=== PATIENT | female | born 1985 | race Caucasian/White ===

== ENCOUNTER 2016-03-07 18:05 | Emergency (ER) | payer MEDICAID ==
--- NOTE | 2016-03-07 18:27 | ER Document Report ---
ED Medical Screen (RME) - General Stated Complaint: HEAD PAIN Notes: headache over the past couple of days that has become more severe today. dizzyness h/o HTN I have greeted and performed a rapid initial assessment of this patient. A comprehensive ED assessment and evaluation of the patient, analysis of test results and completion of the medical decision making process will be conducted by additional ED providers. TRAVEL OUTSIDE OF THE [place] IN LAST 30 DAYS: No - Related Data Allergies/Adverse Reactions: No Known Allergies Allergy (Unverified 01/05/16 20:48) Past Medical History - Past Medical History Cardiac Medical History: Reports: Hx Hypertension Past Surgical History: Reports: Hx Appendectomy, Hx Orthopedic Surgery - L Knee , Hx Tubal Ligation - Immunizations Hx Diphtheria, Pertussis, Tetanus Vaccination: Yes Physical Exam - Vital signs Vitals: Temp Pulse Resp BP Pulse Ox 98.3 F 88 20 149/113 H 97 03/07/16 18:24 03/07/16 18:24 03/07/16 18:24 03/07/16 18:24 03/07/16 18:24 Course - Vital Signs Vital signs: Temp Pulse Resp BP Pulse Ox 98.3 F 88 20 149/113 H 97 03/07/16 18:24 03/07/16 18:24 03/07/16 18:24 03/07/16 18:24 03/07/16 18:24
[2016-03-07] MEDS ORDERED: ACETAMINOPHEN 325 MG TABLET PO ONE (18:31)
[2016-03-07 19:26] LABS: AMORPHOUS SEDIMENT,URINE TRACE /HPF; APPEARANCE,URINE TURBID; BILIRUBIN,URINE NEGATIVE (NEGATIVE); GLUCOSE, URINE NEGATIVE (NEGATIVE); KETONES,URINE NEGATIVE (NEGATIVE); LEUKOCYTE ESTERASE,URINE LARGE (NEGATIVE); NITRITE,URINE NEGATIVE (NEGATIVE); PROTEIN,URINE 30 mg/dL (NEGATIVE); URINE SPECIFIC GRAVITY 1.028
[2016-03-07 19:33] LABS: ALANINE AMINOTRANSFERASE 36 U/L (9-52); ALBUMIN 4.3 g/dL (3.5-5.0); ALKALINE PHOSPHATASE 89 U/L (38-126); ANION GAP 14 (5-19); ASPARTATE AMINO TRANSFERASE 24 U/L (14-36); BILIRUBIN,TOTAL 0.4 mg/dL (0.2-1.3); BLOOD UREA NITROGEN 15 mg/dL (7-20); CALCIUM 9.6 mg/dL (8.4-10.2); CARBON DIOXIDE 27 mmol/L (22-30); CHLORIDE 102 mmol/L (98-107); CREATININE RESULT 0.76 mg/dL (0.52-1.25); GLUCOSE 106 mg/dL (75-110); POTASSIUM 4.3 mmol/L (3.6-5.0); SODIUM 142.6 mmol/L (137-145); TOTAL PROTEIN 8.1 g/dL (6.3-8.2)
[2016-03-07] MEDS ORDERED: METOCLOPRAMIDE HCL INJ/PF 10 MG/2 ML SDV IM ONE (22:12)
[2016-03-07] MEDS ORDERED: DIPHENHYDRAMINE HCL 50 MG/ML VIAL IM ONE (22:12)
[2016-03-07] MEDS ORDERED: KETOROLAC TROMETHAMINE 60 MG/2 ML SDV IM ONE (22:12)
--- NOTE | 2016-03-07 22:51 | ER Document Report ---
ED General - General Chief Complaint: Headache Stated Complaint: HEAD PAIN Notes: Patient is a 30-year-old female who presents with complaint of a headache. She says been ongoing for 3 days. Gradual in onset. Gradually worsening over last 3 days. Pain is focal to the frontal sinuses. She does not have pain anywhere else. She denies any vomiting. No fevers. No recent infections. No recent trauma or injuries. No focal weakness or numbness. No blurred vision. Some photophobia. No other complaints at this time. TRAVEL OUTSIDE OF THE [place] IN LAST 30 DAYS: No - Related Data Allergies/Adverse Reactions: No Known Allergies Allergy (Verified 03/07/16 18:30) Past Medical History - Social History Smoking Status: Unknown if Ever Smoked Chew tobacco use (# tins/day): No Frequency of alcohol use: None Drug Abuse: None Family History: Hypertension Patient has suicidal ideation: No Patient has homicidal ideation: No - Past Medical History Cardiac Medical History: Reports: Hx Hypertension Renal/ Medical History: Denies: Hx Peritoneal Dialysis Past Surgical History: Reports: Hx Appendectomy, Hx Orthopedic Surgery - L Knee , Hx Tubal Ligation - Immunizations Hx Diphtheria, Pertussis, Tetanus Vaccination: Yes Review of Systems - Review of Systems Notes: My Normal Review Basic REVIEW OF SYSTEMS: CONSTITUTIONAL : Denies fever, chills, or sweats. Denies recent illness. EENT: Denies eye, ear, throat, or mouth pain or symptoms. Denies nasal or sinus congestion. RESPIRATORY: Denies cough, cold, or chest congestion. Denies shortness of breath, difficulty breathing, or wheezing. GASTROINTESTINAL: Denies abdominal pain. Denies nausea, vomiting, or diarrhea. Denies constipation. Last BM: GENITOURINARY: Denies difficulty urinating, painful urination, burning, frequency, or blood in urine. MUSCULOSKELETAL: Denies neck or back pain or joint pain or swelling. SKIN: Denies rash or skin lesions. NEUROLOGICAL: Denies altered mental status or loss of consciousness. Has a headache. Denies weakness or paralysis or loss of use of either side. Denies problems with gait or speech. Denies sensory or motor loss. ALL OTHER SYSTEMS REVIEWED AND NEGATIVE. Physical Exam - Vital signs Vitals: Temp Pulse Resp BP Pulse Ox 98.3 F 88 20 149/113 H 97 03/07/16 18:24 03/07/16 18:24 03/07/16 18:24 03/07/16 18:24 03/07/16 18:24 - Notes Notes: General Appearance: Well nourished, alert, cooperative, no acute distress, moderate obvious discomfort. Vitals: reviewed, See vital signs table. Head: no swelling or tenderness to the head Eyes: PERRL, EOMI, Conjuctiva clear Mouth: No decreasd moisture Neck: Supple, no neck tenderness, No thyromegaly Lungs: No wheezing, No rales, No rhonci, No accessory muscle use, good air exchange bilaterally. Heart: Normal rate, Regular rythm, No murmur, no rub Abdomen: Normal BS, soft, No rigidity, No abdominal tenderness, No guarding, no rebound, no abdominal masses, no organomegaly Extremities: strength 5/5 in all extremities, good pulses in all extremities, no swelling or tenderness in the extremities, no edema. Skin: warm, dry, appropriate color, no rash Neuro: speech clear, oriented x 3, normal affect, responds appropriately to questions. Cranial nerves II through XII are intact. Distal sensation intact. Patient moves all extremities without difficulty. Course - Vital Signs Vital signs: Temp Pulse Resp BP Pulse Ox 98.3 F 88 20 167/91 H 97 03/07/16 18:24 03/07/16 18:24 03/07/16 18:24 03/07/16 18:29 03/07/16 18:24 - Laboratory Result Diagrams: 03/07/16 18:55 Laboratory results interpreted by me: 03/07/16 18:55 Urine Protein 30 H Urine Blood MODERATE H Urine Urobilinogen 2.0 H Ur Leukocyte Esterase LARGE H - EKG Interpretation by Me Additional EKG results interpreted by me: 03/07/16 22:51 EKG is reviewed and interpreted by me. EKG shows normal sinus rhythm with rate of [address] segment elevation or depression. No ischemic T wave inversions. ID interval, QRS duration, QTC intervals are within normal range. No old EKG available for comparison. - Transfer of Care Notes: 03/07/16 23:59 Patient's headache is gone. She is feeling improved. She looks well. She has no neurologic deficits on exam. I do not suspect subarachnoid hemorrhage that her headache is gradual in onset and gradually worsening over last 3 days. It was not sudden or maximal in onset. I suspect there may be a sinus component to her headache being that her sinuses are very tender to touch on palpation. She has no fevers and no fluid levels on CT scan in her sinuses. Do not feel that antibiotics. At this time. CT scan was ordered in triage before evaluated the patient. CT scan was negative. Patient encouraged return to ER she has recurrent worsening headache, fevers, vomiting, or feels unwell. Patient agrees with plan and will be discharged home. Dictation of this chart was performed using voice recognition software; therefore, there may be some unintended grammatical errors. Discharge - Discharge Clinical Impression: Headache Qualifiers: Headache type: unspecified Headache chronicity pattern: acute headache Intractability: not intractable Qualified Code(s): R51 - Headache Hypertension Qualifiers: Hypertension type: unspecified secondary hypertension Qualified Code(s): I15.9 - Secondary hypertension, unspecified; I15 - Secondary hypertension Condition: Good Disposition: HOME, SELF-CARE Additional Instructions: HEADACHE: The physician does not feel that the headache you are experiencing has a serious underlying cause. Most headaches are due to emotional stress, with resultant muscle tension (tension headache). Occasionally, headaches are secondary to changes in the blood vessels of the scalp (vascular headache and migraine headache). Sometimes, a headache is the first symptom of another developing illness, such as a viral infection. You have no evidence of stroke, bleeding, meningitis, or other serious cause of your headache. The treatment of headaches varies with the severity and cause of the pain. Not all headaches need pain shots. In fact, there is evidence that using narcotics for headaches may make them worse in the long run. The physician will determine the therapy that's in your best interest. If you develop a fever, if the headache is different from any you've previously experienced, or if the headache progressively worsens, then call your physician at once or go to the emergency room. REGLAN (METOCLOPRAMIDE): Reglan has been prescribed. This medicine affects the stomach and intestines. It can be used to treat nausea and vomiting, to prevent reflux of stomach acid up into the esophagus, or to increase the contractions of the stomach and intestines. It is often prescribed for esophagitis, and for paralysis of the stomach in diabetics. Reglan can cause either mild restlessness or drowsiness. You should contact the doctor at once if you become extremely restless, anxious, or cannot sleep, or if you develop uncontrollable motions of the lips, tongue, or jaw. Do not take alcohol with this medicine. Do not drive or operate machinery until you have been taking this medicine long enough to know how it affects you. Call the doctor if you develop abdominal pains, lightheadedness, black stool, or blood in the stool or vomitus. USE OF DIPHENHYDRAMINE: Diphenhydramine (Benadryl) is an antihistamine and has been recommended to help treat your headache and to prevent side effects of other medications used to treat headaches. The medication can be repeated four times daily. Age Elixir (12.5 mg/tsp) 25 mg pill adult 1-2 tabs Antihistamines may cause drowsiness, especially with the first dose. Do not operate machinery or drive while under the effects of the medication. Do not combine the medication with alcohol, or with any other medication without talking to your doctor. FOLLOW-UP CARE: If you have been referred to a physician for follow-up care, call the physician s office for an appointment as you were instructed or within the next two days. If you experience worsening or a significant change in your symptoms, notify the physician immediately or return to the Emergency Department at any time for re-evaluation. Please follow up with your doctor in 2-3 days for reevaluation. Please return to the ER if you have recurrent headaches, fevers, vomiting, blurred vision, or feel unwell. Please keep a log of her blood pressures. Please take them daily. Please bring a log of your blood pressures to a primary care physician to evaluate to see if you need to be started on blood pressure medications if your blood pressure continues to be high. Prescriptions: Diphenhydramine HCl [Benadryl] 25 mg PO Q6 PRN #30 capsule PRN Reason: Metoclopramide HCl [Reglan 10 mg Tablet] 1 tab PO ASDIR PRN #25 tablet PRN Reason: Forms: Elevated Blood Pressure
[2016-03-08 00:37] VITALS: BP 137/94
--- NOTE | 2016-03-08 08:01 | EKG REPORT ---
SEVERITY:- NORMAL ECG - SINUS RHYTHM : Confirmed by: Eusebio Chu MD 08-Mar-2016 08:00:36
== END 2016-03-08 01:00 | disposition home or self-care (01) ==
LOC: ER 18:05
DX: I10 Essential (primary) hypertension (principal); R51 Headache
CPT/HCPCS: 99285; 96372; 36415; 80053; 81001; 70450; 93005; 93010; J3490; J1200; J1885; J2765

== ENCOUNTER 2016-04-03 15:19 | Emergency (ER) | payer MEDICAID ==
[2016-04-03] MEDS ORDERED: IBUPROFEN 800 MG TABLET PO ONE (16:41)
--- NOTE | 2016-04-03 16:41 | ER Document Report ---
ED Medical Screen (RME) - General Stated Complaint: LEFT FOOT INJURY Time seen by provider: 16:40 Mode of Arrival: Ambulatory Information source: Patient Notes: 30-year-old female presents to ED for pain to her left foot. She states she dropped the glass tray out of her refrigerator onto her foot and severe pain on the upper foot near the ankle. Some bruising and swelling. Last menstrual period 04/01/2016 I have greeted and performed a rapid initial assessment of this patient. A comprehensive ED assessment and evaluation of the patient, analysis of test results and completion of medical decision making process will be conducted by an additional ED providers. TRAVEL OUTSIDE OF THE [place] IN LAST 30 DAYS: No - Related Data Allergies/Adverse Reactions: No Known Allergies Allergy (Verified 04/03/16 16:39) Past Medical History - Past Medical History Cardiac Medical History: Reports: Hx Hypertension Renal/ Medical History: Denies: Hx Peritoneal Dialysis Past Surgical History: Reports: Hx Appendectomy, Hx Orthopedic Surgery - L Knee , Hx Tubal Ligation - Immunizations Hx Diphtheria, Pertussis, Tetanus Vaccination: Yes
--- NOTE | 2016-04-03 19:46 | ER Document Report ---
HPI - HPI Patient complains to provider of: pain to left foot Onset: This afternoon Onset/Duration: Sudden Quality of pain: Throbbing Pain Level: 3 Associated Symptoms: Other - Pain was a small bruise to the top of the left foot Exacerbated by: Movement, Walking Relieved by: Denies Similar symptoms previously: No Recently seen / treated by doctor: No - ROS ROS below otherwise negative: Yes - CONSTITUTIONAL Constitutional: DENIES: Fever, Chills - EENT EENT: DENIES: Sore Throat, Ear Pain, Nasal Drainage-Clear, Nasal Drainage- Purulent, Congestion, Eye problems - NEURO Neurology: DENIES: Headache, Weakness, Vision blurred, Dizzinesss / Vertigo - CARDIOVASCULAR Cardiovascular: DENIES: Chest pain - RESPIRATORY Respiratory: DENIES: Trouble Breathing, Coughing - GASTROINTESTINAL Gastrointestinal: DENIES: Abdominal Pain, Nausea, Patient vomiting, Diarrhea, Constipation, Black / Bloody Stools - URINARY Urinary: DENIES: Dysuria, Urgency, Frequency - REPRODUCTIVE Reproductive: DENIES: :, Postmenopausal, Abnormal bleeding / discharge - MUSCULOSKELETAL Musculoskeletal: REPORTS: Extremity pain. DENIES: Back Pain, Neck Pain, Swelling - DERM Skin Color: Ecchymosis, Other - Small ecchymotic area to the left foot minimal swelling Skin Problems: None Past Medical History - General Information source: Patient - Social History Smoking Status: Never Smoker Chew tobacco use (# tins/day): No Frequency of alcohol use: None Drug Abuse: None Family History: CAD, COPD, CVA, DM, Hyperlipidemia, Hypertension Patient has suicidal ideation: No Patient has homicidal ideation: No - Past Medical History Cardiac Medical History: Reports: Hx Hypertension Pulmonary Medical History: Reports: None EENT Medical History: Reports: None Neurological Medical History: Reports: None Endocrine Medical History: Reports: None Renal/ Medical History: Reports: None Malignancy Medical History: Reports: None GI Medical History: Reports: None Musculoskeltal Medical History: Reports None Skin Medical History: Reports None Psychiatric Medical History: Reports: None Traumatic Medical History: Reports: None Infectious Medical History: Reports: None Past Surgical History: Reports: Hx Appendectomy, Hx Orthopedic Surgery - L Knee , Hx Tubal Ligation - Immunizations Immunizations up to date: Yes Hx Diphtheria, Pertussis, Tetanus Vaccination: Yes Vertical Provider Document - CONSTITUTIONAL Agree With Documented VS: Yes Exam Limitations: No Limitations General Appearance: WD/WN, Mild Distress - INFECTION CONTROL TRAVEL OUTSIDE OF THE [place] IN LAST 30 DAYS: No - HEENT HEENT: Atraumatic, Normal ENT Exam, Normocephalic, PERRLA - NECK Neck: Normal Inspection, Supple - RESPIRATORY Respiratory: Breath Sounds Normal, No Respiratory Distress, Chest Non-Tender O2 Sat by Pulse Oximetry: 97 - MUSCULOSKELETAL/EXTREMETIES Musculoskeletal/Extremeties: Tender - Left foot top of the foot bruised mild swelling, Edema, Eccymosis - NEURO Level of Consciousness: Awake, Alert, Appropriate Deep Tendon Reflexes: 2+ - DERM Integumentary: Warm, No Rash Course - Re-evaluation Re-evalutation: 04/03/16 20:07 Discussed x-ray with patient written report given to patient for follow-up patient provided ice ibuprofen and crutches and discharged home - Vital Signs Vital signs: Temp Pulse Resp BP Pulse Ox 98.3 F 89 18 146/101 H 97 04/03/16 16:17 04/03/16 16:17 04/03/16 16:17 04/03/16 16:17 04/03/16 16:17 - Diagnostic Test Radiology reviewed: Image reviewed, Reports reviewed Procedures - Immobilization Left Foot Time completed: 20:07 Immobilizer type: Crutches Performed by: PCT Post-Proc Neuro Vasc Exam: Normal Alignment checked and good: Yes Discharge - Discharge Clinical Impression: Contusion of left foot Qualifiers: Encounter type: initial encounter Qualified Code(s): S90.32XA - Contusion of left foot, initial encounter Condition: Stable Disposition: HOME, SELF-CARE Instructions: Family Physicians / Practices Additional Instructions: CONTUSION: Your injury has resulted in a contusion -- a crushing of the deep tissues. No injury to important structures was detected during the physician's exam. Contusions vary in the amount of pain they cause, and in the length of time required for healing. Typically, the area will become bruised, and will remain painful to touch for two or three weeks. However, most patients are back to working and playing within a few days. After the initial period of rest and cold-packs, your symptoms (together with the doctor's recommendations) will determine how rapidly you can get back to full activity. Usually this means "do what feels okay, but don't do things that hurt." If re-examination was recommended, it's important to follow up as instructed. Call the doctor or return any time if pain increases, if swelling becomes severe, if you develop numbness or weakness in an injured extremity, or if any other alarming symptoms occur. USE OF TYLENOL (ACETAMINOPHEN): Acetaminophen may be taken for pain relief or fever control. It's much safer than aspirin, offering a wider range of "safe" dosages. It is safe during . Some brand names are Tylenol, Panadol, Datril, Anacin 3, Tempra, and Liquiprin. Acetaminophen can be repeated every four hours. The following are maximum recommended dosages: WEIGHT Dose Drops Elixir Chewable( 80mg) (LBS.) drprs=droppers tsp=teaspoon 6 40 mg 0.4 ml (1/2) 6-11 80 mg 0.8 ml (full) tsp 1 tab 12-16 120 mg 1 1/2 drprs 3/4 tsp 1 1/2 tabs 17-23 160 mg 2 drprs 1 tsp 2 tabs 24-30 240 mg 3 drprs 1 1/2 tsp 3 tabs 30-35 320 mg 2 tsp 4 tabs 36-41 360 mg 2 1/4 tsp 4 1/2 tabs 42-47 400 mg 2 1/2 tsp 5 tabs 48-53 480 mg 3 tsp 6 tabs 54-59 520 mg 3 1/4 tsp 6 1/2 tabs 60-64 560 mg 3 1/2 tsp 7 tabs 65-70 600 mg 3 3/4 tsp 7 1/2 tabs 71-76 640 mg 4 tsp 8 tabs 77-82 720 mg 4 1/2 tsp 9 tabs 83-88 800 mg 5 tsp 10 tabs >89 pounds or adults 650 mg to 900 mg Acetaminophen can be repeated every four hours. Maximum dose not to exceed 4000 mg a day. These maximum recommended dosages are slightly higher than the dosages written on the product container, but these dosages are very safe and below the toxic dosage for acetaminophen. USE OF CRUTCHES: The doctor has recommended that you not bear weight at this time. You will need to use crutches. Adjust the crutches so the tops come to about two inches under the armpit while you are standing upright. Use your hands -- not your armpits -- to support your weight. To get into a chair, support yourself with one crutch on the injured side. Hold the chair with the other hand, then lower yourself while putting all your weight on the good leg. Going up stairs is `good leg up, step up, then bring up crutches and bad leg.' Down stairs is `bad leg and crutches down, then bring good leg down.' If you develop numbness or swelling in an arm or hand, you are using the crutches incorrectly. Return if you are having any problems with the crutches. ICE & ELEVATION: Apply ice packs frequently against the painful area. Many different schedules are recommended, such as "20 minutes on, 20 minutes off" or "one hour ice, two hours rest." If you need to work, you may need to go longer between ice treatments. You should plan to have the area ice packed AT LEAST one- fourth of the time. The ice should be applied over the wrap, tape, or splint, or over a layer of cloth -- not directly against the skin. Some ice bags have a built-in cloth and can be put directly on the skin. Your injured part should be elevated as much as possible over the next 48 hours. Try to keep the injury above the level of the heart. Avoid use of the injured area. Elevation and rest will decrease the swelling. USE OF XATY-[id number] IBUPROFEN: Ibuprofen (Advil, Nuprin, Medipren, Motrin IB) is a medication for fever and pain control. In addition, it has anti- inflammatory effects which may be beneficial, especially in the treatment of injuries. It's best to take ibuprofen with food. Persons with ulcer disease or allergy to aspirin should notify their physician of this before taking ibuprofen. Ibuprofen can be given every four to six hours, for a total of four doses daily. Age Pain or fever dose Antiinflammatory dose 6-8 yr 200 mg (1 tab) 200 mg (1 tab) 9-11 yr 200 mg (1 tab) 200-400 mg (1-2 tab) 11-14 yr 200-400 mg (1-2 tab) 400 mg (2 tab) 15-adult 400 mg (2 tab) 600 mg (3 tab) FOLLOW-UP CARE: If you have been referred to a physician for follow-up care, call the physician s office for an appointment as you were instructed or within the next two days. If you experience worsening or a significant change in your symptoms, notify the physician immediately or return to the Emergency Department at any time for re-evaluation. Prescriptions: Ibuprofen 600 mg PO Q6HP PRN #20 tablet PRN Reason:
[2016-04-03 20:03] VITALS: BP 150/92
== END 2016-04-03 20:05 | disposition home or self-care (01) ==
LOC: ER 15:19
DX: S90.32XA Contusion of left foot, initial encounter (principal); X58.XXXA Exposure to other specified factors, initial encounter; Z98.51 Tubal ligation status
CPT/HCPCS: 99283; 73630; J3490

== ENCOUNTER 2016-05-17 15:57 | Emergency (ER) | payer MEDICAID ==
--- NOTE | 2016-05-17 16:52 | ER Document Report ---
ED Medical Screen (RME) - General Stated Complaint: SORE THROAT Notes: Patient complains of sore throat and dry cough since yesterday. Denies nasal congestion. No fever. Voice is hoarse. I have greeted and performed a rapid initial assessment of this patient. A comprehensive ED assessment and evaluation of the patient, analysis of test results and completion of the medical decision making process will be conducted by additional ED providers. TRAVEL OUTSIDE OF THE [place] IN LAST 30 DAYS: No - Related Data Allergies/Adverse Reactions: No Known Allergies Allergy (Verified 05/17/16 16:50) Past Medical History - Past Medical History Cardiac Medical History: Reports: Hx Hypertension Renal/ Medical History: Denies: Hx Peritoneal Dialysis Past Surgical History: Reports: Hx Appendectomy, Hx Orthopedic Surgery - L Knee , Hx Tubal Ligation - Immunizations Immunizations up to date: Yes Hx Diphtheria, Pertussis, Tetanus Vaccination: Yes Physical Exam - Vital signs Vitals: Temp Pulse Resp BP Pulse Ox 98.7 F 94 16 146/110 H 98 05/17/16 16:40 05/17/16 16:40 05/17/16 16:40 05/17/16 16:40 05/17/16 16:40 - HEENT Notes: Throat with mild erythema, uvula with mild edema. No airway compromise noted. Course - Vital Signs Vital signs: Temp Pulse Resp BP Pulse Ox 98.7 F 94 16 146/110 H 98 05/17/16 16:40 05/17/16 16:40 05/17/16 16:40 05/17/16 16:40 05/17/16 16:40
--- NOTE | 2016-05-17 18:32 | ER Document Report ---
ED ENT - General Chief Complaint: Sore Throat Stated Complaint: SORE THROAT Time seen by provider: 18:26 Mode of Arrival: Ambulatory Information source: Patient Notes: 81-year-old female presents to ED TRAVEL OUTSIDE OF THE [place] IN LAST 30 DAYS: No - HPI Patient complains to provider of: Nose problem, Throat problem Onset: Yesterday Onset/Duration: Gradual Quality of pain: Sharp Severity: Moderate Pain Level: 3 Context: Recent Illness Location of pain: Sinus Associated symptoms: Runny nose, Sinus drainage, Sore throat, Other - Elevated blood pressure Similar symptoms previously: Yes Recently seen / treated by doctor: No - Related Data Allergies/Adverse Reactions: No Known Allergies Allergy (Verified 05/17/16 16:50) Past Medical History - General Information source: Patient - Social History Smoking Status: Never Smoker Cigarette use (# per day): No Chew tobacco use (# tins/day): No Smoking Education Provided: No Frequency of alcohol use: None Drug Abuse: None Lives with: Family Family History: Arthritis, CAD, COPD, CVA, DM, Hyperlipidemia, Hypertension, Thyroid Disfunction Patient has suicidal ideation: No Patient has homicidal ideation: No - Past Medical History Cardiac Medical History: Reports: Hx Hypertension Pulmonary Medical History: Reports: None EENT Medical History: Reports: None Neurological Medical History: Reports: None Endocrine Medical History: Reports: None Renal/ Medical History: Reports: None Malignancy Medical History: Reports: None GI Medical History: Reports: None Musculoskeltal Medical History: Reports None Skin Medical History: Reports None Psychiatric Medical History: Reports: None Traumatic Medical History: Reports: None Infectious Medical History: Reports: None Past Surgical History: Reports: Hx Appendectomy, Hx Orthopedic Surgery - L Knee , Hx Tubal Ligation - Immunizations Immunizations up to date: Yes Hx Diphtheria, Pertussis, Tetanus Vaccination: Yes Review of Systems - Review of Systems Constitutional: No symptoms reported EENT: Nose discharge, Sinus discharge, Throat pain Cardiovascular: No symptoms reported Respiratory: Cough Gastrointestinal: No symptoms reported Genitourinary: No symptoms reported Female Genitourinary: No symptoms reported Musculoskeletal: No symptoms reported Skin: No symptoms reported Hematologic/Lymphatic: No symptoms reported Neurological/Psychological: No symptoms reported -: Yes All other systems reviewed and negative Physical Exam - Vital signs Vitals: Temp Pulse Resp BP Pulse Ox 98.7 F 94 16 146/110 H 98 05/17/16 16:40 05/17/16 16:40 05/17/16 16:40 05/17/16 16:40 05/17/16 16:40 Interpretation: Hypertensive - General General appearance: Appears well, Alert - HEENT Head: Normocephalic, Atraumatic Eyes: Normal Pupils: PERRL Ears: Normal External canal: Normal Tympanic membrane: Normal Sinus: Normal Nasal: Purulent discharge, Swelling Mouth/Lips: Normal, Other Pharynx: Post nasal drainage Neck: Normal - Respiratory Respiratory status: No respiratory distress Chest status: Nontender Breath sounds: Nonproductive cough Chest palpation: Normal - Cardiovascular Rhythm: Regular Heart sounds: Normal auscultation Murmur: No - Abdominal Inspection: Normal Distension: No distension Bowel sounds: Normal Tenderness: Nontender Organomegaly: No organomegaly - Back Back: Normal, Nontender - Extremities General upper extremity: Normal inspection, Nontender, Normal color, Normal ROM , Normal temperature General lower extremity: Normal inspection, Nontender, Normal color, Normal ROM , Normal temperature, Normal weight bearing. No: Hansel's sign - Neurological Neuro grossly intact: Yes Cognition: Normal Orientation: AAOx4 [place] Coma Scale Eye Opening: Spontaneous [place] Coma Scale Verbal: Oriented [place] Coma Scale Motor: Obeys Commands [place] Coma Scale Total: 15 Speech: Normal Motor strength normal: LUE, RUE, LLE, RLE Sensory: Normal - Psychological Associated symptoms: Normal affect, Normal mood - Skin Skin Temperature: Warm Skin Moisture: Dry Skin Color: Normal Course - Re-evaluation Re-evalutation: 05/17/16 18:44 Patient was treated with lisinopril before discharging home. I have called becka maldonado who the patient states is her pharmacist and they stated she had not had a prescription for lisinopril since 2014. Patient and father both state that she has a few lisinopril left at home but that she does not have a refill on the prescription. Instructed patient to follow[facility]up with [facility] to continue her blood pressure medication and to be sure that she does fill them. Patient recommended use and saline spray for her nose and warm saltwater gargles for her sore throat. - Vital Signs Vital signs: Temp Pulse Resp BP Pulse Ox 97.8 F 76 16 152/97 H 98 05/17/16 18:57 05/17/16 18:57 05/17/16 18:57 05/17/16 18:57 05/17/16 18:57 Discharge - Discharge Clinical Impression: Sore throat (viral) Condition: Stable Disposition: HOME, SELF-CARE Additional Instructions: SORE THROAT: Sore throats may be caused by viruses, bacteria, or fungi. Most are due to a virus, and must get better on their own. Bacterial sore throats, particularly those due to "strep," need treatment with antibiotics. If an antibiotic is prescribed, be sure to take the medication for a full 10 days. Failure to take the antibiotic can result in complications such as rheumatic fever. Sometimes, an injection of antibiotics is given instead of pills or liquid. This single "shot" is equal in effectiveness to the oral medication. To relieve symptoms, take acetaminophen for pain. Sip clear liquids frequently, or eat popsicles or ice chips. Anesthetic sprays or lozenges may help. Make sure the air in the room is not too dry. Avoid using decongestants or antihistamines. Call the doctor if there is no improvement in two days, or if you have difficulty breathing, increasing throat pain, high fever, rash, or frequent vomiting. HIGH BLOOD PRESSURE REQUIRING TREATMENT: Your blood pressure is high. This is called "hypertension." Today's reading was 146/110 (normal is less than 140/90). Your history and exam suggest that this is not a temporary problem. You need treatment of your blood pressure. If left untreated, high blood pressure greatly increases your risk of heart attack and stroke. Please don't ignore this problem. If you have blood pressure medicine but aren't using it regularly, start taking it again. Some simple things you can do to help are: Get some aerobic exercise for at least 20 minutes on a daily basis. (See your doctor before beginning any new exercise program.) Eat a low-fat diet. Lose excess weight. Avoid salty foods and avoid adding salt to any of the foods you eat. Avoid diet pills, decongestants, "energizing" herbs, and other medicines that elevate blood pressure. There are many different medicines that treat blood pressure. If your medication causes unpleasant side effects, call your doctor. There are others you can try. Treating hypertension is a life-long investment in your health. UPPER RESPIRATORY ILLNESS: You have a viral infection of the respiratory passages -- a "cold." This common infection causes nasal congestion, drainage, and often sore throat and cough. It is highly contagious. The disease usually lasts about 10 to 14 days. There is no "cure" for the viral infection -- it must run its course. If there is a complication, such as bacterial infection in the nose, sinuses, middle ear, or bronchial tubes, antibiotics may be required. The antibiotics won't affect the virus. Drink plenty of fluids. A humidifier may help. An expectorant medication or decongestant may make you more comfortable. Use acetaminophen or ibuprofen for fever or aches. See the doctor if fever persists over two days, if there is any significant worsening of your symptoms, or if you simply fail to improve as expected. USE OF ACETAMINOPHEN (Tylenol): Acetaminophen may be taken for pain relief or fever control. It's much safer than aspirin, offering a wider range of "safe" dosages. It is safe during . Some brand names are Tylenol, Panadol, Datril, Anacin 3, Tempra, and Liquiprin. Acetaminophen can be repeated every four hours. The following are maximum recommended dosages: >89 pounds or adults 650 mg to 900 mg Acetaminophen can be repeated every four hours. Maximum dose not to exceed 4000 mg a day. ANGIOTENSIN CONVERTING ENZYME INHIBITOR MEDICATION: "TRINI inhibitor" drugs are used to lower high blood pressure (or to reduce the "work" of the heart in patients with heart failure). These drugs block an enzyme that makes your blood vessels constrict and makes you retain salt. The result is lower blood pressure. TRINI inhibitors cause few side effects. The most common side effect is a dry nagging cough. Occasionally, lightheadedness may occur while you get used to the medicine. Some patients may retain extra potassium (this is a problem if you are taking potassium supplements, potassium-containing salt substitutes, or a potassium-retaining drug such as triamterene, spironolactone, or amiloride) . If you are taking lithium, the lithium level must be rechecked after starting an TRINI inhibitor. TRINI inhibitors should NOT be used during . Contact the doctor or return if you develop severe lightheadedness, wheeze , weakness, palpitations or other new symptoms. FOLLOW-UP CARE: If you have been referred to a physician for follow-up care, call the physician s office for an appointment as you were instructed or within the next two days. If you experience worsening or a significant change in your symptoms, notify the physician immediately or return to the Emergency Department at any time for re-evaluation. Prescriptions: Lisinopril 10 mg PO DAILY #30 tablet Forms: Elevated Blood Pressure Referrals: [facility] [Provider Group] - Follow up as needed
[2016-05-17] MEDS ORDERED: LISINOPRIL 10 MG TABLET PO ONE (18:39)
[2016-05-17 19:20] VITALS: BP 152/97
== END 2016-05-17 18:57 | disposition home or self-care (01) ==
LOC: ER 15:57
DX: J02.8 Acute pharyngitis due to other specified organisms (principal); B97.89 Other viral agents as the cause of diseases classified elsewhere; R09.89 Other specified symptoms and signs involving the circulatory and respiratory systems; R09.82 Postnasal drip; R05 Cough; I10 Essential (primary) hypertension
CPT/HCPCS: 99282; 87070; 87880; J3490

== ENCOUNTER 2017-02-01 18:55 | Emergency (ER) | payer MEDICAID ==
[2017-02-01] MEDS ORDERED: HYDROCODONE/ACETAMINOPHEN 5-325 MG TABLET PO ONE (19:44)
--- NOTE | 2017-02-01 20:24 | RADIOLOGY REPORT (SQ) ---
EXAM DESCRIPTION: T SPINE AP/LAT COMPLETED DATE/TIME: 02/01/2017 8:12 pm REASON FOR STUDY: LS pain after lifting COMPARISON: None. NUMBER OF VIEWS: Two views. TECHNIQUE: AP and lateral radiographic images acquired of the thoracic spine. LIMITATIONS: None. FINDINGS: MINERALIZATION: Normal. ALIGNMENT: Normal. No scoliosis. VERTEBRAE: No fracture or bone lesion. Maintained height, normal segmentation. DISCS: No significant loss of height or significant narrowing. No large osteophytes. HARDWARE: None in the spine. MEDIASTINUM AND SOFT TISSUES: Normal heart size and aortic contour. No soft tissue abnormality. VISUALIZED LUNG HUMPHRIES: Clear. OTHER: No other significant finding. IMPRESSION: NO SIGNIFICANT RADIOGRAPHIC FINDING IN THE THORACIC SPINE. TECHNICAL DOCUMENTATION: JOB ID: [id number] [employer]- All Rights Reserved
--- NOTE | 2017-02-01 20:24 | RADIOLOGY REPORT (SQ) ---
EXAM DESCRIPTION: L SPINE WHOLE COMPLETED DATE/TIME: 02/01/2017 8:12 pm REASON FOR STUDY: LS pain after lifting COMPARISON: None. NUMBER OF VIEWS: Five views including obliques. TECHNIQUE: AP, lateral, oblique, and sacral radiographic images acquired of the lumbar spine. LIMITATIONS: None. FINDINGS: MINERALIZATION: Normal. SEGMENTATION: Normal. No transitional anatomy. ALIGNMENT: Normal. VERTEBRAE: Maintained height. No fracture or worrisome bone lesion. DISCS: Preserved height. No significant osteophytes or end plate irregularity. POSTERIOR ELEMENTS: Pedicles and facets are intact. No pars defect or posterior arch defects. HARDWARE: None in the spine. PARASPINAL SOFT TISSUES: Normal. PELVIS: Intact as visualized. No fractures or worrisome bone lesions. SI joints intact. OTHER: No other significant finding. IMPRESSION: NORMAL 5 VIEW LUMBAR SPINE. TECHNICAL DOCUMENTATION: JOB ID: [id number] [employer]- All Rights Reserved
--- NOTE | 2017-02-01 22:16 | ER Document Report ---
ED General - General Chief Complaint: Low Back Pain Stated Complaint: BACK PAINS Time Seen by Provider: 02/01/17 19:36 Mode of Arrival: Ambulatory Information source: Patient, Parent Notes: Patient is a 31-year-old morbidly obese white female comes emergency room stating that she hurt her back at work. When asked further patient states she does not want to make this a workers comp. 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 Patient did not have any loss of urine or stool she has no paresthesia running down the legs but she does state that it hurts to move. Patient denies any other medical problems at this time. TRAVEL OUTSIDE OF THE [place] IN LAST 30 DAYS: No - HPI Onset: Just prior to arrival Onset/Duration: Sudden, Worse Quality of pain: Sharp, Throbbing Severity: Moderate Pain Level: 3 Context: Lifting at work Does not want workers comp Associated symptoms: None Exacerbated by: Sitting, Standing, Movement, Walking Relieved by: Denies Similar symptoms previously: No Recently seen / treated by doctor: No - Related Data Allergies/Adverse Reactions: No Known Allergies Allergy (Verified 02/01/17 18:59) Past Medical History - General Information source: Patient, Friend - Social History Smoking Status: Current Every Day Smoker Cigarette use (# per day): Yes Smoking Education Provided: Yes Frequency of alcohol use: None Drug Abuse: None Family History: Arthritis, CAD, COPD, CVA, DM, Hyperlipidemia, Hypertension, Thyroid Disfunction Patient has suicidal ideation: No Patient has homicidal ideation: No - Past Medical History Cardiac Medical History: Reports: Hx Hypertension Renal/ Medical History: Denies: Hx Peritoneal Dialysis Past Surgical History: Reports: Hx Appendectomy, Hx Orthopedic Surgery - L Knee , Hx Tubal Ligation - Immunizations Immunizations up to date: Yes Hx Diphtheria, Pertussis, Tetanus Vaccination: Yes Review of Systems - Review of Systems Constitutional: No symptoms reported EENT: No symptoms reported Cardiovascular: No symptoms reported Respiratory: No symptoms reported Gastrointestinal: No symptoms reported Genitourinary: No symptoms reported Female Genitourinary: No symptoms reported Musculoskeletal: Back pain, Muscle pain Skin: No symptoms reported Hematologic/Lymphatic: No symptoms reported Neurological/Psychological: No symptoms reported -: Yes All other systems reviewed and negative Physical Exam - Vital signs Vitals: Temp Pulse Resp BP Pulse Ox 98.3 F 99 16 150/95 H 97 02/01/17 19:07 02/01/17 19:07 02/01/17 19:07 02/01/17 19:07 02/01/17 19:07 Interpretation: Hypertensive - General General appearance: Alert, Other - Uncomfortable appearing In distress: Moderate - Respiratory Respiratory status: No respiratory distress Chest status: Nontender Breath sounds: Normal. No: Decreased air movement, Nonproductive cough, Productive cough, Rales, Rhonchi, Stridor, Wheezing, Other - Cardiovascular Rhythm: Regular Heart sounds: Normal auscultation Murmur: No - Abdominal Inspection: Normal Distension: No distension. No: Distended, Tympanitic, Fluid wave, Distended bladder, Other Bowel sounds: Normal Tenderness: Nontender Organomegaly: No organomegaly. No: Hepatomegaly, Splenomegaly, Mass, Other - Back Back: Tender, Vertebra tenderness, Other - Physical exam shows that patient has over exaggerated responce to touch. I had justr touched the lower lumbar region and before I could even put anyy pressure on the area with one finger patient began reacting as though I had used a needle. Inspection of area showed no sign of any type rash. She displayed good DTR's and vascular exam in bilat lower extremities. Straight leg raises neagative bilat. No: Normal, Nontender, Deformity/step-off, CVA tenderness, Scars, Scoliosis, Wounds - Extremities General upper extremity: Normal inspection, Normal strength General lower extremity: Normal inspection, Normal strength - Neurological Neuro grossly intact: Yes Cognition: Normal Orientation: AAOx4 Theodore Coma Scale Eye Opening: Spontaneous Theodore Coma Scale Verbal: Oriented [place] Coma Scale Motor: Obeys Commands Theodore Coma Scale Total: 15 Speech: Normal Course - Vital Signs Vital signs: Temp Pulse Resp BP Pulse Ox 97.6 F 82 16 121/64 96 02/01/17 22:28 02/01/17 22:28 02/01/17 19:07 02/01/17 22:28 02/01/17 22:28 - Diagnostic Test Radiology reviewed: Reports reviewed - Neg Discharge - Discharge Clinical Impression: Acute lumbosacral myofascial strain Qualifiers: Encounter type: initial encounter Qualified Code(s): S39.012A - Strain of muscle, fascia and tendon of lower back, initial encounter Condition: Good Disposition: HOME, SELF-CARE Instructions: Ice Packs ([facility]), Low Back Pain ([facility]), Muscle Strain ([facility]), Oral Narcotic Medication ([facility]), Warm Packs ([facility]) Additional Instructions: It appears that you have a lumbosacral strain. This is a acute injury from lifting moving twisting turning kind of injury. X-rays only show us if there was bone involvement like a fracture. A lot of times in lifting moving or pulling you can have a disc herniation or a muscle tear multiple other reasons for pain. At this time we are going to treat this as a muscle strain and work on place you on some pain medication a muscle relaxer and some steroids. You should ice down the area 3 times a day for the next 3-4 days and then you may use moist heat. Also this is something that needs to be addressed by your primary care physician and possible referral to orthopedist. If the pain continues more than 48 hours then you should probably contact her primary get a referral to orthopedic doctor. As far as work goes you may return to work light duty no lifting over 15 pounds for at least one week or until cleared by your physician. You have any loss of urine or stool if you find that you are walking or dragging her foot or have any other concerns at all return to ER to be rechecked. Prescriptions: Hydrocodone/Acetaminophen [[place] 7.5-325 mg Tablet] 1 tab PO Q4 #15 tablet Methocarbamol [Robaxin 500 mg Tablet] 500 mg PO BID #20 tablet Methylprednisolone [Medrol Dosepack (4 mg/Tab) 21 Tab/Dosepak] 4 mg PO ASDIR PRN #21 tab.ds.pk PRN Reason: Forms: Elevated Blood Pressure, Smoking Cessation Education, Return to Work Referrals: PEMA NGUYEN MD [ACTIVE STAFF] - Follow up as needed
[2017-02-01 22:29] VITALS: BP 121/64
== END 2017-02-01 22:25 | disposition home or self-care (01) ==
LOC: ER 18:55
DX: S39.012A Strain of muscle, fascia and tendon of lower back, initial encounter (principal); X50.0XXA Overexertion from strenuous movement or load, initial encounter; Y92.511 Restaurant or cafe as the place of occurrence of the external cause; Y99.0 Civilian activity done for income or pay; I10 Essential (primary) hypertension; E66.01 Morbid (severe) obesity due to excess calories; Z68.43 Body mass index [BMI] 50.0-59.9, adult; F17.210 Nicotine dependence, cigarettes, uncomplicated; Z71.6 Tobacco abuse counseling
CPT/HCPCS: 72070; 72110; 99283

== ENCOUNTER 2017-08-01 18:26 | Emergency (ER) | payer SELFPAY ==
[2017-08-01 18:35] VITALS: BP 149/101
--- NOTE | 2017-08-01 18:57 | ER Document Report ---
HPI - HPI Pain Level: 4 Notes: Patient is a 32-year-old female with no significant past medical history presents to the ED complaining of a sore throat, nasal congestion/discharge, dry nonproductive cough times 2 days. Patient still eating and drinking without difficulties. She is urinating and bowel movements. She denies any significant cardiopulmonary medical history. Denies any drug allergies. Denies any smoking or IV drug use. No other concerns or complaints at this time. Denies any headache, fever, neck pain, chest pain, palpitations, syncope , shortness of breath, wheeze, dyspnea, abdominal pain, nausea/vomiting/diarrhea , urinary retention, dysuria, hematuria, or rash. - ROS Systems Reviewed and Negative: Yes All other systems reviewed and negative - EENT EENT: REPORTS: Sore Throat - RESPIRATORY Respiratory: REPORTS: Coughing - REPRODUCTIVE Reproductive: DENIES: : Past Medical History - Social History Smoking Status: Never Smoker Chew tobacco use (# tins/day): No Frequency of alcohol use: None Drug Abuse: None Family History: Arthritis, CAD, COPD, CVA, DM, Hyperlipidemia, Hypertension, Thyroid Disfunction Patient has suicidal ideation: No Patient has homicidal ideation: No - Past Medical History Cardiac Medical History: Reports: Hx Hypertension Renal/ Medical History: Denies: Hx Peritoneal Dialysis Past Surgical History: Reports: Hx Appendectomy, Hx Orthopedic Surgery - L Knee , Hx Tubal Ligation - Immunizations Immunizations up to date: Yes Hx Diphtheria, Pertussis, Tetanus Vaccination: Yes Vertical Provider Document - CONSTITUTIONAL Agree With Documented VS: Yes Notes: PHYSICAL EXAMINATION: GENERAL: Well-appearing, well-nourished and in no acute distress. A&Ox4. Answers questions appropriately. Moves comfortably w/o notable distress HEAD: Atraumatic, normocephalic. EYES: Pupils equal round and reactive to light, extraocular movements intact, sclera anicteric, conjunctiva are normal. ENT: EAC clear b/l. TM's intact b/l without erythema, fluid, or perforation. Nares patent and with clear discharge. oropharynx mild erythema without exudates. 1+ tonsilar hypertrophy without erythema or exudate. No palatine shift. Uvula midline. No tongue protrusion. No drooling, hoarseness, or airway compromise. Moist mucous membranes. No sinus tenderness. NECK: Normal range of motion, supple without lymphadenopathy. No rigidity/ meningismus. LUNGS: Breath sounds clear to auscultation bilaterally and equal. No wheezes rales or rhonchi. No retractions HEART: Regular rate and rhythm without murmurs, rubs, gallops. ABDOMEN: Soft, nontender, nondistended abdomen. No guarding, no rebound. No masses appreciated. Normal bowel sounds present. No CVA tenderness bilaterally. No hepatosplenomegaly. NEUROLOGICAL: Normal speech, normal gait. PSYCH: Normal mood, normal affect. SKIN: Warm, Dry, normal turgor, no rashes or lesions noted. - INFECTION CONTROL TRAVEL OUTSIDE OF THE [place] IN LAST 30 DAYS: No Course - Re-evaluation Re-evalutation: 08/01/17 19:14 Patient is an afebrile, well-hydrated, 32-year-old female who presents to the ED with an acute URI, suspect viral. Vitals are acceptable. PE is otherwise unremarkable. Rapid strep was negative with throat culture pending. Patient has no significant tachycardia, tachypnea, or hypoxia. She is nontoxic- appearing. She is tolerating p.o. without difficulties. No other labs or imaging warranted at this time based on H&P. Low suspicion for any meningitis, sepsis, peritonsillar/pharyngeal abscess, respiratory compromise, Addison's, or other emergent systemic condition at this time. Patient is aware this condition can change from initial presentation and she needs to monitor symptoms closely. Conservative measures otherwise for symptoms. Recheck with your PCM in 2-3 days. Return to the ED with any worsening/concerning symptoms otherwise as reviewed in discharge. Patient is in agreement. - Vital Signs Vital signs: Temp Pulse Resp BP Pulse Ox 98.9 F 93 16 149/101 H 98 08/01/17 18:33 08/01/17 18:33 08/01/17 18:33 08/01/17 18:33 08/01/17 18:33 Discharge - Discharge Clinical Impression: Acute URI Condition: Stable Disposition: HOME, SELF-CARE Instructions: Upper Respiratory Illness ([facility]) Additional Instructions: Maintain adequate fluid intake Take meds as directed tylenol/ibuprofen as needed over the counter cold medication as needed for symptoms Humidified air may help Wash your hands regularly Wear a mask when coughing F/u: with your PCM in 3-5 days for a recheck Return to the ED with any fever, worsening pain, chest pain, palpitations, syncope, worsening GIVENS, neck pain/stiffness, shortness of breath, wheezing, drooling, trouble swallowing/breathing, abdominal pain, n/v/d, rash, or worsening/concerning symptoms otherwise. Forms: Elevated Blood Pressure Referrals: TOMMY BLAKE DO [ASSOCIATE] - Follow up as needed
== END 2017-08-01 19:17 | disposition home or self-care (01) ==
LOC: ER 18:26
DX: J06.9 Acute upper respiratory infection, unspecified (principal); I10 Essential (primary) hypertension; Z98.51 Tubal ligation status
CPT/HCPCS: 87070; 87880; 99283

== ENCOUNTER 2017-10-06 18:23 | Observation (INO) | payer SELFPAY ==
[2017-10-06] MEDS ORDERED: HYDROCODONE/ACETAMINOPHEN 5-325 MG TABLET PO ONE (18:49)
[2017-10-06] MEDS ORDERED: KETOROLAC TROMETHAMINE 60 MG/2 ML SDV IM ONE (18:49)
--- NOTE | 2017-10-06 18:53 | ER Document Report ---
ED Medical Screen (RME) - General Chief Complaint: Chest Pain Stated Complaint: CHEST PAIN Time Seen by Provider: 10/06/17 18:48 Notes: 32 years old female presents today with left-sided chest pain with morbid obesity. Since this morning. No fever chills cough. Centered around the left parasternal region, nonradiating not associated with any left arm numbness tingling sensation nausea vomiting palpitation or diaphoresis. Sharp chest wall tenderness noted on palpation. TRAVEL OUTSIDE OF THE [place] IN LAST 30 DAYS: No - Related Data Allergies/Adverse Reactions: No Known Allergies Allergy (Verified 02/01/17 18:59) Past Medical History - Past Medical History Cardiac Medical History: Reports: Hx Hypertension Renal/ Medical History: Denies: Hx Peritoneal Dialysis Past Surgical History: Reports: Hx Appendectomy, Hx Orthopedic Surgery - L Knee , Hx Tubal Ligation - Immunizations Immunizations up to date: Yes Hx Diphtheria, Pertussis, Tetanus Vaccination: Yes
[2017-10-06] MEDS ORDERED: ONDANSETRON 4 MG TAB.RAPDIS PO ONE (20:33)
--- NOTE | 2017-10-06 20:33 | ER Document Report ---
ED General - General Chief Complaint: Chest Pain Stated Complaint: CHEST PAIN Time Seen by Provider: 10/06/17 18:48 Notes: Patient is a 32-year-old male that comes emergency department for chief complaint of pain across the center to left side of her chest, she states symptoms started at 6 AM this morning, she states that during the day it is worsened, then she became nauseated, she vomited once. She still reports some nausea. She denies dizziness or passing out, shortness of breath, flank pain. When asked the location of her pain she points to the upper abdominal area. She denies history of the same. She denies any daily medications. Past medical history of tubal ligation denies any other medical history. She denies smoking, alcohol, or recreational drugs. No family history of early cardiac disease. TRAVEL OUTSIDE OF THE [place] IN LAST 30 DAYS: No - Related Data Allergies/Adverse Reactions: No Known Allergies Allergy (Verified 02/01/17 18:59) Past Medical History - General Information source: Patient - Social History Smoking Status: Never Smoker Frequency of alcohol use: Occasional Drug Abuse: None Lives with: Family Family History: Arthritis, CAD, COPD, CVA, DM, Hyperlipidemia, Hypertension, Thyroid Disfunction Patient has suicidal ideation: No Patient has homicidal ideation: No - Past Medical History Cardiac Medical History: Reports: Hx Hypertension Renal/ Medical History: Denies: Hx Peritoneal Dialysis Past Surgical History: Reports: Hx Appendectomy, Hx Orthopedic Surgery - L Knee , Hx Tubal Ligation - Immunizations Immunizations up to date: Yes Hx Diphtheria, Pertussis, Tetanus Vaccination: Yes Review of Systems - Review of Systems Constitutional: No symptoms reported EENT: No symptoms reported Cardiovascular: See HPI Respiratory: No symptoms reported Gastrointestinal: See HPI Genitourinary: No symptoms reported Female Genitourinary: No symptoms reported Musculoskeletal: No symptoms reported Skin: No symptoms reported Hematologic/Lymphatic: No symptoms reported Neurological/Psychological: No symptoms reported Physical Exam - Vital signs Vitals: Resp Pulse Ox 16 100 10/06/17 20:47 10/06/17 20:47 - Notes Notes: GENERAL: Alert, interacts well. No acute distress. Morbidly obese. HEAD: Normocephalic, atraumatic. EYES: Pupils equal, round, and reactive to light. Extraocular movements intact. ENT: Oral mucosa moist, tongue midline. NECK: Full range of motion. Supple. Trachea midline. LUNGS: Clear to auscultation bilaterally, no wheezes, rales, or rhonchi. No respiratory distress. HEART: Regular rate and rhythm. No murmur ABDOMEN: Tender with positive Shah sign in the right upper quadrant, tender in the epigastric area, remaining abdomen is soft and benign. EXTREMITIES: Moves all 4 extremities spontaneously. No edema, normal radial and dorsalis pedis pulses bilaterally. No cyanosis. BACK: no cervical, thoracic, lumbar midline tenderness. No saddle anesthesia, normal distal neurovascular exam. NEUROLOGICAL: Alert and oriented x3. Normal speech. [cranial nerves II through XII grossly intact]. PSYCH: Normal affect, normal mood. SKIN: Warm, dry, normal turgor. No rashes or lesions noted. Course - Re-evaluation Re-evalutation: Patient does not appear to be in distress, she indicates the epigastric area as her source of pain, chest x-ray, EKG, troponin without evidence of cardiac abnormality, patient is only 32 years old and denies recreational drug abuse. CBC shows leukocytosis at 17.9 thousand, elevated neutrophils but no bandemia. CMP including lipase generally unremarkable. Urinalysis unremarkable. Ultrasound performed shows cholelithiasis without cholecystitis. Patient has received pain medication and Toradol, on reevaluation she is still very tender in the right upper quadrant. With her developing symptoms, vomiting, leukocytosis, cholelithiasis, and persistent pain I am concerned she may be developing cholecystitis. Discussed with patient, will discuss with surgeon for possible admission to the hospital and possible cholecystectomy. Discussed with Dr. Miller, evaluated the patient bedside, he will admit the patient to the hospital. - Vital Signs Vital signs: Temp Pulse Resp BP Pulse Ox 98.4 F 17 132/86 H 100 10/07/17 02:20 10/06/17 20:49 10/06/17 20:49 10/06/17 20:49 - Laboratory Result Diagrams: 10/06/17 19:45 10/06/17 19:45 Laboratory results interpreted by me: 10/06/17 10/06/17 10/06/17 19:45 19:45 21:55 WBC 17.9 H RDW 14.4 H Seg Neutrophils % 83.1 H Lymphocytes % 12.0 L Absolute Neutrophils 14.9 H Total Protein 8.9 H Urine Ketones TRACE H Ur Leukocyte Esterase TRACE H Discharge - Discharge Clinical Impression: RUQ pain Cholelithiasis Qualifiers: Cholelithiasis location: gallbladder Cholecystitis presence: without cholecystitis Biliary obstruction: without biliary obstruction Qualified Code(s) : K80.20 - Calculus of gallbladder without cholecystitis without obstruction Vomiting Qualifiers: Vomiting type: unspecified Vomiting Intractability: non-intractable Nausea presence: with nausea Qualified Code(s): R11.2 - Nausea with vomiting, unspecified Leukocytosis Qualifiers: Leukocytosis type: unspecified Qualified Code(s): D72.829 - Elevated white blood cell count, unspecified Condition: Stable Disposition: ADMITTED OBSERVATION Admitting Provider: Surgicalist Unit Admitted: Surgical Floor
[2017-10-06 20:44] LABS: ABSOLUTE LYMPHOCYTES (AUTO) 2.1 10^3/uL (0.5-4.7); ABSOLUTE MONOCYTES (AUTO) 0.8 10^3/uL (0.1-1.4); ABSOLUTE NEUT (AUTO) 14.9 10^3/uL (1.7-8.2); BASOPHILS % (AUTO) 0.3 % (0-2); EOSINOPHILS % (AUTO) 0.1 % (0-6); HEMATOCRIT 41.3 % (36.0-47.0); HEMOGLOBIN 13.9 g/dL (12.0-15.5); MEAN CORPUSCULAR HEMOGLOBIN 30.1 pg (27.0-33.4); MEAN CORPUSCULAR HGB CONC 33.6 g/dL (32.0-36.0); MEAN CORPUSCULAR VOLUME 90 fl (80-97); MONOCYTES % (AUTO) 4.5 % (3-13); PLATELET COUNT 373 10^3/uL (150-450); RED CELL DISTRIBUTION WIDTH 14.4 % (11.5-14.0); SEGMENTED NEUTROPHILS % (AUTO) 83.1 % (42-78); TOTAL CELLS COUNTED % (AUTO) 100 %; WHITE BLOOD COUNT 17.9 10^3/uL (4.0-10.5)
--- NOTE | 2017-10-06 20:58 | RADIOLOGY REPORT (SQ) ---
EXAM DESCRIPTION: CHEST SINGLE VIEW COMPLETED DATE/TIME: 10/06/2017 8:41 pm REASON FOR STUDY: chest pain COMPARISON: None. EXAM PARAMETERS: NUMBER OF VIEWS: One view. TECHNIQUE: Single frontal radiographic view of the chest acquired. RADIATION DOSE: NA LIMITATIONS: None. FINDINGS: LUNGS AND PLEURA: No opacities, masses or pneumothorax. No pleural effusion. MEDIASTINUM AND HILAR STRUCTURES: No masses. Contour normal. HEART AND VASCULAR STRUCTURES: Heart normal in size. Normal vasculature. BONES: No acute findings. HARDWARE: None in the chest. OTHER: No other significant finding. IMPRESSION: NO ACUTE RADIOGRAPHIC FINDING IN THE CHEST. TECHNICAL DOCUMENTATION: JOB ID: [id number] [employer]- All Rights Reserved Reading location - IP/workstation name: [email or web address]
[2017-10-06 21:31] LABS: ALANINE AMINOTRANSFERASE 28 U/L (9-52); ALBUMIN 4.5 g/dL (3.5-5.0); ALKALINE PHOSPHATASE 100 U/L (38-126); ANION GAP 13 (5-19); ASPARTATE AMINO TRANSFERASE 21 U/L (14-36); BILIRUBIN,DIRECT 0.2 mg/dL (0.0-0.4); BILIRUBIN,TOTAL 0.2 mg/dL (0.2-1.3); BLOOD UREA NITROGEN 12 mg/dL (7-20); CALCIUM 9.9 mg/dL (8.4-10.2); CARBON DIOXIDE 24 mmol/L (22-30); CHLORIDE 103 mmol/L (98-107); GLUCOSE 102 mg/dL (75-110); POTASSIUM 4.3 mmol/L (3.6-5.0); SODIUM 140.3 mmol/L (137-145); TOTAL PROTEIN 8.9 g/dL (6.3-8.2)
[2017-10-06 22:19] LABS: APPEARANCE,URINE SLIGHTLY-CLOUDY; BILIRUBIN,URINE NEGATIVE (NEGATIVE); COLOR,URINE YELLOW; GLUCOSE, URINE NEGATIVE (NEGATIVE); KETONES,URINE TRACE mg/dL (NEGATIVE); LEUKOCYTE ESTERASE,URINE TRACE (NEGATIVE); NITRITE,URINE NEGATIVE (NEGATIVE); PROTEIN,URINE NEGATIVE (NEGATIVE); URINE SPECIFIC GRAVITY 1.026; UROBILINOGEN,URINE NEGATIVE mg/dL (<2.0)
[2017-10-07] MEDS ORDERED: MORPHINE SULFATE 10 MG/ML INJ IV ONE (00:31)
[2017-10-07] MEDS ORDERED: NORMAL SALINE 1000 ML 1,000 ML IV ONE (00:31)
--- NOTE | 2017-10-07 00:47 | RADIOLOGY REPORT (SQ) ---
EXAM DESCRIPTION: US ABDOMEN LIMITED COMPLETED DATE/TME: 10/06/2017 22:21 CLINICAL HISTORY: 32 years Female, RUQ and epigastric pain, vomiting Comparison: None. LIMITATIONS: Bowel gas artifact. FINDINGS: Cholelithiasis, negative sonographic Shah's test, liver, a 0.5 -cm diameter common bile duct, no intrahepatic ductal dilation, -cm right kidney, pancreas, visualized vasculature/abdominal aorta, and no significant ascites appear otherwise unremarkable. IMPRESSION: No acute findings. Cholelithiasis. Obscured pancreas.
[2017-10-07] MEDS ORDERED: PIPERACILLIN/TAZOBACTAM 3.375 GM VIAL IV ONE ×2 (00:59→05:03)
[2017-10-07] MEDS ORDERED: NORMAL SALINE 1000 ML 1,000 ML IV PRN (00:59)
--- NOTE | 2017-10-07 01:49 | PDOC H&P ---
History of Present Illness Admission Date/PCP: 10/07/17 01:10 Patient complains of: abdominal pains History of Present Illness: TRAVIS BASS is a 32 year old female who had a bowl of cereal with milk for breakfast yesterday at 6 am. This was immediately followed by mild chest pains. She was able to go to work but then pains more at the RUQ. She got home from work at 5 pm and the pains in the RUQ got worse and associated with nausea and vomiting. She then went to ED where an ultrasound of the gallbladder showed stones. Her troponin level was normal though she still have a mild anterior chest pains. Her pains in the RUQ was worse. Her WBC is 17,000. Past Medical History Cardiac Medical History: Reports: Hypertension Endocrine Medical History: Reports: Obesity Past Surgical History Past Surgical History: Reports: Appendectomy, Orthopedic Surgery - L Knee, Tubal Ligation Social History Smoking Status: Unknown if Ever Smoked Frequency of Alcohol Use: None Family History Family History: Arthritis, CAD, COPD, CVA, DM, Hyperlipidemia, Hypertension, Thyroid Disfunction Parental Family History Reviewed: Yes - father has DM Children Family History Reviewed: No Sibling(s) Family History Reviewed.: Yes - brother has DM Medication/Allergy Home Medications: Tramadol HCl/Acetaminophen [Ultracet 37.5 mg/325 mg Tablet] 1 each PO Q6 #20 tablet 01/06/16 Diphenhydramine HCl [Benadryl] 25 mg PO Q6 PRN #30 capsule 03/07/16 Metoclopramide HCl [Reglan 10 mg Tablet] 1 tab PO ASDIR PRN #25 tablet 03/07/16 Ibuprofen 600 mg PO Q6HP PRN #20 tablet 04/03/16 Lisinopril 10 mg PO DAILY #30 tablet 05/17/16 Hydrocodone/Acetaminophen [[place] 7.5-325 mg Tablet] 1 tab PO Q4 #15 tablet 02/01 Methocarbamol [Robaxin 500 mg Tablet] 500 mg PO BID #20 tablet 02/01/17 Methylprednisolone [Medrol Dosepack (4 mg/Tab) 21 Tab/Dosepak] 4 mg PO ASDIR PRN #21 tab.ds.pk 02/01/17 Allergies/Adverse Reactions: No Known Allergies Allergy (Verified 02/01/17 18:59) Review of Systems Constitutional: PRESENT: other - no fever/chills Eyes: PRESENT: other - no visual/hearing changes Cardiovascular: PRESENT: chest pain Respiratory: PRESENT: other - no cough Gastrointestinal: PRESENT: abdominal pain, nausea, vomiting Genitourinary: PRESENT: other - no dysuria Musculoskeletal: PRESENT: back pain Neurological: PRESENT: other - had some lightheadedness prior to going to ED Hematologic/Lymphatic: PRESENT: other - no easy bruising Physical Exam Vital Signs: Temp Pulse Resp BP Pulse Ox 17 132/86 H 100 10/06/17 20:49 10/06/17 20:49 10/06/17 20:49 General appearance: PRESENT: mild distress Head exam: PRESENT: atraumatic Eye exam: PRESENT: conjunctiva pink Mouth exam: PRESENT: moist Neck exam: PRESENT: full ROM Respiratory exam: PRESENT: clear to auscultation quyen Cardiovascular exam: PRESENT: RRR Pulses: PRESENT: normal radial pulses Vascular exam: PRESENT: normal capillary refill GI/Abdominal exam: PRESENT: soft, tenderness - RUQ Rectal exam: PRESENT: deferred Extremities exam: PRESENT: full ROM Musculoskeletal exam: PRESENT: ambulatory Neurological exam: PRESENT: alert, oriented to person, oriented to place, oriented to time, oriented to situation Psychiatric exam: PRESENT: appropriate affect Skin exam: PRESENT: normal color, warm Results Impressions: Chest X-Ray 10/06/17 20:28 IMPRESSION: NO ACUTE RADIOGRAPHIC FINDING IN THE CHEST. Abdomen Ultrasound 10/06/17 22:21 IMPRESSION: No acute findings. Cholelithiasis. Obscured pancreas. Assessment & Plan - Diagnosis (1) Acute cholecystitis Is this a current diagnosis for this admission?: Yes - Time Time Spent: 30 to 50 Minutes - Inpatient Certification Medical Necessity: Need For IV Fluids, Need for Pain Control, Need for IV Antibiotics, Need for Surgery - Plan Summary Plan Summary: Keep NPO Hydrate Start IV antibiotics Zosyn For possible Lap Yulisa by Dr Long
[2017-10-07] MEDS ORDERED: GLUCAGON,HUMAN RECOMB 1 MG INJ SUBCUT PRN (01:50)
[2017-10-07] MEDS ORDERED: DEXTROSE 40% GEL 15 GM TUBE PO PRN ×2 (01:50)
[2017-10-07] MEDS ORDERED: ONDANSETRON HCL INJ/PF 4 MG/2 ML SDV IV PRN (01:50)
[2017-10-07] MEDS ORDERED: DEXTROSE 50%-WATER 25 GM/50 ML DISP.SYRIN IV PRN ×2 (01:50)
[2017-10-07] MEDS: NORMAL SALINE 1000 ML 1,000 ML IV PRN ×2 (03:55→10:31)
[2017-10-07] MEDS: PIPERACILLIN/TAZOBACTAM 3.375 GM VIAL IV SCH ×2 (05:23→13:35)
--- NOTE | 2017-10-07 07:16 | EKG REPORT ---
SEVERITY:- NORMAL ECG - SINUS RHYTHM : Confirmed by: Eusebio Chu MD 07-Oct-2017 07:16:12
[2017-10-07] MEDS: HYDROMORPHONE HCL INJ/PF 2 MG/ML AMPULE IV PRN (08:08)
[2017-10-07] MEDS ORDERED: ROCURONIUM BROMIDE INJ 50 MG/5 ML VIAL IV ONE (09:35)
[2017-10-07] MEDS ORDERED: SUCCINYLCHOLINE CHLORIDE INJ 200 MG/10 ML VIAL ONE (09:35)
[2017-10-07] MEDS ORDERED: NEOSTIGMINE METHYLSULFATE 10 MG/10 ML VIAL ONE (09:35)
[2017-10-07] MEDS ORDERED: GLYCOPYRROLATE 1 MG/5 ML SYRINGE ONE (09:35)
--- NOTE | 2017-10-07 11:25 | Progress Note ---
Provider Note Provider Note: This is a patient with acute cholecystitis. I have offered the patient cholecystectomy as definitive treatment. Risks and benefits of surgery were discussed at length. Informed consent was obtained, and all questions were answered.
[2017-10-07] MEDS: PIPERACILLIN SODIUM/TAZOBACTAM 3.375 GM in NORMAL SALINE 100 ML IV SCH ×2 (15:00→21:45)
[2017-10-07] MEDS ORDERED: FENTANYL CITRATE INJ/PF 100 MCG/2 ML AMPUL ONE ×2 (16:10)
[2017-10-07] MEDS ORDERED: HYDROMORPHONE HCL INJ/PF 2 MG/ML AMPULE ONE (16:11)
[2017-10-07] MEDS ORDERED: MIDAZOLAM 2 MG/2 ML INJ ONE (16:11)
[2017-10-07] MEDS ORDERED: PROPOFOL INJ 200 MG/20 ML VIAL IV ONE (16:11)
[2017-10-07] MEDS ORDERED: ONDANSETRON HCL INJ/PF 4 MG/2 ML SDV ONE (16:11)
[2017-10-07] MEDS ORDERED: LIDOCAINE 1% INJ-PF (10 MG/ML) 30 ML SDV ONE (16:32)
[2017-10-07] MEDS ORDERED: BUPIVACAINE HCL 0.5 % INJ/PF 30 ML SDV ONE (16:32)
[2017-10-07] MEDS ORDERED: MEPERIDINE HCL/PF INJ 25 MG/1 ML DISP.SYRIN IV PRN (16:54)
[2017-10-07] MEDS ORDERED: PROMETHAZINE HCL INJ 25 MG/1 ML VIAL IV PRN (16:54)
[2017-10-07] MEDS ORDERED: DIPHENHYDRAMINE HCL 50 MG/ML VIAL IV PRN (16:54)
[2017-10-07] MEDS ORDERED: FENTANYL CITRATE INJ/PF 100 MCG/2 ML AMPUL IV PRN ×3 (16:54)
[2017-10-07] MEDS ORDERED: KETOROLAC TROMETHAMINE INJ/PF 30 MG/1 ML SDV ONE (18:39)
[2017-10-07] MEDS ORDERED: KETOROLAC TROMETHAMINE INJ/PF 30 MG/1 ML SDV INJ ONE (19:00)
--- NOTE | 2017-10-07 19:02 | Operative Report ---
Nonrecallable Operative Report DATE OF SURGERY: 10/07/17 PREOPERATIVE DIAGNOSIS: Acute cholecystitis POSTOPERATIVE DIAGNOSIS: 1. Acute cholecystitis. 2. Gallbladder hydrops OPERATION: Laparoscopic fenestrated subtotal cholecystectomy. SURGEON: JOSEPH GORDILLO ANESTHESIA: GA TISSUE REMOVED OR ALTERED: Gallbladder COMPLICATIONS: None apparent ESTIMATED BLOOD LOSS: 150 cc PROCEDURE: Drains/implants: 15 Maltese round Ayush drain in the gallbladder fossa. Procedure in detail: After informed consent was obtained, the patient was laid in the supine position in the operating room. The area of the abdomen was prepped and draped in a normal sterile fashion. A supraumbilical incision was created with a 15 blade scalpel. Dissection was carried down through the subcutaneous tissue using sharp and blunt dissection. The cicatrix was identified, grasped with a Alice clamp, and retracted upwards. The linea alba fascia was incised sharply. The abdomen was entered sharply. The balloon trocar was inserted, and pneumoperitoneum was achieved. A subxiphoid 5 mm port was placed under direct laparoscopic visualization. 2 more 5 mm ports were placed in the right upper quadrant in similar fashion. Atraumatic graspers were placed through the 5 mm ports. The gallbladder was tense and distended. There was active inflammation surrounding the entire gallbladder. The gallbladder was retracted cephalad with some difficulty. Due to the tense and distended nature of the gallbladder a cyst aspiration needle was used to suction hydropic bile from within the gallbladder. The gallbladder was then easier to manipulate. The dense inflammatory reaction extended from the top of the gallbladder down to the infundibulum. Dissection was begun in and around the infundibulum. Tissue was cleared away from the infundibulum using sharp and blunt dissection. The cystic duct and cystic artery could not be positively identified due to the excessive amount of inflammation. Once this was realized, it was felt prudent to free the gallbladder from the liver and perform subtotal cholecystectomy. The gallbladder was freed from the liver using a mixture of sharp dissection, blunt dissection, and electrocautery. Once this was completed, the dissection was taken as far down the infundibulum as was felt safe. The gallbladder was then amputated. The mucosa was cauterized. The gallbladder was placed into an Endo Catch bag and pulled out through the umbilicus. Several stones were spilled in the abdomen, these were removed with laparoscopic graspers. The abdomen was then copiously irrigated and suctioned until the effluent was clear. A 15 Maltese round Ayush drain was then placed into the gallbladder fossa and sutured into place. The abdomen was inspected, and found to be free of any other obvious abnormality. The 5 mm trochars were removed under direct laparoscopic visualization. The 12 mm trocar was removed, and pneumoperitoneum was relieved. The supraumbilical fascia was closed using 0 Vicryl suture in [id number] fashion. The overlying skin was closed using 4-0 Vicryl Rapide suture in subcuticular fashion. All sponge, instrument, and needle counts were correct 2. Condition: Stable.
[2017-10-07] MEDS ORDERED: HYDROCODONE/ACETAMINOPHEN 10-325 MG TABLET PO PRN (19:26)
[2017-10-08] MEDS: PIPERACILLIN SODIUM/TAZOBACTAM 3.375 GM in NORMAL SALINE 100 ML IV SCH ×2 (02:00→08:26)
[2017-10-08] MEDS: HYDROMORPHONE HCL INJ/PF 2 MG/ML AMPULE IV PRN (06:24)
[2017-10-08 11:29] VITALS: BP 121/62
--- NOTE | 2017-10-08 11:34 | PDOC DISCHARGE SUMMARY ---
General - Admit/Disc Date/PCP Admission Date/Primary Care Provider: 10/07/17 01:10 Discharge Date: 10/08/17 - Discharge Diagnosis (1) Gallbladder hydrops Is this a current diagnosis for this admission?: Yes (2) Acute cholecystitis Is this a current diagnosis for this admission?: Yes - Additional Information Resuscitation Status: Full Code Discharge Diet: As Tolerated Discharge Activity: No Lifting Over 10 Pounds Home Medications: No Home Medications 10/07/17 History of Present Illness History of Present Illness: TRAVIS BASS is a 32 year old female with acute cholecystitis. She was admitted to the hospital, started on intravenous antibiotics, and scheduled for surgery. Hospital Course Hospital Course: The patient was taken to the operating room on 10/07/2017 for laparoscopic cholecystectomy. There was a severe inflammatory reaction, and the patient underwent laparoscopic subtotal fenestrated cholecystectomy. A drain was left in place. The patient was taken to the floor, where she improved significantly. The patient began ambulating, tolerating a diet, and by 2017 she was medically fit for discharge. Physical Exam Vital Signs: Temp Pulse Resp BP Pulse Ox 98.2 F 80 18 121/62 95 10/08/17 11:23 10/08/17 11:23 10/08/17 11:23 10/08/17 11:23 10/08/17 11:23 Intake & Output 10/07/17 10/08/17 10/09/17 06:59 06:59 06:59 Intake Total 1000 5110 340 Output Total 1560 50 Balance 1000 3550 290 Weight 137.8 kg 138.1 kg Results Impressions: Chest X-Ray 10/06/17 20:28 IMPRESSION: NO ACUTE RADIOGRAPHIC FINDING IN THE CHEST. Abdomen Ultrasound 10/06/17 22:21 IMPRESSION: No acute findings. Cholelithiasis. Obscured pancreas. Qualifiers - * PATIENT BEING DISCHARGED WITH ANY OF THE FOLLOWING DIAGNOSIS: No Plan Discharge Plan: Discharge home. Diet as tolerated. Activity: No lifting greater than 10 pounds 2 weeks. Record LAKESHIA output daily. Follow-up in my office in 7-10 days. Okay to shower. No tub baths or swimming 2 weeks. Nogal 10/325 mg p.o. every 6 hours as needed pain. Time Spent: Less than 30 Minutes
== END 2017-10-08 11:53 | disposition home or self-care (01) ==
LOC: ER 18:23 → EH 10-07 01:10 → 2S 10-07 03:28
PROVIDERS: ATTEND Surgery
PROC: 0FT44ZZ Resection of Gallbladder, Percutaneous Endoscopic Approach (ICD-10-PCS; principal; 2017-10-07 13:45)
DX: K82.1 Hydrops of gallbladder (principal); K80.12 Calculus of gallbladder with acute and chronic cholecystitis without obstruction; R07.89 Other chest pain; I10 Essential (primary) hypertension; R42 Dizziness and giddiness; M54.9 Dorsalgia, unspecified; E66.01 Morbid (severe) obesity due to excess calories; Z90.49 Acquired absence of other specified parts of digestive tract; Z98.51 Tubal ligation status; Z82.49 Family history of ischemic heart disease and other diseases of the circulatory system; Z68.43 Body mass index [BMI] 50.0-59.9, adult
CPT/HCPCS: 93005; 99285; 96372; 96375; 96365; 36415; 83690; 84703; 85025; 80053; 81001; 84484; 88304 ×2; 71045; 76705; 93010; 47562; G0378 ×2; J2250; J3490 ×4; J1885 ×2; S0119; J3010; J2270; J1170 ×2; J0330; J2405; J7030; J2704; J2543 ×2; 790

== ENCOUNTER 2017-12-16 13:26 | Observation (INO) | payer SELFPAY ==
[2017-12-16] MEDS ORDERED: METOCLOPRAMIDE HCL INJ/PF 10 MG/2 ML SDV IV ONE (14:38)
[2017-12-16] MEDS ORDERED: DIPHENHYDRAMINE HCL 50 MG CAPSULE PO ONE (14:38)
[2017-12-16] MEDS ORDERED: NORMAL SALINE 1000 ML 1,000 ML IV ONE (14:38)
--- NOTE | 2017-12-16 15:02 | RADIOLOGY REPORT (SQ) ---
EXAM DESCRIPTION: CHEST SINGLE VIEW COMPLETED DATE/TIME: 12/16/2017 2:51 pm REASON FOR STUDY: headache COMPARISON: 10/06/2017 EXAM PARAMETERS: NUMBER OF VIEWS: One view. TECHNIQUE: Single frontal radiographic view of the chest acquired. RADIATION DOSE: NA LIMITATIONS: None. FINDINGS: LUNGS AND PLEURA: No opacities, masses or pneumothorax. No pleural effusion. MEDIASTINUM AND HILAR STRUCTURES: No masses. Contour normal. HEART AND VASCULAR STRUCTURES: Heart normal in size. Normal vasculature. BONES: No acute findings. HARDWARE: None in the chest. OTHER: No other significant finding. IMPRESSION: NO ACUTE RADIOGRAPHIC FINDING IN THE CHEST. TECHNICAL DOCUMENTATION: JOB ID: [id number] [employer]- All Rights Reserved Reading location - IP/workstation name: [email or web address]
--- NOTE | 2017-12-16 15:03 | RADIOLOGY REPORT (SQ) ---
EXAM DESCRIPTION: CT HEAD WITHOUT COMPLETED DATE/TIME: 12/16/2017 2:49 pm REASON FOR STUDY: headache COMPARISON: CT brain 03/07/2016. TECHNIQUE: Axial images acquired through the brain without intravenous contrast. Images reviewed wi th bone, brain and subdural windows. Images stored on PACS. All CT scanners at this facility use dose modulation, iterative reconstruction, and/or weight based d osing when appropriate to reduce radiation dose to as low as reasonably achievable (ALARA). [facility]: Dose Right [facility]: CareDose [facility]: Dose Right [facility]: Teradose 4D [facility]: Smart Fitmoo RADIATION DOSE: CT Rad equipment meets quality standard of care and radiation dose reduction techniq ues were employed. CTDIvol: 53.2 mGy. DLP: 964 mGy-cm. mGy. LIMITATIONS: None. FINDINGS: VENTRICLES: Normal size and contour. CEREBRUM: No mass effect. No hemorrhage. No midline shift. Normal jones/white matter differentiatio n. No evidence for acute territorial infarction. CEREBELLUM: No mass effect. No hemorrhage. No alteration of density. No evidence for acute infarct ion. EXTRAAXIAL SPACES: No fluid collections. ORBITS AND GLOBE: Symmetrical contour of the globes. CALVARIUM: No depressed skull fracture. PARANASAL SINUSES: No air-fluid level. SOFT TISSUES: No hematoma. OTHER: Incidental note is made of an enlarged fluid-filled pituitary fossa. IMPRESSION: 1. No acute intracranial hemorrhage or acute territorial infarct. 2. Enlarged fluid-filled pituitary fossa, most consistent with an empty sella. This can be seen with intracranial hypertension, clinical correlation recommended. EVIDENCE OF ACUTE STROKE: NO. COMMENT: Quality ID # [id number]: Final reports with documentation of one or more dose reduction techniques (e.g., Automated exposure control, adjustment of the mA and/or kV according to patient size, use of iterative reconstruction technique) TECHNICAL DOCUMENTATION: JOB ID: [id number] [employer]- All Rights Reserved Reading location - IP/workstation name: [email or web address]
--- NOTE | 2017-12-16 15:37 | ER Document Report ---
ED General - General Chief Complaint: Headache Stated Complaint: WEAKNESS Time Seen by Provider: 12/16/17 14:16 TRAVEL OUTSIDE OF THE [place] IN LAST 30 DAYS: No - HPI Notes: Patient is a 32-year-old female that presents to the emergency department for chief complaint of headache and syncope. Patient reports left-sided throbbing headache for the last 4 days. It was gradual in onset. She denies aggravating or relieving factors. She has tried Tylenol at home with no relief. Patient reports feeling lightheaded with standing and ambulating. She states she has had multiple syncopal episodes over the last few days. The most recent one was today. She states she stood up to walk in the other room and felt lightheaded and then completely lost consciousness hitting her head on the floor. There was no postictal state or seizure activity witnessed. Past Medical History: Negative Past Surgical History: Left knee surgery, appendectomy, tubal ligation, cholecystectomy Social History: Denies drugs alcohol and tobacco Family History: Reviewed and noncontributory for presenting illness Allergies: Reviewed, see documented allergy list. REVIEW OF SYSTEMS: CONSTITUTIONAL : No fever No chills No diaphoresis No recent illness EENT: No vision changes No congestion No sore throat CARDIOVASCULAR: Syncope No chest pain No palpitations RESPIRATORY: No shortness of breath No cough No difficulty breathing GASTROINTESTINAL: No abdominal pain No nausea No vomiting No diarrhea GENITOURINARY: No dysuria No hematuria No difficulty urinating MUSCULOSKELETAL: No back pain No leg pain No arm pain SKIN: No rashes No lesions LYMPHATIC: No swollen, enlarged glands. NEUROLOGICAL: No lightheadedness No headache No weakness No paresthesias PSYCHIATRIC: No anxiety No depression PHYSICAL EXAMINATION: Vital signs reviewed, nursing noted reviewed. GENERAL: Well-appearing, well-nourished and in no acute distress. HEAD: Atraumatic, normocephalic. EYES: Eyes appear normal, extraocular movements intact, sclera anicteric, conjunctiva are normal. ENT: nares patent, oropharynx clear without exudates. Moist mucous membranes. NECK: Normal range of motion, supple without lymphadenopathy LUNGS: Breath sounds clear to auscultation bilaterally and equal. No wheezes rales or rhonchi. HEART: Regular rate and rhythm without murmurs ABDOMEN: Soft, nontender, normoactive bowel sounds. No rebound, guarding, or rigidity. No masses appreciated. EXTREMITIES: Nontender, good range of motion, no pitting or edema. NEUROLOGICAL: No focal neurological deficits. Moves all extremities spontaneously Motor and sensory grossly intact on exam. PSYCH: Normal mood, normal affect. SKIN: Warm, Dry, normal turgor, no rashes or lesions noted on exposed skin - Related Data Allergies/Adverse Reactions: No Known Allergies Allergy (Verified 02/01/17 18:59) Past Medical History - Social History Smoking Status: Never Smoker Family History: Arthritis, CAD, COPD, CVA, DM, Hyperlipidemia, Hypertension, Thyroid Disfunction - Past Medical History Cardiac Medical History: Reports: Hx Hypertension Renal/ Medical History: Denies: Hx Peritoneal Dialysis Past Surgical History: Reports: Hx Appendectomy, Hx Orthopedic Surgery - L Knee , Hx Tubal Ligation - Immunizations Immunizations up to date: Yes Hx Diphtheria, Pertussis, Tetanus Vaccination: Yes Review of Systems - Review of Systems Notes: Negative Physical Exam - Vital signs Vitals: Temp Pulse Resp BP Pulse Ox 98.3 F 77 20 143/97 H 97 12/16/17 13:37 12/16/17 13:37 12/16/17 13:37 12/16/17 13:37 12/16/17 13:37 - Notes Notes: Dictated Course - Re-evaluation Re-evalutation: 12/16/17 16:04 Vitals reviewed. Nursing notes reviewed. EKG showed no dysrhythmia or ectopy. Patient placed on telemetry monitoring. She was ordered IV hydration Reglan and Benadryl for her headache. CT brain shows no intracranial hemorrhage. She does have empty sella syndrome. 12/16/17 17:11 Patient reevaluated and did have some improvement of her headache. She is remained hemodynamically stable. CT brain results were discussed with Dr. Archer, neurology at [facility]. He does not feel any further workup for pseudotumor cerebri is indicated as an inpatient. He does not feel it is related to her syncopal event today. He recommends outpatient ophthalmology follow-up and lumbar puncture if headache continues. The remainder of patient's lab work is unremarkable. She is orthostatic negative. She will be admitted to the hospital for observation and telemetry monitoring because of her syncopal events. Case discussed with Dr. Odell who has accepted admission. Laboratory 1012/16/17 12/16/17 16:15 16:15 16:15 WBC 9.6 RBC 4.26 Hgb 12.8 Hct 38.2 MCV 90 MCH 30.0 MCHC 33.5 RDW 14.6 H Plt Count 293 Seg Neutrophils % 74.6 Lymphocytes % 17.6 Monocytes % 6.3 Eosinophils % 1.1 Basophils % 0.4 Absolute Neutrophils 7.2 Absolute Lymphocytes 1.7 Absolute Monocytes 0.6 Absolute Eosinophils 0.1 Absolute Basophils 0.0 Sodium 142.0 Potassium 4.1 Chloride 104 Carbon Dioxide 30 Anion Gap 8 BUN 12 Creatinine 0.66 Est GFR ( Amer) > 60 Est GFR (Non-Af Amer) > 60 Glucose 103 Calcium 9.1 Total Bilirubin 0.4 Direct Bilirubin 0.2 Neonat Total Bilirubin Not Reportable Neonat Direct Bilirubin Not Reportable Neonat Indirect Bili Not Reportable AST 39 H ALT 26 Alkaline Phosphatase 92 Troponin I < 0.012 Total Protein 7.5 Albumin 3.7 Chest X-Ray 12/16/17 14:38 IMPRESSION: NO ACUTE RADIOGRAPHIC FINDING IN THE CHEST. Head CT 12/16/17 14:38 IMPRESSION: 1. No acute intracranial hemorrhage or acute territorial infarct. 2. Enlarged fluid-filled pituitary fossa, most consistent with an empty sella. This can be seen with intracranial hypertension, clinical correlation recommended. EVIDENCE OF ACUTE STROKE: NO. - Vital Signs Vital signs: Temp Pulse Resp BP Pulse Ox 98.3 F 79 20 151/95 H 97 12/16/17 13:37 12/16/17 15:18 12/16/17 13:37 12/16/17 15:18 12/16/17 13:37 - Laboratory Result Diagrams: 12/16/17 16:15 12/16/17 16:15 Laboratory results interpreted by me: 12/16/17 12/16/17 16:15 16:15 RDW 14.6 H AST 39 H - EKG Interpretation by Me Additional EKG results interpreted by me: 12/16/17 15:30 Interpreted by myself 1501: Normal sinus rhythm, rate 78, normal axis, no ectopy, inferior Q waves Discharge - Discharge Clinical Impression: Empty sella syndrome Syncope Qualifiers: Syncope type: unspecified Qualified Code(s): R55 - Syncope and collapse Headache Qualifiers: Headache type: unspecified Headache chronicity pattern: acute headache Intractability: not intractable Qualified Code(s): R51 - Headache Condition: Stable Disposition: ADMITTED OBSERVATION Admitting Provider: Hospitalist Unit Admitted: Telemetry
[2017-12-16] MEDS ORDERED: KETOROLAC TROMETHAMINE INJ/PF 30 MG/1 ML SDV IV ONE (16:04)
[2017-12-16 16:36] LABS: ABSOLUTE EOSINOPHILS # (AUTO) 0.1 10^3/uL (0.0-0.6); ABSOLUTE LYMPHOCYTES (AUTO) 1.7 10^3/uL (0.5-4.7); ABSOLUTE MONOCYTES (AUTO) 0.6 10^3/uL (0.1-1.4); ABSOLUTE NEUT (AUTO) 7.2 10^3/uL (1.7-8.2); BASOPHILS % (AUTO) 0.4 % (0-2); EOSINOPHILS % (AUTO) 1.1 % (0-6); HEMATOCRIT 38.2 % (36.0-47.0); HEMOGLOBIN 12.8 g/dL (12.0-15.5); LYMPHOCYTES % (AUTO) 17.6 % (13-45); MEAN CORPUSCULAR HGB CONC 33.5 g/dL (32.0-36.0); MEAN CORPUSCULAR VOLUME 90 fl (80-97); MONOCYTES % (AUTO) 6.3 % (3-13); PLATELET COUNT 293 10^3/uL (150-450); RED BLOOD COUNT 4.26 10^6/uL (3.72-5.28); RED CELL DISTRIBUTION WIDTH 14.6 % (11.5-14.0); SEGMENTED NEUTROPHILS % (AUTO) 74.6 % (42-78); TOTAL CELLS COUNTED % (AUTO) 100 %; WHITE BLOOD COUNT 9.6 10^3/uL (4.0-10.5)
[2017-12-16 16:56] LABS: ALANINE AMINOTRANSFERASE 26 U/L (9-52); ALBUMIN 3.7 g/dL (3.5-5.0); ALKALINE PHOSPHATASE 92 U/L (38-126); ANION GAP 8 (5-19); ASPARTATE AMINO TRANSFERASE 39 U/L (14-36); BILIRUBIN,DIRECT 0.2 mg/dL (0.0-0.4); BILIRUBIN,TOTAL 0.4 mg/dL (0.2-1.3); BLOOD UREA NITROGEN 12 mg/dL (7-20); CALCIUM 9.1 mg/dL (8.4-10.2); CARBON DIOXIDE 30 mmol/L (22-30); CHLORIDE 104 mmol/L (98-107); GLUCOSE 103 mg/dL (75-110); POTASSIUM 4.1 mmol/L (3.6-5.0); TOTAL PROTEIN 7.5 g/dL (6.3-8.2)
--- NOTE | 2017-12-16 18:48 | PDOC H&P ---
History of Present Illness Admission Date/PCP: 12/16/17 17:11 Patient complains of: syncope History of Present Illness: TRAVIS BASS is a 32 year old obese female who denies having previous medical comorbidities who presented with syncope. Patient says she had 4 syncopal episodes in the past 4 days. She says that on Monday night, she was showering when she felt light headed, had blurring of vision, felt weak and passed out. Her fiance says she was down for 10 minutes but did not have any seizure-like activity, urinary or bowel incontinence or post episode confusion on all these episodes. She had her 2nd and 3rd episode on morning and last night where she had similar symptoms while on her way to the bathroom and was again found unconscious by the boyfriend. Around noon time today, patient's niece called patient's fiance that she passed out again in the living room. Patient does complain of frontal headache, sharp 4/10 occasionally radiating to the occipital region in the past 3-4 days. She denies any fever, chills, cough, chest pain or SOB. In the ER, orthostatic vital signs were negative. CT of the head showed an empty sella suggestive of intracranial hypertension to which Dr. Hemphill has discussed with Dr. Archer ([facility] neurology) who recommended outpatient work-up including LP for above findings. Past Medical History Cardiac Medical History: Reports: Hypertension Past Surgical History Past Surgical History: Reports: Appendectomy, Cholecystectomy - 10/07/17, Orthopedic Surgery - L Knee, Tubal Ligation Social History Smoking Status: Never Smoker Frequency of Alcohol Use: None Hx Recreational Drug Use: No Drugs: None Hx Prescription Drug Abuse: No Family History Family History: Arthritis, CAD, COPD, CVA, DM, Hyperlipidemia, Hypertension, Thyroid Disfunction Parental Family History Reviewed: Yes - dad had KS at 45 Children Family History Reviewed: No Sibling(s) Family History Reviewed.: No Medication/Allergy Home Medications: No Home Medications 10/07/17 Allergies/Adverse Reactions: No Known Allergies Allergy (Verified 02/01/17 18:59) Review of Systems All systems: reviewed and no additional remarkable complaints except as stated - as mentioned in HPI Physical Exam Vital Signs: Temp Pulse Resp BP Pulse Ox 98.3 F 79 20 151/95 H 97 12/16/17 13:37 12/16/17 15:18 12/16/17 13:37 12/16/17 15:18 12/16/17 13:37 Intake & Output 12/15/17 12/16/17 12/17/17 06:59 06:59 06:59 Intake Total 1000 Balance 1000 General appearance: PRESENT: no acute distress, obese Head exam: PRESENT: atraumatic, normocephalic Eye exam: PRESENT: conjunctiva pink, EOMI, PERRLA. ABSENT: scleral icterus Ear exam: PRESENT: normal external ear exam Mouth exam: PRESENT: moist, tongue midline Neck exam: ABSENT: carotid bruit, JVD, lymphadenopathy, thyromegaly Respiratory exam: PRESENT: clear to auscultation quyen. ABSENT: rales, rhonchi, wheezes Cardiovascular exam: PRESENT: RRR. ABSENT: diastolic murmur, rubs, systolic murmur Pulses: PRESENT: normal dorsalis pedis pul GI/Abdominal exam: PRESENT: normal bowel sounds, soft. ABSENT: distended, guarding, mass, organolmegaly, rebound, tenderness Rectal exam: PRESENT: deferred Neurological exam: PRESENT: alert, awake, oriented to person, oriented to place , oriented to time, oriented to situation, CN II-XII grossly intact. ABSENT: motor sensory deficit Results Impressions: Chest X-Ray 12/16/17 14:38 IMPRESSION: NO ACUTE RADIOGRAPHIC FINDING IN THE CHEST. Head CT 12/16/17 14:38 IMPRESSION: 1. No acute intracranial hemorrhage or acute territorial infarct. 2. Enlarged fluid-filled pituitary fossa, most consistent with an empty sella. This can be seen with intracranial hypertension, clinical correlation recommended. EVIDENCE OF ACUTE STROKE: NO. Assessment & Plan - Diagnosis (1) Syncope Qualifiers: Syncope type: unspecified Qualified Code(s): R55 - Syncope and collapse Is this a current diagnosis for this admission?: Yes Plan: Will keep on tele overnight. Carotid US, echo ordered. Patient also snores a lot at night and may have underlying undiagnosed sleep apnea which can also cause syncope in severe MACHELLE. She will need outpatient sleep study as well. (2) Empty sella syndrome Is this a current diagnosis for this admission?: Yes Plan: She denies history of massive bleeding. Will check a TSH and AM cortisol to further reassess pituitary function
[2017-12-16] MEDS: HEPARIN SOD (PORCINE) 5,000 UNIT/ML 1 ML SYRINGE SUBCUT SCH (21:05)
--- NOTE | 2017-12-16 22:03 | EKG REPORT ---
SEVERITY:- BORDERLINE ECG - SINUS RHYTHM INFERIOR Q WAVES, PROBABLY NORMAL VARIATION : Confirmed by: Iris Sena 16-Dec-2017 22:01:44
--- NOTE | 2017-12-16 22:20 | PDOC CONSULTATION ---
Consultation Consult Date: 12/16/17 Attending physician:: DAYAMI PEPE Consult reason:: Syncope History of Present Illness Admission Date/PCP: 12/16/17 17:11 Patient complains of: syncope History of Present Illness: TRAVIS BASS is a 32 year old female who denies having previous medical comorbidities who presented with syncope. Patient says she had 4 syncopal episodes in the past 4 days. She says that on Monday night, she was showering when she felt light headed, had blurring of vision, felt weak and passed out. Her fiance says she was down for 10 minutes but did not have any seizure-like activity, urinary or bowel incontinence or post episode confusion on all these episodes. She had her 2nd and 3rd episode on morning and last night where she had similar symptoms while on her way to the bathroom and was again found unconscious by the boyfriend. Around noon time today, patient's niece called patient's fiance that she passed out again in the living room. Patient does complain of frontal headache, sharp 4/10 occasionally radiating to the occipital region in the past 3-4 days. She denies any fever, chills, cough, chest pain or SOB. In the ER, orthostatic vital signs were negative. CT of the head showed an empty sella suggestive of intracranial hypertension to which Dr. Hemphill has discussed with Dr. Archer ([facility] neurology) who recommended outpatient work-up including LP for above findings. This history obtained by the hospitalist was reviewed with the patient. Patient fianc also in the room. It seems all this episodes happened while she is up and about and standing. No seizure activity noted. No loss of bladder or bowel activity noted. Patient does give history of snoring, difficulty falling asleep and staying asleep, significant daytime fatigue and sleepiness. Past Medical History Cardiac Medical History: Reports: Hypertension Past Surgical History Past Surgical History: Reports: Appendectomy, Cholecystectomy - 10/07/17, Orthopedic Surgery - L Knee, Tubal Ligation Social History Information Source: Patient Smoking Status: Never Smoker Frequency of Alcohol Use: None Hx Recreational Drug Use: No Drugs: None Hx Prescription Drug Abuse: No - Advance Directive Resuscitation Status: Full Code Family History Family History: Arthritis, CAD, COPD, CVA, DM, Hyperlipidemia, Hypertension, Thyroid Disfunction Parental Family History Reviewed: Yes Children Family History Reviewed: Yes Sibling(s) Family History Reviewed.: Yes Medication/Allergy Home Medications: Acetaminophen [Tylenol 325 mg Tablet] 650 mg PO Q6HP PRN tablet 12/17/17 Acetazolamide [Diamox 250 mg Tab] 250 mg PO DAILY #30 tablet 12/17/17 Propranolol HCl [Inderal 10 mg Tablet] 10 mg PO Q12 #60 tablet 12/17/17 Allergies/Adverse Reactions: No Known Allergies Allergy (Verified 02/01/17 18:59) Review of Systems Review of Systems: Please see history of present illness and past medical history as wall. Constitutional: No fever or chills reported. Fatigue and tiredness as well as daytime sleepiness reported. Head : Positive for chronic headaches. Eyes: No recent eye pain, diplopia, redness, discharge, acute visual changes. Ears: No recent chronic ear pain, acute hearing loss, ear discharge. Oral cavity: No recent ulcerations, bleeding, oral cavity discomfort. Neck: No recent acute neck pain reported. Hematologic: No recent easy bruising or bleeding. Lymphatic: No recent lymph node enlargement reported. Cardiovascular system review: See history of present illness. Respiratory system review: No hemoptysis or blood clots in the lungs reported. Mild Shortness of breath on exertion Gastrointestinal system review: Negative for any recent acute hematemesis, melena. Genitourinary system review: No recent acute or chronic hematuria, flank pain, UTI etc. reported. Skin system review: Negative for any recent abnormal bruising, no rash, no pruritus reported. Neurologic: No prior history of strokes, mini strokes, seizure disorder. Psychologic: No history of major psychosis or major depression reported. Musculoskeletal: Minor aches and pains reported. No acute joint swelling reported. Endocrine: No recent polyuria, polydipsia, recent heat or cold intolerance. Physical Exam Vital Signs: Temp Pulse Resp BP Pulse Ox 98.3 F 79 21 H 140/89 H 98 12/16/17 18:50 12/16/17 15:18 12/16/17 19:08 12/16/17 19:08 12/16/17 19:08 Intake & Output 12/15/17 12/16/17 12/17/17 06:59 06:59 06:59 Intake Total 1000 Balance 1000 Exam: GENERAL: well-nourished and in no acute distress. Alert and oriented x3 HEAD: Atraumatic, normocephalic. EYES: CARRIE, sclera anicteric, conjunctiva are normal. ENT: Moist mucous membranes. No oral ulcerations or bleeding gums noted. No obvious ear, nose or throat abnormalities noted. NECK: supple without lymphadenopathy. Trachea is central. No cervical or axillary lymphadenopathy noted. Carotids are 2+, JVD WNL. Mallampati class IV. LUNGS: Breath sounds clear bilaterally. No wheezes rales or rhonchi noted. No significant dullness noted on percussion. CHEST: Palpation of the chest wall shows no significant chest wall tenderness. HEART: [employer], No PSH, 1/6 AGUSTIN aortic area, 1/6 bedolla systolic murmur mitral area, no rubs, no gallops. ABDOMEN: Soft, no significant tenderness appreciated, normoactive bowel sounds. No guarding, no rebound. No rigidity noted . No masses appreciated. EXTREMITIES: Pedal pulses are 1-2+, no calf tenderness noted. No clubbing or cyanosis. negative pedal edema noted NEUROLOGICAL: Focused neurological exam showed no significant neurologic deficit. Normal speech, no focal weakness appreciated. PSYCH: Normal mood, normal affect. Judgment and insight within normal limits. SKIN: No significant ecchymosis, skin is noted to be warm. MUSCULOSKELETAL EXAM: No significant acute joint swelling noted. Results EKG Comments: Sinus rhythm, no acute ST-T wave changes are noted Impressions: Chest X-Ray 12/16/17 14:38 IMPRESSION: NO ACUTE RADIOGRAPHIC FINDING IN THE CHEST. Head CT 12/16/17 14:38 IMPRESSION: 1. No acute intracranial hemorrhage or acute territorial infarct. 2. Enlarged fluid-filled pituitary fossa, most consistent with an empty sella. This can be seen with intracranial hypertension, clinical correlation recommended. EVIDENCE OF ACUTE STROKE: NO. Assessment & Plan - Diagnosis (1) Headache Qualifiers: Headache type: unspecified Headache chronicity pattern: acute headache Intractability: not intractable Qualified Code(s): R51 - Headache Is this a current diagnosis for this admission?: Yes (2) Syncope Qualifiers: Syncope type: unspecified Qualified Code(s): R55 - Syncope and collapse Is this a current diagnosis for this admission?: Yes (3) Obesity Qualifiers: Obesity type: unspecified obesity type Obesity classification: adult class 3 (BMI >= 40) Serious obesity comorbidity presence: unspecified whether serious comorbidity present Is this a current diagnosis for this admission?: Yes (4) Empty sella syndrome Is this a current diagnosis for this admission?: Yes (5) Sleep disorder Is this a current diagnosis for this admission?: Yes - Notes Notes: Rec 2 D Echo, pvc monitor, Tilt table study, Video EEG Orthostatic BPs Syncope: The cause is undetermined at this time. Most likely vasovagal/ neurocardiogenic however there are multiple differential diagnosis. This includes cardiac arrhythmia in this patient's age group (SVT, paroxysmal A. fib) , hypotension secondary to orthostasis, seizure disorder, hypoglycemia et cetera. Both remy and tachyarrhythmias are possible. Patient will benefit from cardiac monitoring during this admission. May need to consider outpatient cardiac monitoring using mobile cardiac personnel monitor if clinically indicated. Headaches: Chronic. Could be related to sleep apnea syndrome, which can cause benign intracranial hypertension. Empty sella syndrome: Noted on CT scan. To be evaluated by neurologist. Possibly could be a complication of sleep apnea syndrome due to benign intracranial hypertension caused by both obesity and sleep apnea syndrome. Obesity: Patient will benefit from gradual weight loss. Sleep disorder: Sleep apnea is strongly suspected. Patient has difficulty falling asleep, staying asleep, daytime fatigue and sleepiness. This was discussed with the patient. Patient will benefit from scheduling a sleep study. In view of patient having syncopal spell, narcolepsy with cataplexy is in the differential diagnosis - Time Time Spent: 30 to 50 Minutes - CODE STATUS was discussed, patient remains full code. Surrogate decision-maker unchanged. Multiple medical problems were addressed. More than 50% of the time spent coordinating care, discussing management plans with involved caregivers. Management plans discussed with involved personnels. Medical decision making was of moderate to high complexity , patient's has multiple comorbidities. Medications reviewed and adjusted accordingly: Yes
[2017-12-17] MEDS ORDERED: ACETAMINOPHEN 325 MG TABLET PO PRN (09:19)
[2017-12-17] MEDS ORDERED: BUTALB/ACETAMINOPHEN/CAFFEINE 1 TAB EACH PO PRN (09:19)
[2017-12-17] MEDS ORDERED: PROPRANOLOL HCL 20 MG TABLET PO SCH (10:00)
[2017-12-17] MEDS ORDERED: FUROSEMIDE 20 MG TABLET PO SCH (10:00)
[2017-12-17] MEDS ORDERED: ACETAZOLAMIDE 250 MG TABLET PO SCH (10:00)
[2017-12-17] MEDS ORDERED: PROPRANOLOL HCL 10 MG TABLET PO SCH (10:00)
--- NOTE | 2017-12-17 10:04 | EKG REPORT ---
SEVERITY:- NORMAL ECG - SINUS RHYTHM : Confirmed by: Iris Sena 17-Dec-2017 10:03:03
[2017-12-17] MEDS: HEPARIN SOD (PORCINE) 5,000 UNIT/ML 1 ML SYRINGE SUBCUT SCH (10:31)
--- NOTE | 2017-12-17 11:16 | XCELERA REPORT ---
[address] [address] Transthoracic Echocardiogram Report Name: TRAVIS BASS Age: 32 yrs Gender: Female : 1985 Patient Status: Inpatient Patient Location: [address] [place] [address] Study Date: 12/17/2017 08:52 AM Height: 67 in Weight: 296 lb BSA: 2.4 m2 Procedure: A complete two-dimensional transthoracic echocardiogram was performed (2D, M-mode, spectral and color flow Doppler). The study was technically adequate with some images being suboptimal in quality. Reason For Study: syncope Ordering Physician: DAYAMI PEPE Performed By: Darlyn Estrada Interpretation Summary The left ventricular ejection fraction is within normal limits. There is mild to moderate concentric left ventricular hypertrophy. Doppler measurements suggest pseudonormalized left ventricular relaxation, which is associated with grade II/IV or mild to moderate diastolic dysfunction The left ventricle is grossly normal size. Not all wall segments were well visualized. The right ventricular systolic function is normal. Borderline left atrial enlargement. The right atrium is normal in size There is a trace amount of mitral regurgitation There is no mitral valve stenosis. No aortic regurgitation is present. There is no aortic valve stenosis No tricuspid regurgitation. There is no tricuspid stenosis. The aortic root is not well visualized but is probably normal size. The inferior vena cava appeared normal and decreased > 50% with respiration (RAP 5-10 mmHg) There is no pericardial effusion. MMode/2D Measurements & Calculations RVDd: 1.3 cm LVIDd: 5.5 cm FS: 23.6 % LA dimension: 3.6 cm IVSd: 0.84 cm LVIDs: 4.2 cm EDV(Teich): 146.2 ml LVPWd: 1.2 cm ESV(Teich): 77.9 ml EF(Teich): 46.7 % Doppler Measurements & Calculations MV E max sreekanth: MV P1/2t max sreekanth: Ao V2 max: LV V1 max P.7 cm/sec 143.3 cm/sec 114.0 cm/sec 4.1 mmHg MV A max sreekanth: MV P1/2t: 57.9 msec Ao max PG: LV V1 max: 78.5 cm/sec MVA(P1/2t): 3.8 cm2 5.2 mmHg 101.7 cm/sec MV E/A: 1.3 MV dec slope: 725.3 cm/sec2 MV dec time: 0.21 sec PA V2 max: MV P1/2t-pr_phl: 119.0 cm/sec 57.9 msec PA max P.7 mmHg Left Ventricle The left ventricle is grossly normal size. There is mild to moderate concentric left ventricular hypertrophy. The left ventricular ejection fraction is within normal limits. Doppler measurements suggest pseudonormalized left ventricular relaxation, which is associated with grade II/IV or mild to moderate diastolic dysfunction. Not all wall segments were well visualized. Right Ventricle The right ventricle is grossly normal size. There is normal right ventricular wall thickness. The right ventricular systolic function is normal. Atria The right atrium is normal in size. Borderline left atrial enlargement. Interarterial septum not well visualized and not well dopplered. Cannot comment on ASD/PFO presence. Mitral Valve The mitral valve is grossly normal. There is no mitral valve stenosis. There is a trace amount of mitral regurgitation. Aortic Valve The aortic valve opens well. The aortic valve is not well visualized secondary to technical limitations. There is no aortic valve stenosis. No aortic regurgitation is present. Tricuspid Valve The tricuspid valve is not well visualized secondary to technical limitations. There is no tricuspid stenosis. No tricuspid regurgitation. Pulmonic Valve The pulmonic valve is not well visualized. Great Vessels The aortic root is not well visualized but is probably normal size. The inferior vena cava appeared normal and decreased > 50% with respiration (RAP 5-10 mmHg). Effusions There is no pericardial effusion. : DAYAMI PEPE > Iris Sena
--- NOTE | 2017-12-17 11:24 | RADIOLOGY REPORT (SQ) ---
EXAM DESCRIPTION: CAROTID DOPPLER COMPLETED DATE/TIME: 12/17/2017 10:29 am REASON FOR STUDY: syncope COMPARISON: None. TECHNIQUE: Grayscale ultrasound, Doppler velocity and spectra, and color Doppler images acquired of the extra-cranial carotid and vertebral arteries. Images stored on PACS. LIMITATIONS: None. FINDINGS: RIGHT CAROTID CCA Velocities: Within normal limits. ICA Velocities Peak systolic 1.10 m/s. End diastolic 0.40 m/s. Proximal ICA/CCA peak systolic ratio 0.9. Spectra normal. No significant plaque. LEFT CAROTID CCA Velocities: Within normal limits. ICA Velocities Peak systolic 0.90 m/s. End diastolic 0.30 m/s. Proximal ICA/CCA peak systolic ratio 1.0. Spectra normal. No significant plaque. VERTEBRAL ARTERIES: Antegrade flow. Normal waveforms. SUBCLAVIAN ARTERIES: No finding. OTHER: No other significant finding. IMPRESSION: NO HEMODYNAMICALLY SIGNIFICANT STENOSIS. COMMENT: Quality ID #[id number]: Velocity criteria are extrapolated from the diameter data as defined by t he Society of Radiologists in Ultrasound Consensus Conference. Radiology 2003: 229; 340-346. TECHNICAL DOCUMENTATION: JOB ID: [id number] [employer]- All Rights Reserved Reading location - IP/workstation name: [email or web address]
[2017-12-17 13:38] VITALS: BP 132/70
--- NOTE | 2017-12-17 13:48 | PDOC DISCHARGE SUMMARY ---
General - Admit/Disc Date/PCP Admission Date/Primary Care Provider: 12/16/17 17:11 Discharge Date: 12/17/17 - Discharge Diagnosis (1) Syncope Is this a current diagnosis for this admission?: Yes (2) Empty sella syndrome Is this a current diagnosis for this admission?: Yes - Additional Information Resuscitation Status: Full Code Prescriptions: Acetazolamide [Diamox 250 mg Tab] 250 mg PO DAILY #30 tablet Propranolol HCl [Inderal 10 mg Tablet] 10 mg PO Q12 #60 tablet Home Medications: Acetaminophen [Tylenol 325 mg Tablet] 650 mg PO Q6HP PRN tablet 12/17/17 Acetazolamide [Diamox 250 mg Tab] 250 mg PO DAILY #30 tablet 12/17/17 Propranolol HCl [Inderal 10 mg Tablet] 10 mg PO Q12 #60 tablet 12/17/17 History of Present Illness History of Present Illness: TRAVIS BASS is a 32 year old obese female who denies having previous medical comorbidities who presented with syncope. Patient says she had 4 syncopal episodes in the past 4 days. She says that on Monday night, she was showering when she felt light headed, had blurring of vision, felt weak and passed out. Her fiance says she was down for 10 minutes but did not have any seizure-like activity, urinary or bowel incontinence or post episode confusion on all these episodes. She had her 2nd and 3rd episode on morning and last night where she had similar symptoms while on her way to the bathroom and was again found unconscious by the boyfriend. Around noon time today, patient's niece called patient's fiance that she passed out again in the living room. Patient does complain of frontal headache, sharp 4/10 occasionally radiating to the occipital region in the past 3-4 days. She denies any fever, chills, cough, chest pain or SOB. In the ER, orthostatic vital signs were negative. CT of the head showed an empty sella suggestive of intracranial hypertension to which Dr. Hemphill has discussed with Dr. Archer ([facility] neurology) who recommended outpatient work-up including LP for above findings. Hospital Course Hospital Course: Patient was observed overnight. Tele monitoring was unremarkable. Carotid US and echo were also unremarkable. Orthostatic vital signs q6 were also negative for orthostasis. Upon further questioning, it seems more of patient is complaining of headache and dizziness causing her falls. Her head CT did show an empty sella concerning for intracranial hypertension. Patient does have risk factors to develop idiopathic intracranial hypertension, being female, obese and childbearing age. Her case has been initially discussed with neurology at [facility] who will see her for further work-up including outpatient LP. Her blood pressures here were running in the 140-150/80s. Patient was started on propranolol and acetazolamide which did relieve her headaches. She was given the details for the neurology headache clinic at [facility] to make an appointment with them this week. She will also need outpatient ophthalmology evaluation. A bedside fundoscopy done by this provider was unremarkable. She was also seen by Dr. Sena who has recommended sleep study testing when she follows up with him outpatient. Physical Exam Vital Signs: Temp Pulse Resp BP Pulse Ox 98.1 F 80 17 140/92 H 97 12/17/17 12:02 12/17/17 12:02 12/17/17 12:02 12/17/17 12:02 12/17/17 12:02 Pulse Oximeter Nocturnal Start: 12/16/17 18: 26 Freq: RTQ4 Status: Complete Document 12/17/17 04:00 LRO (Rec: 12/17/17 05:41 LRO [email or web address]) Nocturnal Pulse Oximetry Equipment Usage Equipment in Use Oxygen Delivery Method (includes room Room Air air) O2 Sat by Pulse Oximetry (92-100) 98 Continuous SpO2 Machine # 8 Intake & Output 12/16/17 12/17/17 12/18/17 06:59 06:59 06:59 Intake Total 1780 Output Total 400 Balance 1380 Weight 295 lb 13.765 oz General appearance: PRESENT: no acute distress, well-developed, well-nourished Head exam: PRESENT: atraumatic, normocephalic Eye exam: PRESENT: conjunctiva pink, EOMI, PERRLA. ABSENT: scleral icterus Ear exam: PRESENT: normal external ear exam Mouth exam: PRESENT: moist, tongue midline Neck exam: ABSENT: carotid bruit, JVD, lymphadenopathy, thyromegaly Respiratory exam: PRESENT: clear to auscultation quyen. ABSENT: rales, rhonchi, wheezes Cardiovascular exam: PRESENT: RRR. ABSENT: diastolic murmur, rubs, systolic murmur Pulses: PRESENT: normal dorsalis pedis pul GI/Abdominal exam: PRESENT: normal bowel sounds, soft. ABSENT: distended, guarding, mass, organolmegaly, rebound, tenderness Rectal exam: PRESENT: deferred Extremities exam: PRESENT: full ROM. ABSENT: calf tenderness, clubbing, pedal edema Neurological exam: PRESENT: alert, awake, oriented to person, oriented to place , oriented to time, oriented to situation, CN II-XII grossly intact. ABSENT: motor sensory deficit Results Impressions: Chest X-Ray 12/16/17 14:38 IMPRESSION: NO ACUTE RADIOGRAPHIC FINDING IN THE CHEST. Head CT 12/16/17 14:38 IMPRESSION: 1. No acute intracranial hemorrhage or acute territorial infarct. 2. Enlarged fluid-filled pituitary fossa, most consistent with an empty sella. This can be seen with intracranial hypertension, clinical correlation recommended. EVIDENCE OF ACUTE STROKE: NO. Carotid Doppler Study 12/17/17 00:00 IMPRESSION: NO HEMODYNAMICALLY SIGNIFICANT STENOSIS. Qualifiers - * PATIENT BEING DISCHARGED WITH ANY OF THE FOLLOWING DIAGNOSIS: No
--- NOTE | 2017-12-17 20:05 | PDOC PROGRESS REPORT ---
Subjective Progress Note for:: 12/17/17 Subjective:: Patient seems to be doing better with no further syncopal spell. Pt is denying any chest arm or neck discomfort. Patient denying any PND, orthopnea. Patient denied any sustained palpitations, dizziness, syncope, near syncope. Patient denying any fever chills. Patient denying any other significant discomfort. Patient is maintaining sinus rhythm. 2D echo results were reviewed with the patient. Review of systems: Rest review of systems negative. Medications: Medications have been reviewed. Reason For Visit: SYNCOPE Physical Exam Vital Signs: Temp Pulse Resp BP Pulse Ox 98.1 F 80 17 132/70 H 97 12/17/17 13:33 12/17/17 13:33 12/17/17 13:33 12/17/17 13:33 12/17/17 13:33 Pulse Oximeter Nocturnal Start: 12/16/17 18: 26 Freq: RTQ4 Status: Complete Document 12/17/17 04:00 LRO (Rec: 12/17/17 05:41 LRO [email or web address]) Nocturnal Pulse Oximetry Equipment Usage Equipment in Use Oxygen Delivery Method (includes room Room Air air) O2 Sat by Pulse Oximetry (92-100) 98 Continuous SpO2 Machine # 8 Intake & Output 12/16/17 12/17/17 12/18/17 06:59 06:59 06:59 Intake Total 1780 606 Output Total 400 525 Balance 1380 81 Weight 134.2 kg Exam: GENERAL: well-nourished and in no acute distress. Alert and oriented x3 HEAD: Atraumatic, normocephalic. EYES: CARRIE, sclera anicteric, conjunctiva are normal. ENT: Moist mucous membranes. No oral ulcerations or bleeding gums noted. No obvious ear, nose or throat abnormalities noted. NECK: supple without lymphadenopathy. Trachea is central. No cervical or axillary lymphadenopathy noted. Carotids are 2+, JVD WNL LUNGS: Breath sounds clear bilaterally. No wheezes rales or rhonchi noted. No significant dullness noted on percussion. CHEST: Palpation of the chest wall shows no significant chest wall tenderness. HEART: [place] ELECTROLOGIST, No PSH, 1/6 AGUSTIN aortic area, 1/6 bed[place] systolic murmur mitral area, no rubs, no gallops. ABDOMEN: Soft, no significant tenderness appreciated, normoactive bowel sounds. No guarding, no rebound. No rigidity noted . No masses appreciated. EXTREMITIES: Pedal pulses are 1-2+, no calf tenderness noted. No clubbing or cyanosis. negative pedal edema noted NEUROLOGICAL: Focused neurological exam showed no significant neurologic deficit. Normal speech, no focal weakness appreciated. PSYCH: Normal mood, normal affect. Judgment and insight within normal limits. SKIN: No significant ecchymosis, skin is noted to be warm. MUSCULOSKELETAL EXAM: No significant acute joint swelling noted. Results EKG Comments: Sinus rhythm, no acute ST-T wave changes are noted Impressions: Chest X-Ray 12/16/17 14:38 IMPRESSION: NO ACUTE RADIOGRAPHIC FINDING IN THE CHEST. Head CT 12/16/17 14:38 IMPRESSION: 1. No acute intracranial hemorrhage or acute territorial infarct. 2. Enlarged fluid-filled pituitary fossa, most consistent with an empty sella. This can be seen with intracranial hypertension, clinical correlation recommended. EVIDENCE OF ACUTE STROKE: NO. Carotid Doppler Study 12/17/17 00:00 IMPRESSION: NO HEMODYNAMICALLY SIGNIFICANT STENOSIS. Assessment & Plan - Diagnosis (1) Headache Qualifiers: Headache type: unspecified Headache chronicity pattern: acute headache Intractability: not intractable Qualified Code(s): R51 - Headache Is this a current diagnosis for this admission?: Yes (2) Syncope Qualifiers: Syncope type: unspecified Qualified Code(s): R55 - Syncope and collapse Is this a current diagnosis for this admission?: Yes (3) Obesity Qualifiers: Obesity type: unspecified obesity type Obesity classification: adult class 3 (BMI >= 40) Serious obesity comorbidity presence: unspecified whether serious comorbidity present Is this a current diagnosis for this admission?: Yes (4) Empty sella syndrome Is this a current diagnosis for this admission?: Yes (5) Sleep disorder Is this a current diagnosis for this admission?: Yes - Notes Notes: 2D echo results were reviewed with the patient. Patient was encouraged to ambulate in the hallway. If she did fine without any syncope or near syncope, she could be discharged with close cardiology follow-up including event monitor , tilt table study etc. to be arranged as an outpatient through my office. Syncope: The cause is undetermined at this time. Most likely vasovagal/ neurocardiogenic however there are multiple differential diagnosis. This includes cardiac arrhythmia in this patient's age group (SVT, paroxysmal A. fib) , hypotension secondary to orthostasis, seizure disorder, hypoglycemia et cetera. Both remy and tachyarrhythmias are possible. Patient will benefit from cardiac monitoring during this admission. May need to consider outpatient cardiac monitoring using mobile cardiac amusement centre manager if clinically indicated. Headaches: Chronic. Could be related to sleep apnea syndrome, which can cause benign intracranial hypertension. Empty sella syndrome: Noted on CT scan. To be evaluated by neurologist. Possibly could be a complication of sleep apnea syndrome due to benign intracranial hypertension caused by both obesity and sleep apnea syndrome. Obesity: Patient will benefit from gradual weight loss. Sleep disorder: Sleep apnea is strongly suspected. Patient has difficulty falling asleep, staying asleep, daytime fatigue and sleepiness. This was discussed with the patient. Patient will benefit from scheduling a sleep study. In view of patient having syncopal spell, narcolepsy with cataplexy is in the differential diagnosis - Time Time with patient: Greater than 35 minutes - CODE STATUS was discussed, patient remains full code. Surrogate decision-maker unchanged. Multiple medical problems were addressed. More than 50% of the time spent coordinating care, discussing management plans with involved caregivers. Management plans discussed with involved personnels. Medical decision making was of moderate to high complexity, patient's has multiple comorbidities. Medications reviewed and adjusted accordingly: Yes
== END 2017-12-17 14:30 | disposition home or self-care (01) ==
LOC: ER 13:26 → EH 17:11 → 5 19:33
PROVIDERS: ADMIT Internal Medicine; ATTEND Internal Medicine
DX: R55 Syncope and collapse (principal); E23.6 Other disorders of pituitary gland; E66.9 Obesity, unspecified; R51 Headache; I10 Essential (primary) hypertension; R53.83 Other fatigue; G47.9 Sleep disorder, unspecified; R06.83 Snoring; Z90.49 Acquired absence of other specified parts of digestive tract; Z98.51 Tubal ligation status; Z82.49 Family history of ischemic heart disease and other diseases of the circulatory system; Z83.3 Family history of diabetes mellitus; Z82.3 Family history of stroke; Z83.49 Family history of other endocrine, nutritional and metabolic diseases; Z68.42 Body mass index [BMI] 45.0-49.9, adult
CPT/HCPCS: 93005 ×2; 99285; 96361; 96374; 96375; 36415 ×2; 84443; 84703; 85025; 80053; 84484; 82533; 93306; 93880; 71045; 70450; 93010 ×2; 94762; G0378 ×3; J3490 ×3; J1644; J1885; J2765; J7030

== ENCOUNTER 2018-02-13 18:13 | Emergency (ER) | payer SELFPAY ==
[2018-02-13 18:45] LABS: ABSOLUTE BASOPHILS # (AUTO) 0.1 10^3/uL (0.0-0.2); ABSOLUTE EOSINOPHILS # (AUTO) 0.2 10^3/uL (0.0-0.6); ABSOLUTE LYMPHOCYTES (AUTO) 2.8 10^3/uL (0.5-4.7); ABSOLUTE MONOCYTES (AUTO) 0.7 10^3/uL (0.1-1.4); ABSOLUTE NEUT (AUTO) 6.5 10^3/uL (1.7-8.2); BASOPHILS % (AUTO) 0.7 % (0-2); EOSINOPHILS % (AUTO) 1.5 % (0-6); HEMATOCRIT 38.9 % (36.0-47.0); LYMPHOCYTES % (AUTO) 26.9 % (13-45); MEAN CORPUSCULAR HEMOGLOBIN 30.1 pg (27.0-33.4); MEAN CORPUSCULAR HGB CONC 33.3 g/dL (32.0-36.0); MEAN CORPUSCULAR VOLUME 90 fl (80-97); MONOCYTES % (AUTO) 6.9 % (3-13); PLATELET COUNT 341 10^3/uL (150-450); RED BLOOD COUNT 4.31 10^6/uL (3.72-5.28); RED CELL DISTRIBUTION WIDTH 13.7 % (11.5-14.0); TOTAL CELLS COUNTED % (AUTO) 100 %; WHITE BLOOD COUNT 10.2 10^3/uL (4.0-10.5)
[2018-02-13] MEDS ORDERED: NORMAL SALINE 500 ML IV ONE (18:46)
[2018-02-13] MEDS ORDERED: LIDOCAINE 5% (700 MG) TRANSDERMAL ADH..PATCH TP ONE (18:46)
[2018-02-13] MEDS ORDERED: KETOROLAC TROMETHAMINE INJ/PF 30 MG/1 ML SDV IV ONE (18:46)
[2018-02-13 18:52] LABS: ALANINE AMINOTRANSFERASE 23 U/L (9-52); ALKALINE PHOSPHATASE 81 U/L (38-126); ANION GAP 7 (5-19); ASPARTATE AMINO TRANSFERASE 21 U/L (14-36); BILIRUBIN,DIRECT 0.2 mg/dL (0.0-0.4); BILIRUBIN,TOTAL 0.3 mg/dL (0.2-1.3); BLOOD UREA NITROGEN 18 mg/dL (7-20); CALCIUM 9.1 mg/dL (8.4-10.2); CARBON DIOXIDE 30 mmol/L (22-30); CHLORIDE 103 mmol/L (98-107); CREATINE KINASE 49 U/L (30-135); GLUCOSE 107 mg/dL (75-110); LIPASE 77.6 U/L (23-300); POTASSIUM 4.4 mmol/L (3.6-5.0); TOTAL PROTEIN 7.9 g/dL (6.3-8.2)
[2018-02-13] MEDS ORDERED: ONDANSETRON HCL INJ/PF 4 MG/2 ML SDV IV ONE (18:52)
--- NOTE | 2018-02-13 18:52 | ER Document Report ---
ED General - General Chief Complaint: Chest Pain Stated Complaint: CHEST PAIN Time Seen by Provider: 02/13/18 18:35 TRAVEL OUTSIDE OF THE [place] IN LAST 30 DAYS: No - HPI Patient complains to provider of: Chest pain Notes: Patient coming in with morbid obesity complaining of chest pain starting approximately 530 patient states she was resting lying in bed with chest pain started. Patient states pain does radiate into her left arm. Patient denies any previous episodes of this. Patient currently is on propranolol for an unknown reason. Patient upon my evaluation is moaning stating that movement does make the pain worse. Patient states last meal was around 10 or 11:00 this morning when she had turkey and mashed potatoes. Patient states she is feeling slightly nauseous. Patient otherwise denies any medical issues patient was recently seen here in the emergency room and admitted for syncopal episode and had a workup performed showing normal carotid Doppler CT scan showing an empty sella patient was to follow-up with Dr. Sena book sewer and neurosurgery at [facility] however states she is been unable to make those appointments currently working on getting a primary care physician. Otherwise patient denies any recent travel A brief review of the patient's medical records available in [employer] was performed - Related Data Allergies/Adverse Reactions: No Known Allergies Allergy (Verified 02/13/18 18:39) Past Medical History - Social History Smoking Status: Never Smoker Frequency of alcohol use: None Drug Abuse: None Family History: Arthritis, CAD, COPD, CVA, DM, Hyperlipidemia, Hypertension, Thyroid Disfunction Patient has suicidal ideation: No Patient has homicidal ideation: No - Past Medical History Cardiac Medical History: Reports: Hx Hypertension Renal/ Medical History: Denies: Hx Peritoneal Dialysis Past Surgical History: Reports: Hx Appendectomy, Hx Cholecystectomy - 10/07/17, Hx Orthopedic Surgery - L Knee, Hx Tubal Ligation - Immunizations Immunizations up to date: Yes Hx Diphtheria, Pertussis, Tetanus Vaccination: Yes Review of Systems - Review of Systems Constitutional: No symptoms reported EENT: No symptoms reported Cardiovascular: Chest pain Respiratory: No symptoms reported Gastrointestinal: No symptoms reported Genitourinary: No symptoms reported Female Genitourinary: No symptoms reported Musculoskeletal: No symptoms reported Skin: No symptoms reported Hematologic/Lymphatic: No symptoms reported Neurological/Psychological: No symptoms reported -: Yes All other systems reviewed and negative Physical Exam - Vital signs Vitals: Temp BP Pulse Ox 98.2 F 134/97 H 99 02/13/18 18:22 02/13/18 18:22 02/13/18 18:22 Interpretation: Normal - General General appearance: Appears well, Alert - HEENT Head: Normocephalic, Atraumatic Eyes: Normal Pupils: PERRL - Respiratory Respiratory status: No respiratory distress Chest status: Tender - Upon auscultation of the patient's heart when I placed the stethoscope on the anterior chest wall patient moans and screams in pain patient states any light touch exacerbates her pain palpation of the left sternal border along with palpation of the coracoid process also reproduces the patient's pain movement of the left arm with reproduces the patient's chest pain Breath sounds: Normal Chest palpation: Normal - Cardiovascular Rhythm: Regular Heart sounds: Normal auscultation Murmur: No - Abdominal Inspection: Morbidly Obese Distension: No distension Bowel sounds: Normal Tenderness: Nontender Organomegaly: No organomegaly - Back Back: Normal, Nontender - Extremities General upper extremity: Normal inspection, Nontender, Normal color, Normal ROM, Normal temperature General lower extremity: Normal inspection, Nontender, Normal color, Normal ROM, Normal temperature, Normal weight bearing. No: Hansel's sign - Neurological Neuro grossly intact: Yes Cognition: Normal Orientation: AAOx4 [place] Coma Scale Eye Opening: Spontaneous Theodore Coma Scale Verbal: Oriented Theodore Coma Scale Motor: Obeys Commands [place] Coma Scale Total: 15 Speech: Normal Motor strength normal: LUE, RUE, LLE, RLE Sensory: Normal - Psychological Associated symptoms: Normal affect, Normal mood - Skin Skin Temperature: Warm Skin Moisture: Dry Skin Color: Normal Course - Re-evaluation Re-evalutation: 02/13/18 18:51 Patient with morbid obesity otherwise denies any medical issues currently on propranolol for unknown reason coming in for chest pain EKG at this time shows normal sinus rhythm with a rate is 68 NH 160 QRS duration 100 QTc [address] segment elevation or depressions T wave inversions 02/14/18 02:34 Chest pain improved with ketorolac and GI cocktail laboratory studies not show any acute findings will discharge patient home the patient has atypical chest pain as the patient's chest pain is not suggestive of pulmonary embolus, cardiac ischemia, aortic dissection, or other serious etiology. Given the extremely low risk of these diagnoses further testing and evaluation for these possibilities does not appear to be indicated at this time. The patient has been instructed to return if the symptoms worsen or change in any way. - Vital Signs Vital signs: Temp Pulse Resp BP Pulse Ox 98.1 F 20 119/75 98 02/13/18 21:23 02/13/18 21:23 02/13/18 21:01 02/13/18 21:01 - Laboratory Result Diagrams: 02/13/18 18:25 02/13/18 18:25 Discharge - Discharge Clinical Impression: Chest wall pain Condition: Good Disposition: HOME, SELF-CARE Instructions: Anti-Inflammatory Medication ([facility]), Chest Wall Pain ([facility]), Reflux Disease (GERD) ([facility]) Additional Instructions: Your EKG chest x-ray laboratory studies not reveal any critical pathology for your chest pain at this time. With improvement of the pain with anti- inflammatory medication here and with improvement of her pain with GI cocktail possibly dual etiology as underlying gastritis and inflammation of the chest wall causing her pain. Would recommend to continue with Tylenol motion therapy Zantac to help after symptoms follow-up with your primary care physician. Return to the ER for any concerning issues. Prescriptions: Ibuprofen [Motrin 600 mg Tablet] 600 mg PO Q8HP PRN #21 tablet PRN Reason: Ranitidine HCl [Zantac 75 mg Tablet] 75 mg PO BID #20 tablet Referrals: [facility] [Primary Care Provider] - Follow up as needed
[2018-02-13 18:55] LABS: INTERNATIONAL RATION (INR) 0.87; PROTHROMBIN TIME 12.3 SEC (11.4-15.4)
[2018-02-13 19:07] LABS: TROPONIN I < 0.012 ng/mL
--- NOTE | 2018-02-13 19:16 | RADIOLOGY REPORT (SQ) ---
EXAM DESCRIPTION: CHEST SINGLE VIEW COMPLETED DATE/TIME: 02/13/2018 7:06 pm REASON FOR STUDY: cp COMPARISON: 12/16/2017 EXAM PARAMETERS: NUMBER OF VIEWS: One view. TECHNIQUE: Single frontal radiographic view of the chest acquired. RADIATION DOSE: NA LIMITATIONS: None. FINDINGS: LUNGS AND PLEURA: No opacities, masses or pneumothorax. No pleural effusion. MEDIASTINUM AND HILAR STRUCTURES: No masses. Contour normal. HEART AND VASCULAR STRUCTURES: Heart normal in size. Normal vasculature. BONES: No acute findings. HARDWARE: None in the chest. OTHER: No other significant finding. IMPRESSION: NO ACUTE RADIOGRAPHIC FINDING IN THE CHEST. TECHNICAL DOCUMENTATION: JOB ID: [id number] [employer]- All Rights Reserved Reading location - IP/workstation name: [email or web address]
[2018-02-13] MEDS ORDERED: LIDOCAINE 2% VISCOUS SOLN 20 ML UDCUP PO ONE (20:09)
[2018-02-13] MEDS ORDERED: MAG HYDROX/AL HYDROX/SIMETH SUSP 30 ML UDCUP PO ONE (20:09)
[2018-02-13] MEDS ORDERED: METOCLOPRAMIDE HCL ORAL SOLN 10 MG/10 ML UDCUP PO ONE (20:09)
[2018-02-13 21:23] VITALS: BP 119/75
--- NOTE | 2018-02-14 00:01 | EKG REPORT ---
SEVERITY:- NORMAL ECG - SINUS RHYTHM : Confirmed by: Iris Sena 14-Feb-2018 00:00:43
== END 2018-02-13 21:24 | disposition home or self-care (01) ==
LOC: ER 18:13
DX: R07.89 Other chest pain (principal); E66.01 Morbid (severe) obesity due to excess calories; I10 Essential (primary) hypertension; Z90.49 Acquired absence of other specified parts of digestive tract; Z98.51 Tubal ligation status
CPT/HCPCS: 93005; 99285; 96361; 96374; 96375; 36415; 82553; 82550; 83690; 84703; 85025; 85610; 80053; 84484; 85379; 71045; 93010; J3490; J1885; J2405; J7040

== ENCOUNTER 2018-03-19 19:25 | Emergency (ER) | payer SELFPAY ==
[2018-03-19 19:50] VITALS: BP 154/102
== END 2018-03-20 00:10 | disposition left against medical advice (07) ==
LOC: ER 19:25
DX: Z53.21 Procedure and treatment not carried out due to patient leaving prior to being seen by health care provider (principal); R10.2 Pelvic and perineal pain

== ENCOUNTER 2018-04-14 18:28 | Emergency (ER) | payer SELFPAY ==
[2018-04-14] MEDS ORDERED: NORMAL SALINE 1000 ML 1,000 ML IV ONE (20:06)
[2018-04-14] MEDS ORDERED: METOCLOPRAMIDE HCL INJ/PF 10 MG/2 ML SDV IV ONE (20:06)
[2018-04-14 20:42] LABS: HEMATOCRIT 39.9 % (36.0-47.0); HEMOGLOBIN 13.5 g/dL (12.0-15.5); MEAN CORPUSCULAR HEMOGLOBIN 30.8 pg (27.0-33.4); MEAN CORPUSCULAR HGB CONC 33.9 g/dL (32.0-36.0); MEAN CORPUSCULAR VOLUME 91 fl (80-97); PLATELET COUNT 317 10^3/uL (150-450); RED BLOOD COUNT 4.38 10^6/uL (3.72-5.28); WHITE BLOOD COUNT 8.1 10^3/uL (4.0-10.5)
[2018-04-14] MEDS ORDERED: ACETAZOLAMIDE 250 MG TABLET PO ONE (21:55)
--- NOTE | 2018-04-14 21:59 | ER Document Report ---
ED Headache - General Chief Complaint: Headache Stated Complaint: DIZZY AND HEADACHE Time Seen by Provider: 04/14/18 20:06 Notes: Patient is a 32-year-old female with past medical history of morbid obesity, idiopathic intrarenal hypertension, presents with 2 days of a global, throbbing, aching headache. Describes it as being bitemporal, squeezing in nature. Worsened by activity, lights and sounds. Standing position also worsens the headache. Nothing seems to improve the headache. Has had similar headaches in the past. Ms. Hairston also feels somewhat dizzy or lightheaded. Denies focal weakness or numbness. Has not seen her primary doctor regarding today's concerns. Is not currently taking Diamox which has been prescribed for id iopathic intrarenal hypertension. TRAVEL OUTSIDE OF THE [place] IN LAST 30 DAYS: No - Related Data Allergies/Adverse Reactions: No Known Allergies Allergy (Verified 04/14/18 18:32) Past Medical History - General Information source: Patient - Social History Smoking Status: Never Smoker Frequency of alcohol use: None Drug Abuse: None Lives with: Spouse/Significant other Family History: Arthritis, CAD, COPD, CVA, DM, Hyperlipidemia, Hypertension, Thyroid Disfunction Patient has suicidal ideation: No Patient has homicidal ideation: No - Past Medical History Cardiac Medical History: Reports: Hx Hypertension Renal/ Medical History: Denies: Hx Peritoneal Dialysis Past Surgical History: Reports: Hx Appendectomy, Hx Cholecystectomy - 10/07/17, Hx Orthopedic Surgery - L Knee, Hx Tubal Ligation - Immunizations Immunizations up to date: Yes Hx Diphtheria, Pertussis, Tetanus Vaccination: Yes Review of Systems - Review of Systems Notes: Constitutional: Negative for fever. HENT: Negative for sore throat. Eyes: Negative for visual changes. Cardiovascular: Negative for chest pain. Respiratory: Negative for shortness of breath. Gastrointestinal: Negative for abdominal pain, positive for nausea Genitourinary: Negative for dysuria. Musculoskeletal: Negative for back pain. Skin: Negative for rash. Neurological: Positive for headache 10 point ROS negative except as marked above and in HPI. Physical Exam - Vital signs Vitals: Temp Pulse Resp BP Pulse Ox 98.9 F 74 18 151/104 H 98 04/14/18 18:58 04/14/18 18:58 04/14/18 18:58 04/14/18 18:58 04/14/18 18:58 Interpretation: Hypertensive Notes: PHYSICAL EXAMINATION: GENERAL: Appears moderately uncomfortable but in no acute distress HEAD: Atraumatic, normocephalic. EYES: Pupils equal round and reactive to light, extraocular movements intact, sclera anicteric, conjunctiva are normal. ENT: nares patent, oropharynx clear without exudates. Moderately dry mucous membranes. NECK: Normal range of motion, supple without lymphadenopathy LUNGS: Breath sounds clear to auscultation bilaterally and equal. No wheezes rales or rhonchi. HEART: Regular rate and rhythm without murmurs ABDOMEN: Soft, nontender, normoactive bowel sounds. No guarding, no rebound. No masses appreciated. EXTREMITIES: Normal range of motion, no pitting or edema. No cyanosis. NEUROLOGICAL: Face symmetric. Tongue protrudes midline. Extraocular motions intact. Pupils are 2 mm and equally reactive. Normal speech, normal gait. 5 out of 5 strength in both the distal and proximal upper and lower extremities bilaterally. Sensation is grossly intact throughout. Finger to nose testing normal. Pronator drift normal. PSYCH: Normal mood, normal affect. SKIN: Warm, Dry, normal turgor, no rashes or lesions noted. Course - Re-evaluation Re-evalutation: 04/14/18 21:58 Presentation of an overall well-appearing morbidly obese 32-year-old female with complaints of a headache. Patient has a known history of hepatic intrarenal hypertension, is currently off of her Diamox which I suspect may be the trigger of her headache today. She has no focal neurologic deficits on exam. No fever or constitutional symptoms. Headache improved after 10mg of metoclopramide. Patient is currently following as an outpatient for definitive management of this issue. I have restarted her Diamox. No indication for repeat neuroimaging. Labs otherwise unremarkable. At this time will discharge with return precautions and follow-up recommendations. Verbal discharge instructions given a the bedside and opportunity for questions given. Medication warnings reviewed. Patient is in agreement with this plan and has verbalized understanding of return precautions and the need for primary care follow-up in the next 24-72 hours. - Vital Signs Vital signs: Temp Pulse Resp BP Pulse Ox 98.1 F 76 18 148/90 H 98 04/14/18 22:20 04/14/18 22:20 04/14/18 22:20 04/14/18 22:20 04/14/18 22:20 - Laboratory Result Diagrams: 04/14/18 20:34 04/14/18 20:34 Discharge - Discharge Clinical Impression: Empty sella syndrome, Idiopathic intracranial hypertension Headache Qualifiers: Headache type: unspecified Headache chronicity pattern: acute headache Intractability: not intractable Qualified Code(s): R51 - Headache Condition: Good Disposition: HOME, SELF-CARE Additional Instructions: You have been seen in the Emergency Department (ED) for a headache. Please use Tylenol (acetaminophen) or Motrin (ibuprofen) as needed for symptoms, but only as written on the box. Please take the Diamox as prescribed. You need to follow-up with neurology for definitive diagnosis of what I suspect is idiopathic intracranial hypertension. As we have discussed, please follow up with your primary care doctor as soon as possible regarding today's ED visit and your headache symptoms. Call your doctor or return to the ED if you have a worsening headache, sudden and severe headache, confusion, slurred speech, facial droop, weakness or numbness in any arm or leg, extreme fatigue, or other symptoms that concern you. Prescriptions: Acetazolamide [Diamox Sequel 500 mg] 500 mg PO Q12 #60 cap
[2018-04-14 22:03] LABS: ANION GAP 10 (5-19); BLOOD UREA NITROGEN 17 mg/dL (7-20); CALCIUM 9.3 mg/dL (8.4-10.2); CARBON DIOXIDE 27 mmol/L (22-30); CHLORIDE 102 mmol/L (98-107); GLUCOSE 91 mg/dL (75-110); POTASSIUM 4.8 mmol/L (3.6-5.0); SODIUM 138.8 mmol/L (137-145)
[2018-04-14 22:53] VITALS: BP 148/90
== END 2018-04-14 22:20 | disposition home or self-care (01) ==
LOC: ER 18:28
DX: G93.2 Benign intracranial hypertension (principal); E23.6 Other disorders of pituitary gland; R51 Headache
CPT/HCPCS: 99284; 96361; 96374; 36415; 84703; 85027; 80048; J3490; J2765; J7030

== ENCOUNTER 2018-06-26 17:37 | Emergency (ER) | payer SELFPAY ==
[2018-06-26] MEDS ORDERED: IBUPROFEN 600 MG TABLET PO ONE (18:29)
[2018-06-26] MEDS ORDERED: ASPIRIN 81 MG TABLET, CHEWABLE PO ONE (18:29)
--- NOTE | 2018-06-26 18:31 | ER Document Report ---
ED Medical Screen (RME) - General Chief Complaint: Chest Pain > 30 Stated Complaint: CHEST PAIN,SHORTNESS OF BREATH Time Seen by Provider: 06/26/18 18:26 Mode of Arrival: Wheelchair Information source: Patient Notes: Patient presents emergency department with complaints of chest pain that started this morning. Reports short of breath increased pain with exertion. Increased chest pain when palpating her chest. Denies fever vomiting diarrhea. Reports she has had a history of chest pain in the past but denies [place] cardiac disease. Reports father with a history of cardiac disease multiple strokes and brother with open heart surgery at 2 years old. Denies trauma. EKG shows sinus tach I have greeted and performed a rapid initial assessment of this patient. A comprehensive ED assessment and evaluation of the patient, analysis of test results and completion of the medical decision making process will be conducted by additional ED providers. Dictation of this chart was performed using voice recognition software; therefore, there may be some unintended grammatical errors. TRAVEL OUTSIDE OF THE [place] IN LAST 30 DAYS: No - Related Data Allergies/Adverse Reactions: No Known Allergies Allergy (Verified 06/26/18 17:49) Past Medical History - Past Medical History Cardiac Medical History: Reports: Hx Hypertension Renal/ Medical History: Denies: Hx Peritoneal Dialysis Past Surgical History: Reports: Hx Appendectomy, Hx Cholecystectomy - 10/07/17, Hx Orthopedic Surgery - L Knee, Hx Tubal Ligation - Immunizations Immunizations up to date: Yes Hx Diphtheria, Pertussis, Tetanus Vaccination: Yes History of Influenza Vaccine for 11/2016 - 04/2017 Season: No Physical Exam - Vital signs Vitals: Temp Pulse Resp BP Pulse Ox 98.5 F 105 H 16 130/93 H 97 06/26/18 17:55 06/26/18 17:55 06/26/18 17:55 06/26/18 17:55 06/26/18 17:55 Course - Vital Signs Vital signs: Temp Pulse Resp BP Pulse Ox 98.5 F 105 H 16 130/93 H 97 06/26/18 17:55 06/26/18 17:55 06/26/18 17:55 06/26/18 17:55 06/26/18 17:55
--- NOTE | 2018-06-26 19:00 | RADIOLOGY REPORT (SQ) ---
EXAM DESCRIPTION: CHEST 2 VIEWS COMPLETED DATE/TIME: 06/26/2018 6:52 pm REASON FOR STUDY: chest pain COMPARISON: None. EXAM PARAMETERS: NUMBER OF VIEWS: two views TECHNIQUE: Digital Frontal and Lateral radiographic views of the chest acquired. RADIATION DOSE: NA LIMITATIONS: none FINDINGS: LUNGS AND PLEURA: No opacities, masses or pneumothorax. No pleural effusion. MEDIASTINUM AND HILAR STRUCTURES: No masses or contour abnormalities. HEART AND VASCULAR STRUCTURES: Heart normal size. No evidence for failure. BONES: No acute findings. HARDWARE: None in the chest. OTHER: No other significant finding. IMPRESSION: NO ACUTE RADIOGRAPHIC FINDING IN THE CHEST. TECHNICAL DOCUMENTATION: JOB ID: [id number] [email or web address]- All Rights Reserved Reading location - IP/workstation name: [email or web address]
[2018-06-26 19:29] LABS: ABSOLUTE EOSINOPHILS # (AUTO) 0.1 10^3/uL (0.0-0.6); ABSOLUTE LYMPHOCYTES (AUTO) 1.8 10^3/uL (0.5-4.7); ABSOLUTE MONOCYTES (AUTO) 0.7 10^3/uL (0.1-1.4); ABSOLUTE NEUT (AUTO) 8.4 10^3/uL (1.7-8.2); BASOPHILS % (AUTO) 0.4 % (0-2); EOSINOPHILS % (AUTO) 0.7 % (0-6); HEMATOCRIT 42.5 % (36.0-47.0); LYMPHOCYTES % (AUTO) 16.4 % (13-45); MEAN CORPUSCULAR HEMOGLOBIN 29.8 pg (27.0-33.4); MEAN CORPUSCULAR HGB CONC 32.9 g/dL (32.0-36.0); MEAN CORPUSCULAR VOLUME 90 fl (80-97); MONOCYTES % (AUTO) 6.3 % (3-13); PLATELET COUNT 333 10^3/uL (150-450); RED CELL DISTRIBUTION WIDTH 14.2 % (11.5-14.0); SEGMENTED NEUTROPHILS % (AUTO) 76.2 % (42-78); TOTAL CELLS COUNTED % (AUTO) 100 %
[2018-06-26 19:49] LABS: ALANINE AMINOTRANSFERASE 26 U/L (9-52); ALBUMIN 4.1 g/dL (3.5-5.0); ALKALINE PHOSPHATASE 86 U/L (38-126); ANION GAP 11 (5-19); ASPARTATE AMINO TRANSFERASE 17 U/L (14-36); BILIRUBIN,DIRECT 0.2 mg/dL (0.0-0.4); BILIRUBIN,TOTAL 0.2 mg/dL (0.2-1.3); BLOOD UREA NITROGEN 16 mg/dL (7-20); CALCIUM 9.9 mg/dL (8.4-10.2); CARBON DIOXIDE 22 mmol/L (22-30); CHLORIDE 109 mmol/L (98-107); CREATINE KINASE 43 U/L (30-135); GLUCOSE 111 mg/dL (75-110); POTASSIUM 4.3 mmol/L (3.6-5.0); SODIUM 142.3 mmol/L (137-145); TOTAL PROTEIN 8.1 g/dL (6.3-8.2)
[2018-06-26 21:46] LABS: APPEARANCE,URINE CLOUDY; BILIRUBIN,URINE NEGATIVE (NEGATIVE); CALCIUM OXALATE CRYSTALS,URINE MANY /HPF; COLOR,URINE YELLOW; GLUCOSE, URINE NEGATIVE (NEGATIVE); KETONES,URINE NEGATIVE (NEGATIVE); LEUKOCYTE ESTERASE,URINE LARGE (NEGATIVE); NITRITE,URINE NEGATIVE (NEGATIVE); PROTEIN,URINE NEGATIVE (NEGATIVE); URINE SPECIFIC GRAVITY 1.029; UROBILINOGEN,URINE NEGATIVE mg/dL (<2.0)
--- NOTE | 2018-06-26 22:32 | EKG REPORT ---
SEVERITY:- ABNORMAL ECG - SINUS TACHYCARDIA PROBABLE LEFT ATRIAL ABNORMALITY BORDERLINE Q WAVES IN INFERIOR LEADS INFERIOR Q WAVES, PROBABLY NORMAL VARIATION : Confirmed by: Liberty Gutiérrez MD 26-Jun-2018 22:32:23
[2018-06-26] MEDS ORDERED: OXYCODONE-ACETAMINOPHEN 5-325 MG TABLET PO ONE (22:33)
[2018-06-26 23:35] LABS: CREATINE KINASE MB 0.31 ng/mL (<4.55)
[2018-06-26 23:37] LABS: TROPONIN I < 0.012 ng/mL
--- NOTE | 2018-06-27 00:14 | ER Document Report ---
ED General - General Chief Complaint: Chest Pain > 30 Stated Complaint: CHEST PAIN,SHORTNESS OF BREATH Time Seen by Provider: 06/26/18 18:26 Mode of Arrival: Wheelchair TRAVEL OUTSIDE OF THE [place] IN LAST 30 DAYS: No - HPI Notes: Patient is a 33-year-old female who presents to the emergency department for evaluation of left-sided chest pain. She states it started this morning while she was in the shower. Seem to get worse when she was [place] walk [place] the [place]. She states it was a leisurely walk. She states the pain is sharp and stabbing, occasionally radiates into her left arm. She states is worsened by moving her arm as well as by taking deep breaths. Nothing seems to make it better. - Related Data Allergies/Adverse Reactions: No Known Allergies Allergy (Verified 06/26/18 17:49) Past Medical History - General Information source: Patient - Social History Smoking Status: Never Smoker Chew tobacco use (# tins/day): No Frequency of alcohol use: None Drug Abuse: None Family History: Arthritis, CAD, COPD, CVA, DM, Hyperlipidemia, Hypertension, Thyroid Disfunction Patient has suicidal ideation: No Patient has homicidal ideation: No - Past Medical History Cardiac Medical History: Reports: Hx Hypertension Renal/ Medical History: Denies: Hx Peritoneal Dialysis Past Surgical History: Reports: Hx Appendectomy, Hx Cholecystectomy - 10/07/17, Hx Orthopedic Surgery - L Knee, Hx Tubal Ligation - Immunizations Immunizations up to date: Yes Hx Diphtheria, Pertussis, Tetanus Vaccination: Yes Review of Systems - Review of Systems Constitutional: No symptoms reported EENT: No symptoms reported Cardiovascular: See HPI Respiratory: No symptoms reported Gastrointestinal: No symptoms reported, Nausea Female Genitourinary: No symptoms reported Musculoskeletal: See HPI Neurological/Psychological: No symptoms reported Physical Exam - Vital signs Vitals: Temp Pulse Resp BP Pulse Ox 98.5 F 105 H 16 130/93 H 97 06/26/18 17:55 06/26/18 17:55 06/26/18 17:55 06/26/18 17:55 06/26/18 17:55 - Notes Notes: Vital signs reviewed, please refer to chart. Head is normocephalic, atraumatic. Pupils equal round, reactive to light. Neck is supple without meningismus. Heart is regular rate and rhythm. Lungs are clear to auscultation bilaterally. Chest wall excursion is equal. Left side of the chest is exquisitely tender to palpation, no obvious defects on inspection. Abdomen is soft, nontender, normoactive bowel sounds throughout. Extremities without cyanosis, clubbing. Posterior calves are nontender. Peripheral pulses are equal. Examination of the left upper extremity yields no obvious deformity. She has tenderness to palpation in the proximal arm near the insertion of the pectoralis muscle, as well as into the bicep. Neurovascularly intact distally. Skin is warm and dry. Patient is awake, alert, neurological exam is nonfocal. Course - Re-evaluation Re-evalutation: 06/27/18 00:06 Patient presents to the emergency department for evaluation. She complained of chest pain. It is sharp in nature, reproducible. She does have risk factors, but her story is not significantly concerning for anginal type pain. She was medicated here with some relief. Her laboratory investigations were unremarkable, including troponin x2. EKG failed to reveal any acute changes. To the patient that she needs further evaluation, should more strongly address her risk factors in regards to coronary artery disease. She voiced understanding to this. Otherwise, we will send her home with muscle relaxers for her chest wall pain. She is to follow-up with primary care, return to the ED with worsening or new concerning symptoms of any sort. - Vital Signs Vital signs: Temp Pulse Resp BP Pulse Ox 98.5 F 105 H 21 H 136/89 H 97 06/26/18 17:55 06/26/18 17:55 06/26/18 22:01 06/26/18 22:01 06/26/18 22:01 - Laboratory Result Diagrams: 06/26/18 19:16 06/26/18 19:16 Laboratory results interpreted by me: 06/26/18 06/26/18 06/26/18 19:16 19:16 21:15 WBC 11.0 H RDW 14.2 H Absolute Neutrophils 8.4 H Chloride 109 H Glucose 111 H Ur Leukocyte Esterase LARGE H - Diagnostic Test Radiology reviewed: Reports reviewed Radiology results interpreted by me: 06/27/18 00:05 Chest X-Ray 06/26/18 18:29 IMPRESSION: NO ACUTE RADIOGRAPHIC FINDING IN THE CHEST. - EKG Interpretation by Me Additional EKG results interpreted by me: 06/27/18 00:05 Sinus tachycardia with a rate of 103 bpm. Normal axis and intervals, nonspecific ST-T wave changes, but no acute ST elevation concerning for infarction. Discharge - Discharge Clinical Impression: Chest wall pain Condition: Stable Disposition: HOME, SELF-CARE Instructions: Chest Wall Pain ([facility]) Additional Instructions: Take muscle relaxers as directed. Moist heat to the painful area. Follow-up with your primary care physician. He should have further outpatient work-up for your chest pain. Return to the emergency department with worsening or new concerning symptoms.
[2018-06-27 00:19] VITALS: BP 136/81
== END 2018-06-27 00:22 | disposition home or self-care (01) ==
LOC: ER 17:37
DX: R07.9 Chest pain, unspecified (principal); R06.02 Shortness of breath; I10 Essential (primary) hypertension; Z90.49 Acquired absence of other specified parts of digestive tract; Z98.51 Tubal ligation status
CPT/HCPCS: 36415; 71046; 80053; 81001; 82550; 82553; 84484; 84703; 85025; 93005; 93010; 99284

== ENCOUNTER 2018-08-20 18:55 | Emergency (ER) | payer SELFPAY ==
[2018-08-20 19:16] VITALS: BP 151/85
[2018-08-20 20:26] LABS: APPEARANCE,URINE SLIGHTLY-CLOUDY; BILIRUBIN,URINE NEGATIVE (NEGATIVE); COLOR,URINE YELLOW; GLUCOSE, URINE NEGATIVE (NEGATIVE); KETONES,URINE NEGATIVE (NEGATIVE); LEUKOCYTE ESTERASE,URINE SMALL (NEGATIVE); NITRITE,URINE NEGATIVE (NEGATIVE); PROTEIN,URINE NEGATIVE (NEGATIVE); URINE SPECIFIC GRAVITY 1.021; UROBILINOGEN,URINE NEGATIVE mg/dL (<2.0)
[2018-08-20] MEDS ORDERED: NORMAL SALINE 1000 ML 1,000 ML IV ONE (20:52)
[2018-08-20] MEDS ORDERED: ONDANSETRON HCL INJ/PF 4 MG/2 ML SDV IV ONE (20:52)
--- NOTE | 2018-08-20 20:54 | ER Document Report ---
HPI - HPI Time Seen by Provider: 08/20/18 20:15 Pain Level: 5 Notes: Patient is a 33-year-old female with no significant past medical history aside from hypertension, cholecystectomy, appendectomy who presents complaining of nausea, watery diarrhea, generalized weakness, "feeling dehydrated" that began today. Patient states that she is able to eat and drink, but is unable to "quench her thirst." Pt states they have been outside for the past couple days. She has no other concerns or complaints. No pain anywhere. Denies drug allergies. Denies any headache, fever, neck pain, changes in vision/speech/mentation/hearing, URI, sore throat, chest pain, palpitations, syncope, cough, shortness of breath, wheeze, dyspnea, abdominal pain, vomiting, urinary retention, dysuria, hematuria, loss of control of bowel or bladder, numbness/tingling, muscle paralysis/weakness, or rash. - ROS Systems Reviewed and Negative: Yes All other systems reviewed and negative - NEURO Neurology: DENIES: Headache - URINARY Urinary: DENIES: Dysuria, Urgency, Frequency - REPRODUCTIVE Reproductive: DENIES: : Past Medical History - Social History Smoking Status: Never Smoker Chew tobacco use (# tins/day): No Frequency of alcohol use: None Family History: Arthritis, CAD, COPD, CVA, DM, Hyperlipidemia, Hypertension, Thyroid Disfunction Patient has suicidal ideation: No Patient has homicidal ideation: No - Past Medical History Cardiac Medical History: Reports: Hx Hypertension Renal/ Medical History: Denies: Hx Peritoneal Dialysis Past Surgical History: Reports: Hx Appendectomy, Hx Cholecystectomy - 10/07/17, Hx Orthopedic Surgery - L Knee, Hx Tubal Ligation - Immunizations Immunizations up to date: Yes Hx Diphtheria, Pertussis, Tetanus Vaccination: Yes Vertical Provider Document - CONSTITUTIONAL Agree With Documented VS: Yes Notes: PHYSICAL EXAMINATION: GENERAL: Well-appearing, well-nourished and in no acute distress. Morbidly obese. HEAD: Atraumatic, normocephalic. EYES: Pupils equal round and reactive to light, extraocular movements intact, sclera anicteric, conjunctiva are normal. ENT: Nares patent and without discharge. oropharynx clear without exudates. No tonsilar hypertrophy or erythema. Moist mucous membranes. NECK: Normal range of motion, supple without lymphadenopathy LUNGS: Breath sounds clear to auscultation bilaterally and equal. No wheezes rales or rhonchi. HEART: Regular rate and rhythm without murmurs, rubs, gallops. ABDOMEN: Soft, nontender, nondistended abdomen. No guarding, no rebound. No masses appreciated. Normal bowel sounds present. No CVA tenderness bilaterally. Musculoskeletal: FROM to passive/active. Strength 5+/5. Extremities: No cyanosis, clubbing, or edema b/l. Peripheral pulses 2+. Capillary refill less than 3 seconds. NEUROLOGICAL: Cranial nerves grossly intact. Normal speech, normal gait. No rmal sensory, motor exams PSYCH: Normal mood, normal affect. SKIN: Warm, Dry, normal turgor, no rashes or lesions noted. - INFECTION CONTROL TRAVEL OUTSIDE OF THE [place] IN LAST 30 DAYS: No Course - Re-evaluation Re-evalutation: 08/20/18 22:35 Patient is an afebrile, well-hydrated, 33-year-old female who presents with nausea and diarrhea, suspect viral or other benign condition. Vitals are acceptable without significant tachycardia, tachypnea, or hypoxia. PE is otherwise unremarkable. Patient's abdomen is soft and nontender. Her lungs are clear to auscultation bilaterally. She is nontoxic-appearing and is able to tolerate p.o. without difficulty. Patient was given nausea medicine as well as some fluids and she is feeling better than she was. CBC, CMP, CK, urinalysis, hCG are all unremarkable for acute pathology. No further work-up warranted at this time. Patient feels comfortable to go home. Low suspicion for any sepsis, meningitis, severe dehydration, respiratory compromise, acute abdomen, rhabdomyolysis, or other systemic emergent condition at this time. Patient is aware that condition can change from initial presentation and she needs to monitor symptoms closely and seek medical attention with any acute changes. I will send her home with some nausea medicine. Recheck with your PCM in 2 to 3 days. Return to the ED with any other worsening/concerning symptoms. Patient is in agreement. - Vital Signs Vital signs: Temp Pulse Resp BP Pulse Ox 98.7 F 66 16 151/85 H 98 08/20/18 19:15 08/20/18 19:15 08/20/18 19:15 08/20/18 19:15 08/20/18 19:15 - Laboratory Result Diagrams: 08/20/18 21:07 08/20/18 21:07 Laboratory results interpreted by me: 08/20/18 20:00 Ur Leukocyte Esterase SMALL H Discharge - Discharge Clinical Impression: Nausea Diarrhea Qualifiers: Diarrhea type: unspecified type Qualified Code(s): R19.7 - Diarrhea, unspecified Condition: Stable Disposition: HOME, SELF-CARE Additional Instructions: Maintain adequate fluid and food intake [place] diet ([employer] Bananas, rice, apples, toast, etc Zofran as needed tylenol if needed Monitor for any worsening symptoms Make sure you are staying hydrated enough to urinate and have normal BM's Recheck with your PCM in 2-3 days Consider consult with Gastroenterology for ongoing/worsening symptoms Return to the ED with any worsening symptoms and/or development of fever, headache, chest pain, palpitations, syncope, shortness of breath, trouble breathing, abdominal pain, n/v/d, blood in stool/urine, weakness, or other worsening symptoms that are concerning to you. Prescriptions: Ondansetron [Zofran Odt 4 mg Tablet] 1 - 2 tab PO Q4H PRN #15 tab.rapdis PRN Reason: For Nausea/Vomiting Forms: Elevated Blood Pressure Referrals: JOSELYN ALDRICH MD [Primary Care Provider] - Follow up as needed
[2018-08-20 21:35] LABS: ABSOLUTE EOSINOPHILS # (AUTO) 0.2 10^3/uL (0.0-0.6); ABSOLUTE LYMPHOCYTES (AUTO) 2.3 10^3/uL (0.5-4.7); ABSOLUTE MONOCYTES (AUTO) 0.7 10^3/uL (0.1-1.4); ABSOLUTE NEUT (AUTO) 5.1 10^3/uL (1.7-8.2); BASOPHILS % (AUTO) 0.4 % (0-2); EOSINOPHILS % (AUTO) 2.7 % (0-6); HEMATOCRIT 36.2 % (36.0-47.0); LYMPHOCYTES % (AUTO) 27.3 % (13-45); MEAN CORPUSCULAR HEMOGLOBIN 30.2 pg (27.0-33.4); MEAN CORPUSCULAR HGB CONC 33.2 g/dL (32.0-36.0); MEAN CORPUSCULAR VOLUME 91 fl (80-97); MONOCYTES % (AUTO) 8.1 % (3-13); PLATELET COUNT 281 10^3/uL (150-450); RED BLOOD COUNT 3.97 10^6/uL (3.72-5.28); RED CELL DISTRIBUTION WIDTH 14.1 % (11.5-14.0); SEGMENTED NEUTROPHILS % (AUTO) 61.5 % (42-78); TOTAL CELLS COUNTED % (AUTO) 100 %; WHITE BLOOD COUNT 8.3 10^3/uL (4.0-10.5)
[2018-08-20 21:54] LABS: ALANINE AMINOTRANSFERASE 27 U/L (9-52); ALBUMIN 3.6 g/dL (3.5-5.0); ALKALINE PHOSPHATASE 71 U/L (38-126); ANION GAP 7 (5-19); ASPARTATE AMINO TRANSFERASE 31 U/L (14-36); BILIRUBIN,DIRECT 0.2 mg/dL (0.0-0.4); BILIRUBIN,TOTAL 0.2 mg/dL (0.2-1.3); BLOOD UREA NITROGEN 11 mg/dL (7-20); CALCIUM 8.5 mg/dL (8.4-10.2); CARBON DIOXIDE 27 mmol/L (22-30); CHLORIDE 105 mmol/L (98-107); GLUCOSE 121 mg/dL (75-110); SODIUM 139.2 mmol/L (137-145); TOTAL PROTEIN 7.2 g/dL (6.3-8.2)
[2018-08-20 22:24] LABS: CREATINE KINASE 181 U/L (30-135)
[2018-08-20] MEDS ORDERED: METOCLOPRAMIDE HCL INJ/PF 10 MG/2 ML SDV IV ONE (22:38)
== END 2018-08-20 23:03 | disposition home or self-care (01) ==
LOC: ER 18:55
DX: R11.0 Nausea (principal); R19.7 Diarrhea, unspecified
CPT/HCPCS: 99284; 96361; 96374; 36415; 82550; 85025; 81025; 80053; 81001; J2405; J7030

== ENCOUNTER 2018-11-23 18:55 | Emergency (ER) | payer SELFPAY ==
--- NOTE | 2018-11-23 19:42 | ER Document Report ---
ED Medical Screen (RME) - General Stated Complaint: HEADACHE, NAUSEA,WEAKNESS Time Seen by Provider: 11/23/18 19:38 Primary Care Provider: JOSELYN ALDRICH MD [Primary Care Provider] - Follow up as needed Mode of Arrival: Wheelchair Information source: Patient Notes: 33-year-old female presented to ED for complaint of headache. She states she has chronic migraines. She usually takes Excedrin for her headaches. She states [facility]. She states she has a history of high blood pressure migraines and deteriorating brain tissue. She has had a left knee surgery for dislocation and appendectomy a bilateral tubal ligation and a cholecystectomy. She denies any smoking drinking or use of any drugs. She does live with her . I have greeted and performed a rapid initial assessment of this patient. A comprehensive ED assessment and evaluation of the patient, analysis of test results and completion of medical decision making process will be conducted by a n additional ED providers. TRAVEL OUTSIDE OF THE [place] IN LAST 30 DAYS: No - Related Data Allergies/Adverse Reactions: No Known Allergies Allergy (Verified 08/20/18 19:06) Past Medical History - Past Medical History Cardiac Medical History: Reports: Hx Hypertension Renal/ Medical History: Denies: Hx Peritoneal Dialysis Past Surgical History: Reports: Hx Appendectomy, Hx Cholecystectomy - 10/07/17, Hx Orthopedic Surgery - L Knee, Hx Tubal Ligation - Immunizations Immunizations up to date: Yes Hx Diphtheria, Pertussis, Tetanus Vaccination: Yes Physical Exam - Vital signs Vitals: Temp Pulse Resp BP Pulse Ox 97.9 F 87 18 145/92 H 96 11/23/18 19:11 11/23/18 19:11 11/23/18 19:11 11/23/18 19:11 11/23/18 19:11 Course - Vital Signs Vital signs: Temp Pulse Resp BP Pulse Ox 97.9 F 87 18 145/92 H 96 11/23/18 19:11 11/23/18 19:11 11/23/18 19:11 11/23/18 19:11 11/23/18 19:11 Doctor's Discharge - Discharge Referrals: JOSELYN ALDRICH MD [Primary Care Provider] - Follow up as needed
[2018-11-23] MEDS ORDERED: PROCHLORPERAZINE EDISYLATE INJ 10 MG/2 ML VIAL IV ONE (19:43)
[2018-11-23] MEDS ORDERED: DIPHENHYDRAMINE HCL 50 MG/ML VIAL IV ONE (19:43)
[2018-11-23] MEDS ORDERED: ONDANSETRON 4 MG TAB.RAPDIS PO ONE (19:43)
[2018-11-23] MEDS ORDERED: KETOROLAC TROMETHAMINE INJ/PF 30 MG/1 ML SDV IV ONE (19:43)
[2018-11-23] MEDS ORDERED: NORMAL SALINE 500 ML IV ONE (19:44)
[2018-11-23 22:24] LABS: ABSOLUTE LYMPHOCYTES (AUTO) 1.2 10^3/uL (0.5-4.7); ABSOLUTE MONOCYTES (AUTO) 0.4 10^3/uL (0.1-1.4); ABSOLUTE NEUT (AUTO) 14.1 10^3/uL (1.7-8.2); BASOPHILS % (AUTO) 0.2 % (0-2); EOSINOPHILS % (AUTO) 0.1 % (0-6); HEMATOCRIT 41.5 % (36.0-47.0); HEMOGLOBIN 14.1 g/dL (12.0-15.5); LYMPHOCYTES % (AUTO) 7.6 % (13-45); MEAN CORPUSCULAR HEMOGLOBIN 30.6 pg (27.0-33.4); MEAN CORPUSCULAR HGB CONC 33.9 g/dL (32.0-36.0); MEAN CORPUSCULAR VOLUME 90 fl (80-97); MONOCYTES % (AUTO) 2.7 % (3-13); PLATELET COUNT 327 10^3/uL (150-450); SEGMENTED NEUTROPHILS % (AUTO) 89.4 % (42-78); TOTAL CELLS COUNTED % (AUTO) 100 %; WHITE BLOOD COUNT 15.8 10^3/uL (4.0-10.5)
[2018-11-23 22:34] LABS: ALBUMIN 4.3 g/dL (3.5-5.0); ALKALINE PHOSPHATASE 98 U/L (38-126); ANION GAP 12 (5-19); ASPARTATE AMINO TRANSFERASE 29 U/L (14-36); BILIRUBIN,DIRECT 0.1 mg/dL (0.0-0.4); BILIRUBIN,TOTAL 0.3 mg/dL (0.2-1.3); BLOOD UREA NITROGEN 12 mg/dL (7-20); CALCIUM 9.5 mg/dL (8.4-10.2); CARBON DIOXIDE 27 mmol/L (22-30); CHLORIDE 100 mmol/L (98-107); GLUCOSE 176 mg/dL (75-110); POTASSIUM 4.9 mmol/L (3.6-5.0); TOTAL PROTEIN 8.3 g/dL (6.3-8.2)
[2018-11-23] MEDS ORDERED: DEXAMETHASONE SOD PHOS INJ 10 MG/1 ML VIAL IV ONE (23:52)
[2018-11-24 00:43] VITALS: BP 114/61
--- NOTE | 2018-11-24 01:06 | ER Document Report ---
Entered by ESTHELA SANDERS SCRIBE 11/23/18 [id number] Acting as scribe for:KATHRYN QUISPE DO ED Headache - General Chief Complaint: Headache Stated Complaint: HEADACHE, NAUSEA,WEAKNESS Time Seen by Provider: 11/23/18 19:38 Primary Care Provider: JOSELYN ALDRICH MD [Primary Care Provider] - Follow up in 3-5 days Mode of Arrival: Wheelchair Information source: Patient Notes: Patient is a 33-year-old female who presents to the emergency department today with complaints of a headache. Patient states she has migraine headaches but has never been on anything for them. Patient states she has tried Tylenol with no relief. TRAVEL OUTSIDE OF THE [place] IN LAST 30 DAYS: No - Related Data Allergies/Adverse Reactions: No Known Allergies Allergy (Verified 08/20/18 19:06) Past Medical History - General Information source: Patient - Social History Smoking Status: Never Smoker Chew tobacco use (# tins/day): No Frequency of alcohol use: None Drug Abuse: None Family History: Arthritis, CAD, COPD, CVA, DM, Hyperlipidemia, Hypertension, Thyroid Disfunction Patient has suicidal ideation: No Patient has homicidal ideation: No - Past Medical History Cardiac Medical History: Reports: Hx Hypertension Neurological Medical History: Reports: Hx Migraine Renal/ Medical History: Denies: Hx Peritoneal Dialysis Past Surgical History: Reports: Hx Appendectomy, Hx Cholecystectomy - 10/07/17, Hx Orthopedic Surgery - L Knee, Hx Tubal Ligation - Immunizations Immunizations up to date: Yes Hx Diphtheria, Pertussis, Tetanus Vaccination: Yes Review of Systems - Review of Systems Constitutional: No symptoms reported EENT: No symptoms reported Cardiovascular: No symptoms reported Respiratory: No symptoms reported Gastrointestinal: No symptoms reported Genitourinary: No symptoms reported Female Genitourinary: No symptoms reported Musculoskeletal: No symptoms reported Skin: No symptoms reported Hematologic/Lymphatic: No symptoms reported Neurological/Psychological: See HPI, Headaches -: Yes All other systems reviewed and negative Physical Exam - Vital signs Vitals: Temp Pulse Resp BP Pulse Ox 97.9 F 87 18 145/92 H 96 11/23/18 19:11 11/23/18 19:11 11/23/18 19:11 11/23/18 19:11 11/23/18 19:11 Interpretation: Normal - General General appearance: Alert In distress: None Notes: Appears uncomfortable. Sunglasses on. - HEENT Head: Normocephalic, Atraumatic Eyes: Normal Pupils: PERRL - Respiratory Respiratory status: No respiratory distress Chest status: Nontender Breath sounds: Normal Chest palpation: Normal - Cardiovascular Rhythm: Regular Heart sounds: Normal auscultation Murmur: No - Abdominal Inspection: Normal Distension: No distension Bowel sounds: Normal Tenderness: Nontender Organomegaly: No organomegaly - Back Back: Normal, Nontender - Extremities General upper extremity: Normal inspection, Nontender, Normal color, Normal ROM, Normal temperature General lower extremity: Normal inspection, Nontender, Normal color, Normal ROM, Normal temperature, Normal weight bearing. No: Hansel's sign - Neurological Neuro grossly intact: Yes Cognition: Normal Orientation: AAOx4 Schofield Coma Scale Eye Opening: Spontaneous Schofield Coma Scale Verbal: Oriented Theodore Coma Scale Motor: Obeys Commands Schofield Coma Scale Total: 15 Speech: Normal Motor strength normal: LUE, RUE, LLE, RLE Sensory: Normal - Psychological Associated symptoms: Normal affect, Normal mood - Skin Skin Temperature: Warm Skin Moisture: Dry Skin Color: Normal Course - Re-evaluation Re-evalutation: 11/24/18 01:05 Patient is a 33-year-old with a history of migraine headaches who comes in with a headache. Most recent imaging of head at the end of last year with no acute findings. Patient feels better after migraine cocktail. She is to follow-up with her primary care doctor and asked for referral to neurology for intermittent migraine headaches. She is neurovascularly intact otherwise. Stable for discharge. - Vital Signs Vital signs: Temp Pulse Resp BP Pulse Ox 97.8 F 80 16 114/61 96 11/24/18 00:34 11/24/18 00:34 11/24/18 00:34 11/24/18 00:34 11/24/18 00:34 - Laboratory Result Diagrams: 11/23/18 21:45 11/23/18 21:45 Laboratory results interpreted by me: 11/23/18 11/23/18 21:45 21:45 WBC 15.8 H Lymph % (Auto) 7.6 L [place] % (Auto) 2.7 L Absolute Neuts (auto) 14.1 H Seg Neutrophils % 89.4 H Glucose 176 H Total Protein 8.3 H - Diagnostic Test Radiology reviewed: Reports reviewed Discharge - Discharge Clinical Impression: Migraine Qualifiers: Migraine type: unspecified Status migrainosus presence: with status migrainosus Intractability: not intractable Qualified Code(s): G43.901 - Migraine, unspecified, not intractable, with status migrainosus Condition: Stable Disposition: HOME, SELF-CARE Instructions: Migraine Headache ([facility]) Additional Instructions: Please talk to your doctor about follow-up with a neurologist for chronic headaches. Prescriptions: Ondansetron [Zofran Odt 4 mg Tablet] 1 tab PO Q6HP PRN #15 tab.rapdis PRN Reason: For Nausea/Vomiting Sumatriptan Succinate [Imitrex 50 mg Tablet] 50 mg PO PRN PRN #10 tablet PRN Reason: Forms: Return to Work Referrals: JOSELYN ALDRICH MD [Primary Care Provider] - Follow up in 3-5 days I personally performed the services described in the documentation, reviewed and edited the documentation which was dictated to the scribe in my presence, and it accurately records my words and actions.
== END 2018-11-24 00:34 | disposition home or self-care (01) ==
LOC: ER 18:55
DX: G43.901 Migraine, unspecified, not intractable, with status migrainosus (principal); R11.0 Nausea; R53.1 Weakness; I10 Essential (primary) hypertension
CPT/HCPCS: 36415; 84702; 85025; 80053; J1200; S0119; J1885; J0780; J7040; J1100; 96361; 96374; 96375; 99284

== ENCOUNTER 2018-12-08 18:54 | Emergency (ER) | payer SELFPAY ==
--- NOTE | 2018-12-08 19:03 | ER Document Report ---
ED Medical Screen (RME) - General Chief Complaint: Abdominal Pain Stated Complaint: LOWER STOMACH PAIN Time Seen by Provider: 12/08/18 19:00 Primary Care Provider: JOSELYN ALDRICH MD [Primary Care Provider] - Follow up as needed Mode of Arrival: Wheelchair Information source: Patient Notes: 33-year-old female presented to ED for complaint of lower abdominal pain bi laterally. She states is been hurting for couple days. She states she has had diarrhea no nausea or vomiting. Last menstrual period was November 09. Denies smoking drinking or illicit drugs. She states there is some burning with urination. I have greeted and performed a rapid initial assessment of this patient. A comprehensive ED assessment and evaluation of the patient, analysis of test results and completion of medical decision making process will be conducted by an additional ED providers. TRAVEL OUTSIDE OF THE [place] IN LAST 30 DAYS: No - Related Data Allergies/Adverse Reactions: No Known Allergies Allergy (Verified 08/20/18 19:06) Past Medical History - Past Medical History Cardiac Medical History: Reports: Hx Hypertension Neurological Medical History: Reports: Hx Migraine Renal/ Medical History: Denies: Hx Peritoneal Dialysis Past Surgical History: Reports: Hx Appendectomy, Hx Cholecystectomy - 10/07/17, Hx Orthopedic Surgery - L Knee, Hx Tubal Ligation - Immunizations Immunizations up to date: Yes Hx Diphtheria, Pertussis, Tetanus Vaccination: Yes Doctor's Discharge - Discharge Referrals: JOSELYN ALDRICH MD [Primary Care Provider] - Follow up as needed
[2018-12-08 19:37] LABS: ABSOLUTE BASOPHILS # (AUTO) 0.1 10^3/uL (0.0-0.2); ABSOLUTE EOSINOPHILS # (AUTO) 0.1 10^3/uL (0.0-0.6); ABSOLUTE LYMPHOCYTES (AUTO) 2.5 10^3/uL (0.5-4.7); ABSOLUTE MONOCYTES (AUTO) 0.7 10^3/uL (0.1-1.4); ABSOLUTE NEUT (AUTO) 6.2 10^3/uL (1.7-8.2); APPEARANCE,URINE CLOUDY; BASOPHILS % (AUTO) 0.6 % (0-2); BILIRUBIN,URINE NEGATIVE (NEGATIVE); COLOR,URINE YELLOW; EOSINOPHILS % (AUTO) 1.5 % (0-6); GLUCOSE, URINE NEGATIVE (NEGATIVE); HEMATOCRIT 41.2 % (36.0-47.0); HEMOGLOBIN 13.8 g/dL (12.0-15.5); KETONES,URINE NEGATIVE (NEGATIVE); LYMPHOCYTES % (AUTO) 26.1 % (13-45); MEAN CORPUSCULAR HEMOGLOBIN 30.5 pg (27.0-33.4); MEAN CORPUSCULAR HGB CONC 33.5 g/dL (32.0-36.0); MEAN CORPUSCULAR VOLUME 91 fl (80-97); MONOCYTES % (AUTO) 7.1 % (3-13); PLATELET COUNT 344 10^3/uL (150-450); PROTEIN,URINE NEGATIVE (NEGATIVE); RED BLOOD COUNT 4.51 10^6/uL (3.72-5.28); RED CELL DISTRIBUTION WIDTH 14.2 % (11.5-14.0); SEGMENTED NEUTROPHILS % (AUTO) 64.7 % (42-78); TOTAL CELLS COUNTED % (AUTO) 100 %; URINE SPECIFIC GRAVITY 1.024; WHITE BLOOD COUNT 9.6 10^3/uL (4.0-10.5)
[2018-12-08 19:51] LABS: ALBUMIN 4.1 g/dL (3.5-5.0); ALKALINE PHOSPHATASE 83 U/L (38-126); ANION GAP 14 (5-19); ASPARTATE AMINO TRANSFERASE 31 U/L (14-36); BILIRUBIN,DIRECT 0.2 mg/dL (0.0-0.4); BILIRUBIN,TOTAL 0.2 mg/dL (0.2-1.3); BLOOD UREA NITROGEN 13 mg/dL (7-20); CARBON DIOXIDE 24 mmol/L (22-30); CHLORIDE 104 mmol/L (98-107); GLUCOSE 111 mg/dL (75-110); POTASSIUM 3.8 mmol/L (3.6-5.0); TOTAL PROTEIN 8.1 g/dL (6.3-8.2)
[2018-12-08] MEDS ORDERED: AZITHROMYCIN 250 MG TABLET PO ONE (21:59)
[2018-12-08] MEDS ORDERED: CEFTRIAXONE INJ 250 MG VIAL IM ONE (21:59)
[2018-12-08] MEDS ORDERED: LIDOCAINE 1% INJ-PF (10 MG/ML) 30 ML SDV INJ ONE (21:59)
--- NOTE | 2018-12-08 22:17 | ER Document Report ---
ED General - General Chief Complaint: Abdominal Pain Stated Complaint: LOWER STOMACH PAIN Time Seen by Provider: 12/08/18 19:00 Primary Care Provider: JOSELYN ALDRICH MD [HONORARY] - Follow up as needed Mode of Arrival: Wheelchair TRAVEL OUTSIDE OF THE [place] IN LAST 30 DAYS: No - HPI Notes: Patient is a 33-year-old female with history of tubal ligation and cholecystectomy who presents complaining of lower pelvic pain bilaterally with some burning with urination over the past 2 to 3 days. Patient states that she has had some diarrhea recently without any black stool or red stool noted. She has not noticed any vaginal discharge, odor, or bleeding. Denies drug allergies. She is able to eat and drink without difficulty otherwise. Denies . Denies any headache, fever, neck pain, URI, sore throat, chest pain, palpitations, syncope, cough, shortness of breath, wheeze, dyspnea, nausea/vomiting, urinary retention, hematuria, back pain, loss of control of bowel or bladder, numbness/tingling, saddle anesthesia, muscle paralysis/weaknes s, or rash. - Related Data Allergies/Adverse Reactions: No Known Allergies Allergy (Verified 12/08/18 19:02) Past Medical History - General Information source: Patient - Social History Smoking Status: Never Smoker Chew tobacco use (# tins/day): No Frequency of alcohol use: None Drug Abuse: None Family History: Arthritis, CAD, COPD, CVA, DM, Hyperlipidemia, Hypertension, Thyroid Disfunction Patient has suicidal ideation: No Patient has homicidal ideation: No - Past Medical History Cardiac Medical History: Reports: Hx Hypertension Neurological Medical History: Reports: Hx Migraine Renal/ Medical History: Denies: Hx Peritoneal Dialysis Past Surgical History: Reports: Hx Appendectomy, Hx Cholecystectomy - 10/07/17, Hx Orthopedic Surgery - L Knee, Hx Tubal Ligation - Immunizations Immunizations up to date: Yes Hx Diphtheria, Pertussis, Tetanus Vaccination: Yes Review of Systems - Review of Systems -: Yes All other systems reviewed and negative Physical Exam - Vital signs Vitals: Temp Pulse Resp BP Pulse Ox 98.9 F 92 16 151/76 H 96 12/08/18 19:04 12/08/18 19:04 12/08/18 19:04 12/08/18 19:04 12/08/18 19:04 - Notes Notes: PHYSICAL EXAMINATION: accompanied for female exam by female RN Eveline. GENERAL: Well-appearing, well-nourished and in no acute distress. HEAD: Atraumatic, normocephalic. EYES: Pupils equal round and reactive to light, extraocular movements intact, conjunctiva are normal. ENT: Nares patent, oropharynx clear without exudates. Moist mucous membranes. EAC's clear bilaterally. TMs intact bilaterally without erythema fluid or perforation. No tonsillar hypertrophy or erythema. No sinus tenderness. NECK: Normal range of motion, supple without lymphadenopathy LUNGS: Breath sounds clear to auscultation bilaterally and equal. No wheezes rales or rhonchi. HEART: Regular rate and rhythm without murmurs ABDOMEN: Soft, nondistended abdomen. No guarding, no rebound. Normal bowel sounds present. CVA tenderness negative bilaterally. + mild lower pelvic tenderness L>R. no tenderness at McBurney point. Female : No inguinal adenopathy. External genitalia without erythema, lesions, or masses. Vaginal mucosa pink with scant white and bloody discharge. Cervix parous, pink, and without discharge. Uterus is smooth. No adnexal tenderness. No CMT. Musculoskeletal: FROM to passive/active. Strength 5+/5. Extremities: No cyanosis/clubbing/edema b/l. Peripheral pulses 2+. Capillary refill less than 3 seconds. NEUROLOGICAL: Normal speech, normal gait. PSYCH: Normal mood, normal affect. SKIN: Warm, Dry, normal turgor, no rashes or lesions noted. Course - Re-evaluation Re-evalutation: 12/09/18 01:14 Patient is an afebrile, well-hydrated, 33-year-old female who presents to the ED with dysuria, BV, and pelvic pain otherwise unspecified. Vitals are acceptable without any significant tachycardia, tachypnea, or hypoxia. PE is otherwise unremarkable. No CMT or adnexal tenderness. No tenderness at [place] Point. See labs. See wet mount results. Chlam/gonorrhea tests are negative. Patient is nontoxic-appearing is tolerating p.o. without any difficulties. Transvaginal ultrasound was also unremarkable for any acute pathology. No other labs or imaging warranted at this time based on H&P. Low suspicion/risk for acute appendicitis, bowel obstruction, acute cholecystitis, acute cholangitis, perforated diverticulitis, incarcerated hernia, pancreatitis, perforated ulcer, peritonitis, sepsis, pelvic inflammatory disease, ectopic , tubo- ovarian abscess, ovarian torsion, or other systemic emergent condition at this time. Patient is aware that her condition can change from initial presentation and she needs to monitor symptoms closely and seek medical attention if any acute changes. I will send her home with prescription for Flagyl/keflex. Conservative measures otherwise for symptoms. Recheck with your PCM/OBGYN in 3- 5 days. Return to the ED with any worsening/concerning symptoms otherwise as reviewed in discharge. Patient is in agreement. 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 - Discharge Clinical Impression: Dysuria, Bacterial vaginosis, Pelvic pain Condition: Stable Disposition: HOME, SELF-CARE Instructions: Pelvic Pain ([facility]), Vaginosis, Bacterial ([facility]), Metronidazole ([facility]) Additional Instructions: Maintain fluid intake Proper hygienic technique Keep the skin clean Tylenol/ibuprofen as needed F/u with your PCM/OBGYN in 3-5 days for a recheck Return to the ED with any development of GIVENS/fever, trouble with vision, eye redness, worsening pain, urethral discharge, urinary retention, blood in the urine, flank pain, abdominal pain, n/v, Chest Pain, shortness of breath, joint pains, trouble breathing, or any other worsening/concerning symptoms as needed otherwise. Prescriptions: Metronidazole [Flagyl] 500 mg PO BID #14 tablet Cephalexin Monohydrate [Keflex 500 mg Capsule] 500 mg PO TID #21 capsule Forms: Elevated Blood Pressure Referrals: JOSELYN ALDRICH MD [HONORARY] - Follow up as needed [facility] [Provider Group] - Follow up as needed
[2018-12-08 23:08] LABS: RBCS (WET MOUNT) 1+ RBCS SEEN; T.VAGINALIS (WET MOUNT) NO TRICHOMONAS SEEN; WBCS (WET MOUNT) 4+ WBCS SEEN; YEAST (WET MOUNT) NO YEAST SEEN
[2018-12-08 23:09] LABS: BACTERIA (WET MOUNT) 3+ BACTERIA SEEN; EPITHELIALS (WET MOUNT) 4+ EPITHELIALS SEEN
--- NOTE | 2018-12-08 23:32 | RADIOLOGY REPORT (SQ) ---
EXAM DESCRIPTION: US PELVIS TRANSVAGINAL COMPLETED DATE/TME: 12/08/2018 21:59 CLINICAL HISTORY: 33 years, Female, lower pelvic pain EXAM DESCRIPTION: CLINICAL HISTORY: lower pelvic pain COMPARISON: None. FINDINGS: [ ] [transvaginal ] images of the pelvis were submitted. The uterus is homogeneous in echotexture without focal mass. Right ovary measures 30 x 17 x 17 mm and left ovary 22 x 24 x 23 mm. Uterus measures 94 x 64 x 68 mm. Endometrial thickness 13 mm. Cervix length 23 mm. There is no evidence of mass. Flow is seen in each ovary. There is no sonographic evidence of ovarian torsion. There is no significant free fluid in the pelvis. IMPRESSION: Thickened endometrium. Otherwise unremarkable.
[2018-12-09 00:35] LABS: CHLAM PCR NOT DETECTED (NOT DETECT)
[2018-12-09] MEDS ORDERED: METRONIDAZOLE 500 MG TABLET PO ONE (01:21)
[2018-12-09] MEDS ORDERED: CEPHALEXIN 500 MG CAPSULE PO ONE (01:21)
[2018-12-09 01:47] VITALS: BP 150/72
== END 2018-12-09 01:40 | disposition home or self-care (01) ==
LOC: ER 18:54
DX: N76.0 Acute vaginitis (principal); B96.89 Other specified bacterial agents as the cause of diseases classified elsewhere; R30.0 Dysuria; R10.2 Pelvic and perineal pain; R10.30 Lower abdominal pain, unspecified; R19.7 Diarrhea, unspecified; I10 Essential (primary) hypertension
CPT/HCPCS: 36415; 87086; 87210; 84703; 85025; 87088; 80053; 81001; 87186; 87491; 87591; 76830; 93976; J3490; J0696; 96372; 99284

== ENCOUNTER 2019-02-14 12:31 | Emergency (ER) | payer SELFPAY ==
[2019-02-14 12:43] VITALS: BP 143/86
[2019-02-14] MEDS ORDERED: KETOROLAC TROMETHAMINE 60 MG/2 ML SDV IM ONE (13:58)
[2019-02-14] MEDS ORDERED: DEXAMETHASONE SOD PHOS INJ 10 MG/1 ML VIAL IM ONE (13:58)
[2019-02-14] MEDS ORDERED: CYCLOBENZAPRINE HCL 10 MG TABLET PO ONE (13:58)
[2019-02-14] MEDS ORDERED: LIDOCAINE 5% (700 MG) TRANSDERMAL ADH..PATCH TP ONE (13:58)
--- NOTE | 2019-02-14 13:59 | ER Document Report ---
HPI - HPI Time Seen by Provider: 02/14/19 13:57 Notes: 33-year-old female patient presents emergency department chief complaint of right low back pain. Patient reports symptoms ongoing for 3 days. Denies any injury. Denies any dysuria or radiation to the abdomen. Denies any history of kidney stones. States that the pain is worse with any movement. Denies any loss of control of bowel or bladder. - REPRODUCTIVE Reproductive: DENIES: : Past Medical History - General Information source: Patient - Social History Smoking Status: Never Smoker Frequency of alcohol use: None Family History: Arthritis, CAD, COPD, CVA, DM, Hyperlipidemia, Hypertension, Thyroid Disfunction - Past Medical History Cardiac Medical History: Reports: Hx Hypertension Neurological Medical History: Reports: Hx Migraine Renal/ Medical History: Denies: Hx Peritoneal Dialysis Past Surgical History: Reports: Hx Appendectomy, Hx Cholecystectomy - 10/07/17, Hx Orthopedic Surgery - L Knee, Hx Tubal Ligation - Immunizations Immunizations up to date: Yes Hx Diphtheria, Pertussis, Tetanus Vaccination: Yes Vertical Provider Document - CONSTITUTIONAL Notes: PHYSICAL EXAMINATION: GENERAL: Well-appearing, well-nourished and in no acute distress. HEAD: Atraumatic, normocephalic. EYES: Pupils equal round extraocular movements intact, conjunctiva are normal. ENT: Nares patent NECK: Normal range of motion LUNGS: No respiratory distress Abdomen: Abdomen soft, nontender, no guarding no rebound. No CVA tenderness. Musculoskeletal: Normal range of motion, tenderness to palpation to the lumbar paraspinous area on the right side, no vertebral tenderness, step-off or deformity. NEUROLOGICAL: Normal speech, normal gait. PSYCH: Normal mood, normal affect. SKIN: Warm, Dry, normal turgor, no rashes or lesions noted. - INFECTION CONTROL TRAVEL OUTSIDE OF THE [place] IN LAST 30 DAYS: No Course - Re-evaluation Re-evalutation: Exam most consistent with musculoskeletal strain with sciatica. Patient also has mild UTI on the urinalysis. Will start patient on muscle relaxers and antibiotics at this time. ED return precautions were discussed, patient ve rbalized understanding and agreement with same. The patient's emergency department workup and current diagnosis were explained to the patient and or family. Follow-up instructions were provided. Me dications if prescribed were discussed. Instructions for when to return to the emergency department including specific worrisome symptoms were discussed with the patient and/or family. - Vital Signs Vital signs: Temp Pulse Resp BP Pulse Ox 98.5 F 78 16 143/86 H 97 02/14/19 12:41 02/14/19 12:41 02/14/19 12:41 02/14/19 12:41 02/14/19 12:41 Discharge - Discharge Clinical Impression: Low back pain Qualifiers: Chronicity: acute Back pain laterality: right Sciatica presence: with sciatica Sciatica laterality: sciatica of right side Qualified Code(s): M54.41 - Lumbago with sciatica, right side Urinary tract infection Qualifiers: Urinary tract infection type: site unspecified Hematuria presence: without hematuria Qualified Code(s): N39.0 - Urinary tract infection, site not specified Condition: Stable Disposition: HOME, SELF-CARE Additional Instructions: I believe your back pain is likely coming from a musculoskeletal strain. Your urine also shows findings consistent with a urinary tract infection. Please take all the antibiotics as directed even if your symptoms have improved. Please follow-up with your primary care physician as needed. Return to e mergency room if you develop fever >101F, persistent vomiting, become lethargic, have severe pain in your sides, or any other symptoms that are concerning to you. Prescriptions: Cyclobenzaprine HCl [Flexeril 10 mg Tablet] 10 mg PO TIDP PRN #15 tab PRN Reason: Cephalexin [Keflex] 500 mg PO BID #14 capsule Referrals: [facility] [Primary Care Provider] - Follow up as needed
[2019-02-14 14:54] LABS: APPEARANCE,URINE CLEAR; BILIRUBIN,URINE NEGATIVE (NEGATIVE); COLOR,URINE YELLOW; GLUCOSE, URINE NEGATIVE (NEGATIVE); KETONES,URINE TRACE mg/dL (NEGATIVE); LEUKOCYTE ESTERASE,URINE SMALL (NEGATIVE); NITRITE,URINE NEGATIVE (NEGATIVE); PROTEIN,URINE NEGATIVE (NEGATIVE); UROBILINOGEN,URINE NEGATIVE mg/dL (<2.0)
== END 2019-02-14 16:25 | disposition home or self-care (01) ==
LOC: ER 12:31
DX: N39.0 Urinary tract infection, site not specified (principal); M54.41 Lumbago with sciatica, right side; I10 Essential (primary) hypertension; Z90.49 Acquired absence of other specified parts of digestive tract; Z98.51 Tubal ligation status
CPT/HCPCS: 99283; 96372; 81001; J1885; J1100

== ENCOUNTER 2019-11-13 09:03 | Emergency (ER) | payer SELFPAY ==
[2019-11-13] MEDS ORDERED: DOCUSATE SODIUM 100 MG CAPSULE BTH_EAR ONE (09:47)
--- NOTE | 2019-11-13 09:53 | ER Document Report ---
Entered by NEIDA ODELL SCRIBE 11/13/1934 Acting as scribe for:JOSÉ CALDERÓN MD ED ENT - General Chief Complaint: Ear Pain Stated Complaint: EAR PAIN,FEEL CLOGGED Time Seen by Provider: 11/13/19 09:24 [facility] [NO LOCAL MD] - Follow up as needed Mode of Arrival: Ambulatory Information source: Patient Notes: This 34 year old female patient presents to the ED today with complaints of bilateral ear pain with associated difficulty hearing for the past x3 days. Denies fever or cough. TRAVEL OUTSIDE OF THE [place] IN LAST 30 DAYS: No - Related Data Allergies/Adverse Reactions: No Known Allergies Allergy (Verified 11/13/19 09:09) Past Medical History - General Information source: Patient, [facility] Records - Social History Smoking Status: Never Smoker Cigarette use (# per day): No Chew tobacco use (# tins/day): No Smoking Education Provided: No Frequency of alcohol use: None Drug Abuse: None Family History: Arthritis, CAD, COPD, CVA, DM, Hyperlipidemia, Hypertension, T hyroid Disfunction Patient has suicidal ideation: No Patient has homicidal ideation: No - Past Medical History Cardiac Medical History: Reports: Hx Hypertension - unmedicated Neurological Medical History: Reports: Hx Migraine Past Surgical History: Reports: Hx Appendectomy, Hx Cholecystectomy - 10/07/17, Hx Orthopedic Surgery - L Knee, Hx Tubal Ligation - Immunizations Immunizations up to date: Yes Hx Diphtheria, Pertussis, Tetanus Vaccination: Yes Review of Systems - Review of Systems Constitutional: See HPI. denies: Fever EENT: See HPI Cardiovascular: No symptoms reported Respiratory: See HPI. denies: Cough Gastrointestinal: No symptoms reported Genitourinary: No symptoms reported Female Genitourinary: No symptoms reported Musculoskeletal: No symptoms reported Skin: No symptoms reported Hematologic/Lymphatic: No symptoms reported Neurological/Psychological: No symptoms reported -: Yes All other systems reviewed and negative Physical Exam - Vital signs Vitals: Temp Pulse Resp BP Pulse Ox 98.1 F 84 17 161/96 H 98 11/13/19 09:08 11/13/19 09:08 11/13/19 09:08 11/13/19 09:08 11/13/19 09:08 Interpretation: Hypertensive - General General appearance: Appears well, Alert - HEENT Head: Normocephalic, Atraumatic Eyes: Normal Pupils: PERRL External canal: Cerumen impaction - Bilateral, hard wax deep in the canal that is obscuring the TM - Respiratory Respiratory status: No respiratory distress Chest status: Nontender Breath sounds: Normal Chest palpation: Normal - Cardiovascular Rhythm: Regular Heart sounds: Normal auscultation Murmur: No Friction rub: No Gallop: None auscultated - Abdominal Inspection: Obese Distension: No distension Bowel sounds: Normal Tenderness: Nontender - Abdomen soft Organomegaly: No organomegaly - Back Back: Normal, Nontender - Extremities General upper extremity: Normal inspection General lower extremity: Normal inspection - Neurological Neuro grossly intact: Yes Orientation: AAOx4 [place] Coma Scale Eye Opening: Spontaneous [place] Coma Scale Verbal: Oriented [place] Coma Scale Motor: Obeys Commands [place] Coma Scale Total: 15 - Psychological Associated symptoms: Normal affect, Normal mood - Skin Skin Temperature: Warm Skin Moisture: Dry Skin Color: Normal Course - Re-evaluation Re-evalutation: 11/13/19 11:25 After irrigation, the right ear is clear. There are very large chunks of wax that came out. The TM is completely visible and normal in appearance. The patient's hearing has been restored to the right side. The left ear still appears to have wax obscuring the TM. Additional irrigation will be done after it is soaked longer with the Colace drops. 11/13/19 13:35 At this time there is still some wax seen on the canal minor on the left side, but the TM can be visualized, and patient states her hearing is back to normal in both ears. She states she does use Q-tips regularly, I advised her against doing that until she has completely gotten the wax out of her left ear, then she should use something like Debrox possibly once a week so she does not build up wax that she packs in with her Q-tips. - Vital Signs Vital signs: Temp Pulse Resp BP Pulse Ox 98.1 F 84 17 161/96 H 98 11/13/19 09:09 11/13/19 09:08 11/13/19 09:08 11/13/19 09:08 11/13/19 09:08 Discharge - Discharge Clinical Impression: Impacted cerumen of both ears, Elevated blood pressure reading Condition: Stable Disposition: HOME, SELF-CARE Additional Instructions: Cerumen Impaction The physician found a severe buildup of earwax in your ear canal, called a cerumen impaction. A large plug of wax can cause earache, decreased hearing, or itching. It can even lead to infection of the outer ear. An impaction of earwax can be removed by the physician using special ins truments, or can be irrigated out using a stream of water (often a little of both is required). Some less severe impactions are removed using ear drops that dissolve wax. In the future, don't get soap in your ear canal. Soap doesn't remove wax -- it simply hardens it in place. Don't use cotton swabs. These just push the wax into large clumps, where it doesn't flow out normally. Dust and smoke also contribute to wax buildup. Earwax softening drops are available without prescription, and can be used periodically. Contact the doctor if you develop decreased hearing, earache, drainage from the ear, or severe headache. High Blood Pressure When your blood pressure was taken today it was elevated. Pre-hypertension/Hypertension: The patient has been informed that they may estes ve pre-hypertension or Hypertension based on a blood pressure reading in the emergency department. I recommend that the patient call the primary care provider listed on their discharge instructions or a physician of their choice this week to arrange follow up for further evaluation of possible pre- hypertension or Hypertension. Sometimes, stress or illness causes a temporary elevation of your blood pressure. We suggest that you get your blood pressure measured three more times during the next few days to see if this is more than a temporary abnormality. If your blood pressure is greater than 150/90 on each occasion, you must have treatment. Some simple things you can do to help are: If you have blood pressure medicine but aren't using it regularly, start taking it again. Get some aerobic exercise for at least 20 minutes on a daily basis. (See your doctor before beginning a new exercise program.) Eat a low-fat diet. Lose excess weight. Avoid salty foods and avoid adding salt to any of the foods you eat. Avoid diet pills, decongestants, "energizing" herbs, and other medicines that elevate blood pressure. If left untreated, hypertension greatly enhances your risk for developing heart disease and strokes. Please don't ignore this problem. Check your blood pressure at least once a day for the next few days to see if it remains elevated. Follow-up with a local medical doctor to manage your blood pressure if it does remain elevated. Use Debrox earwax removal drops in your ears to keep the wax under control. Do not use Q-tips as these will only push the wax down into the ear canal. Follow-up with a local primary care provider if further problems. RETURN TO THE EMERGENCY ROOM IF ANY NEW OR WORSENING SYMPTOMS. Referrals: [facility] [NO LOCAL MD] - Follow up as needed I personally performed the services described in the documentation, reviewed and edited the documentation which was dictated to the scribe in my presence, and it accurately records my words and actions.
[2019-11-13 14:48] VITALS: BP 127/80
== END 2019-11-13 14:48 | disposition home or self-care (01) ==
LOC: ER 09:03
DX: H61.23 Impacted cerumen, bilateral (principal); H92.01 Otalgia, right ear; H92.02 Otalgia, left ear; I10 Essential (primary) hypertension
CPT/HCPCS: 99282